=== PATIENT | female | born 1950 | race Caucasian/White ===

== ENCOUNTER 2024-01-25 14:23 | Outpatient (RCR) | payer MEDICARE, MEDICAID, SELFPAY ==
--- NOTE | 2024-01-25 17:02 | CTCCONSULT_ITS ---
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 Chilango Clinton DO Reason for consultation. 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 History of Present Illness: Patient is a 74-year-old lady with long history of smoking felt growing mass in the left neck, associated with some trouble swallowing and CT neck with contrast 11/07 revealed extensive infiltrating irregular enhancing soft tissue mass involving the epiglottis bilateral aryepiglottic folds left more than right with possible extension into the left false cord. There were also enlarged irregular left jugulodigastric and posterior cervical chain lymph nodes me asuring up to 2.3 cm in size concerning for tiffanie mets. The left neck lymph node underwent fine-need le aspiration 12/28/2023 revealing suspicious for metastatic carcinoma. On 01/13/2024 patient underwe nt rigid laryngoscopy with biopsy of epiglottis under general anesthesia. There was a large exophyti c mass including a portion of the anterior epiglottis as well as posterior surface heavily involved. Airway was intact. Biopsy revealed moderate chronic inflammation and negative for dysplasia or raheem gnancy. Had abdomen pelvis CT 12/16/2022 showing prominent sigmoid colon diverticulosis and a 4 mm p ulmonary nodule left lower lobe. Past Medical History: Prior CVA MS diabetes gallbladder stones Medications Effexor Singulair Lipitor hydrochlorothiazide Lasix Protonix Pepcid lisinopril iron Allergies none to meds Social History: Age of first 14 3 pregnancies 3 births currently lives with boyfriend in [facility] and lives part-time in [place]. Has smoked half pack a day for many years Review of Systems: Has trouble swallowing has had multiple joint pain Physical Exam: General: Well-appearing lady no acute distress HEENT: Easily visible and palpable epiglottic mass which measures about 3 x 4 cm with apparent extens ion into the posterior pharyngeal wall. Left neck mass in the upper jugular and posterior region cynthia suring 3 x 5 cm. Patient is edentulous with false teeth CV: Chest clear to auscultation heart regular rate and rhythm ABD: Soft no organomegaly tenderness EXT: No cyanosis clubbing or edema Assessment: 1. Patient with left neck mets N2 size with an obvious malignancy involving the supraglot tic region of epiglottis and adjacent tissues. 2. 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 3.. Even though the biopsy of the epiglottis area was negative, clinically and radiographically it was quite obviously a malignancy, and Dr Pabon who I spoke with today was concerned about her airway and wanted to start treatment as soon as possible not risk with delay or potential complication with a another biopsy attempt in the airway area. 4. PET scan for staging 5. Port will be scheduled. Patient refuses G-tube. 6. Medical oncologist Dr. Lazaro to see patient. 7. Approximately 7000 cGy via VMAT with modern treatment planning. Side effects explained. 8. Thank you very much for allowing me to evaluate and manage this patient. Cc: Chilango Pabon DO Electronically signed by: Marko Duran MD, DABR 01/25/2024 4:59 PM
--- NOTE | 2024-01-25 17:14 | CTCTXPLN_ITS ---
[facility] [place] [address] [place], [place] [address] Physician Clinical Treatment Planning Note Date of Service: 01/25/2024 Name: LEVI Ledbetter.: 1950 The patient has agreed to proceed with Radiation therapy. Tests and supporting medical records were interpreted to assist in defining the tumor location and extent of disease. Further imaging will be necessary to contour and delineate the volume to which the XRT will be provided. A. Treatment Intent: curative B. Modality: 6 MV C. Requested Technique: D. Treatment Site: head and neck E. Critical structures to be contoured on plan: F. In order to accomplish this plan, I am ordering/Prescribing the followin. Simulations (s) will be performed to accomplish a reproducible treatment position, to determine op timal treatment portals/beam arrangements, to design beam modifying devices and verify treatment port als on patient prior to the commencement of Radiation Therapy. 2. Devices; for immobilization and beam shapin. CT Guidance for placement of XRT cortés Scan area: 4. Portal images Frequency: 5. Invivo transit dose measurement once per week on all VMAT patients. 6. Special Physics Consult Requested for: 7. Other requests: special treatment chemo radiaton G. Dose Objectives: curative Electronically signed by: Marko Duran M.D. 01/25/2024 5:10 PM
--- NOTE | 2024-01-25 17:14 | CTCTXPLNST_ITS ---
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 Pt Treatment Intent: curative palliative other: Stage: Procedure CPT # Ordered Spec. Procedure 26583 1 Nugent Complex (set-up) 49105 Head and neck 1 Nugent Simple 43928 IMRT Plan 41069 1 MLC Devices VMAT 95200 3 Nugent 3 D 14773 TRTMT dev Complex 86670 aquaplast 1 TRTMT dev simple 38970 Basic Lawrence 51947 9 Special Dosimetry 58667 Spec Physics 72184 Port Films 12854 SRS Cranial/1FX 59527 SBR 5 FX or Less /ex: 5 = 5 fx 80465 IMRT Simple 01718 7000 35 IMRT Complex 68374 IGRT 06232 33 Rad del com 6- 36980 Rad del com 01-24 02010 Cont Med Physics 59259 7 Treatment Planning 83458 1 Rad del com 20 mev 18451 Rad del inter 6 73986 Rad del inter 01-24 28701 Rad del simple 6 02124 Rad del simple 01-24 40300 Special Port Plan 63662 TRTMT dev inter 86190 Isodose Complex 22347 Isodose simple 46654 Resp Motion Mgmt Simulation 95466 Placement of Fiducial Markers 37717 Electronically Signed By: Marko Duran MD, LARONR 01/25/2024 5:12 PM
== END 2024-02-05 23:59 | disposition home or self-care (01) ==
LOC: SCTC 14:23
PROVIDERS: PCP Family Medicine; Referring Provider Otolaryngology; Visit Provider Radiology Therapeutic Radiology
DX: C32.1 Malignant neoplasm of supraglottis (principal); C77.0 Secondary and unspecified malignant neoplasm of lymph nodes of head, face and neck; Z87.891 Personal history of nicotine dependence
CPT/HCPCS: 99213; G0463

== ENCOUNTER 2024-02-02 13:44 | Outpatient (AMB) | payer MEDICARE, MEDICAID, SELFPAY ==
--- NOTE | 2024-02-02 13:57 | PD.GSCLVISIT ---
Vital Signs - [facility] 02/02/24 13:59 Height 1.57 m Height Method Stated Weight 54.459 kg Weight Measurement Method Standing Scale BMI 22.1 BP 150/80 H Blood Pressure Source Automatic Cuff Blood Pressure Location Right Upper Arm Position Sitting Respiration 18 Pulse 75 Pulse Source Monitor Temp 97.2 F Temp Source Temporal Artery Scan Pulse Oximetry (%) 92 L Oxygen Delivery Method Room Air Med/Allergies Allergies & Medications Allergies No Known Allergies Allergy (Verified 02/02/24 14:03) Medication Reconciliation atorvastatin 40 mg tablet 40 mg PO QDAY 01/13/24 [History Confirmed 02/02/24] empagliflozin 25 mg tablet (Jardiance) 25 mg PO QAM 01/13/24 [History Confirmed 02/02/24] famotidine 20 mg tablet 20 mg PO QDAY 01/13/24 [History Confirmed 02/02/24] ferrous sulfate 325 mg (65 mg iron) tablet 325 mg PO TID 01/13/24 [History Confirmed 02/02/24] furosemide 20 mg tablet 20 mg PO BID 01/13/24 [History Confirmed 02/02/24] hydrochlorothiazide 25 mg tablet 25 mg PO QAM 01/13/24 [History Confirmed 02/02/24] hydrocodone 5 mg-acetaminophen 325 mg tablet 1 tab PO Q6H PRN Pain 01/13/24 [History Confirmed 02/02/24] lisinopril 2.5 mg tablet 2.5 mg PO QDAY 01/13/24 [History Confirmed 02/02/24] montelukast 10 mg tablet 10 mg PO QPM 01/13/24 [History Confirmed 02/02/24] pantoprazole 40 mg tablet,delayed release 40 mg PO QDAY 01/13/24 [History Confirmed 02/02/24] venlafaxine 75 mg tablet 75 mg PO QDAY 01/13/24 [History Confirmed 02/02/24] MA Intake Visit Data Collection New Patient or Established: Established Patient (seen at [facility] within 3 years) Reason for Visit:: PORT INSERTION REFERRAL Pain Present Currently: Yes Pain Location: Abdomen Pain scale:: 10 Pain Scale Used: Karly/Numerical Vision Specialist Required: No PCP or OBGYN visit in last 3 months: Yes Hx Now: No Do You Feel Safe at Home: Yes Authorities Contacted: N/A Smoking Status Smoking Status: Light (< 1 pack/day) Cessation Counseling Provided: LEVI was advised that quitting smoking is the single most important factor to protect the health of themselves and their family. Discussed the benefits of quitting smoking with patient. Encouraged patient to quit smoking and provided Cessation assistance materials and resources. Tobacco Use: Cigarette Years smoked: 50 Are you interested in quitting?: No Immunization / Flu Flu Vaccine in the Last 12 Months: No Flu Vaccine Exclusion Criteria: No Exclusion Criteria Past Medical History Past Medical History NEUROLOGIC: Positive Neurological Disorders and Cerebrovascular Accident ([facility] 2023); Negative Seizures CARDIAC: Positive Cardiac Disorders, Myocardial Infarction (yrs ago), Coronary Artery Disease and Peripheral Vascular Disease; Negative Congestive Heart Failure RESPIRATORY: Positive Asthma; Negative Chronic Obstructive Pulmonary Disease (COPD) GASTROINTESTINAL: Negative Gastrointestinal Disorders or Hepatitis GENITOURINARY: Positive Genitourinary Disorders and Renal Disease (stage 4) REPRODUCTIVE: Positive Previous Pregnancies (3) MUSCULOSKELETAL: Positive Arthritis and Fractures (elbow and toe many yrs ago) ENT: Positive Cataracts (bilateral) ENDOCRINE: Positive Endocrine Disorders and Diabetes Mellitus Type 2; Negative Diabetes Mellitus Type 1 HEMATOLOGIC: Negative Blood Disorders PSYCHO/SOCIAL: Positive Depression OTHER HISTORY: Positive Falls and Cancer (uterine); Negative Hospitalization (March for CVA,), Autoimmune Disease, Shingles, Blood Transfusions, Blood Transfusion Reaction or Anesthesia Reactions Family History FAMILY HISTORY: Positive Family Cancer and Family Surgery; Negative Family Psychiatric Problems, Family Respiratory Disorders, Family Cardiac Disorders, Family Gastrointestinal Problems or Family Anesthesia Reaction Surgical History SURGICAL: Positive Vascular Surgery (Recent femoral stents), Coronary Stent (5 yrs ago), Cardiac Catheterization, Pacemaker and Hysterectomy (with BSO) Social History SMOKING STATUS: Smoking status: Light (< 1 pack/day) ALCOHOL: Alcohol Intake: Never HOUSING: Housing: House [facility] HPI Narrative 74F recently diagnosed with stage Jesus supraglottic laryngeal CA. Pt had noticed a growing mass in the left neck and has undergone workup including CT, FNA of lymph node and rigid laryngoscopy with biopsy. She reports difficulty swallowing and lying down flat, denies any history of neck/chest catheterization PMH: AL, DM, CVA PSHx: PCI with cardiac stent in remote past, stents in each lower extremity Meds: singular, lipitor, HCTZ, protonix, lisinopril, iron; pt denies any antiplt or anticoagulation Allergies: NKDA ROS Review of Systems Systems Reviewed: All systems reviewed, normal except as documented Objective/Exam General General Appearance: alert, cooperative and well groomed Neck Neck exam: Present other (palpable left neck mass; no masses on right neck) Resp Respiratory exam: Absent respiratory distress Assessment & Plan Diagnosis / Problem List (1) Laryngeal cancer: Status: Acute Assessment & Plan: 74F needing chemoport to treat stage IV laryngeal CA. I explained benefits/risk of procedure including infection, bleeding, and injury to nearby structures including pneumothorax. I also explained that if the catheter cannot be safely placed into the R internal jugular vein I will have to abort as the left side of the neck is not available. Pt expressed understanding and agrees to proceed Advanced Care Planning Advance care planning discussed with:: patient Office Procedures GNS Level of Care Nursing/Assessment Patient Status: Established Patient Nursing Assessment/Reassesment: Medication Reconciliation, Update PMH in EMR and Vital Signs Coordination of Care: Complex Care and Chronic Disease 1-5, Education Complex Pt/Fam, Consent,records obtained, informed consent, 1 Ins Authorization, Results/Orders obtained and Staff clarify orders Established Patient Charge Established Patient Point Assignment: 110 Established Patient Point Charge: EP Level 3 (80-115) Patient Portal Questionaires Social History Living Situation History Housing: House Tobacco History Smoking Status: Light (< 1 pack/day) Alcohol History Alcohol Intake: Never Domestic Abuse History Do You Feel Safe at Home: Yes Review of Systems Report any current symptoms Only answer those that you have currently: Past Medical History Past Medical History Have you ever been diagnosed with any of the following: Neurological Problems Cerebrovascular Accident (CVA): Yes ([facility] 2023) Seizures: No Cardiology Problems Myocardial Infarction: Yes (yrs ago) Coronary Artery Disease: Yes Peripheral Vascular Disease: Yes Congestive Heart Failure: No Respiratory Problems Chronic Obstructive Pulmonary Disease (COPD): No Asthma: Yes Stomache/Intestinal Problems Hepatitis: No Genital/Urinary Problems Renal Disease: Yes (stage 4) Reproductive Problems Previous Pregnancies: Yes (3) Musculoskeletal Problems Arthritis: Yes Fractures: Yes (elbow and toe many yrs ago) Head,Eye,Nose,Throat Problems Cataracts: Yes (bilateral) Endocrine Problems Diabetes Mellitus Type 1: No Diabetes Mellitus Type 2: Yes Psychologic Problems Depression: Yes Other Problems Hospitalization: No (March for CVA,) Autoimmune Disease: No Shingles: No Falls: Yes Blood Transfusions: No Blood Transfusion Reaction: No Anesthesia Reactions: No Cancer: Yes (uterine) Surgical History Hysterectomy: Yes (with BSO) Pacemaker: Yes
[2024-02-02 13:59] VITALS: BP 150/80; PULSE 75; RESP 18; TEMP 36.2; O2SAT 92; BMI 22.1
== END 2024-02-02 14:35 | disposition home or self-care (01) ==
LOC: HODSRG 13:44
PROVIDERS: PCP Family Medicine; Referring Provider Radiology Therapeutic Radiology; Supervising Provider Surgery; Visit Provider Surgery
DX: C32.9 Malignant neoplasm of larynx, unspecified (principal); F17.210 Nicotine dependence, cigarettes, uncomplicated
CPT/HCPCS: 99213; G0463

== ENCOUNTER 2024-02-09 07:55 | Day surgery (SDC) | payer MEDICARE, MEDICAID, SELFPAY ==
[2024-02-07 12:37] VITALS: BMI 21.9
[2024-02-07 14:31] LABS: Basophils # (Auto) 0.1 Thou/mm3 (0.0-0.2); Basophils % (Auto) 1 % (0-2.5); Eosinophils # (Auto) 0.2 Thou/mm3 (0.0-0.5); Eosinophils % (Auto) 2 % (0-10); Hematocrit 36.7 % (36.0-46.0); Hemoglobin 11.6 g/dL (12.0-16.0); Immature Granulocytes % (Auto) 0 % (0-0); Immature Granulocytes Auto 0.02 Thou/mm3 (0.00-0.00); Lymphocytes # (Auto) 3.2 Thou/mm3 (1.0-4.8); Lymphocytes % (Auto) 32 % (10-50); Mean Corpuscular HGB Conc 31.6 g/dl (31.0-37.0); Mean Corpuscular Hemoglobin 27.8 pg (25.0-35.0); Mean Corpuscular Volume 88 fL (80-100); Monocytes # (Auto) 0.9 Thou/mm3 (0.0-0.8); Monocytes % (Auto) 9 % (0-12); Neutrophils # (Auto) 5.5 Thou/mm3 (1.8-7.7); Neutrophils % (Auto) 56 % (37-80); Nucleated Red Blood Cell % 0 /100 WBC (0); Platelet Count 317 Thou/mm3 (140-440); RDW Standard Deviation 46.1 fL (36.4-46.3); Red Blood Count 4.17 Miln/mm3 (4.00-5.20); White Blood Count 9.8 Thou/mm3 (3.6-11.0)
[2024-02-07 14:40] LABS: Partial Thromboplastin Time 25.6 Seconds (22.0-36.0); Prothrombin Time 11.2 Seconds (9.0-12.2)
[2024-02-07 15:29] LABS: Alanine Aminotransferase 10 U/L (10-49); Albumin, Serum 4.2 gm/dL (3.4-4.8); Albumin/Globulin Ratio 1.6 (1.2-2.2); Alkaline Phosphatase 74 U/L (46-116); Anion Gap 9 (7-16); Aspartate Amino Transferase 14 U/L (0-34); BUN/Creatinine Ratio 18 Ratio (12-20); Bilirubin,Total 0.3 mg/dL (0.3-1.2); Blood Urea Nitrogen 14 mg/dL (9-23); Calcium 9.1 mg/dL (8.3-10.6); Calcium (Corrected) 9.1 mg/dL (8.5-10.1); Carbon Dioxide 24.7 mMol/L (20.0-31.0); Chloride 107 mMol/L (98-107); Creatinine (Component) 0.8 mg/dL (0.6-1.3); Estimated Creatinine Clearance 48.1 mL/min (>60); Globulin 2.7 gm/dL (2.3-3.5); Glucose 142 mg/dL (74-106); Osmolality,Calculated 283 (275-295); Potassium 4.3 mMol/L (3.4-5.1); Sodium 141 mMol/L (136-145); Total Protein 6.9 gm/dL (5.7-8.2); eGFR > 60 See Note
[2024-02-09] VITALS (8 sets, daily range): BP systolic 139–164; BP diastolic 64–80; PULSE 70–83; RESP 15–20; TEMP 36.6–37.4; O2SAT 94–97; BMI 21.4
[2024-02-09] MEDS: RINGERS LACTATED 500 ML 500 ML 20 ML IV (08:35)
--- NOTE | 2024-02-09 10:30 | XR_ITS ---
Examination: AP chest single view Technique one AP portable supine chest single view INDICATIONS: Port-A-Cath insertion today Exam date and time: February 09, 2024 1103 hours FINDINGS: Right internal jugular Port-A-Cath tip SVC satisfactory addition No pneumothorax Normal heart size IMPRESSION: Right internal jugular Port-A-Cath tip SVC satisfactory position
--- NOTE | 2024-02-09 12:07 | SUR.PHASEII ---
pt arrived to PACu via gurney awake, alert, able to follow commands, breathing unlabored, dressing to upper right chest clean, dry, and intact x2, report from Rosa JUNG and Josh TROTTER
--- NOTE | 2024-02-09 12:19 | PD.SUROPNT ---
Date of Procedure 02/09/24 Pre Op Diagnosis Laryngeal cancer Post Op Diagnosis Same Procedure Insertion of Chemo-Port Findings Chemo-Port inserted into right internal jugular vein via ultrasound guidance Procedure Description After discussion of risks and benefits, patient was brought to the operating room and MAC anesthesia was induced. The neck was first examined with ultrasound and the right internal jugular vein was visualized. Patient was prepped and draped in the usual sterile fashion and received preoperative antibiotics. After timeout the ultrasound was again used to visualize the right internal jugular vein. The skin overlying the vein was infiltrated with half percent Marcaine and the vein was then accessed with a needle. Appropriate blood return was observed and the wire was inserted into the needle. Initially PVCs were observed, the wire was retracted and the PVCs resolved. X-ray was taken confirming proper positioning of the wire. At this point the pocket for the port was created approximately 2 fingerbreadths inferior to the right clavicle. The skin was infiltrated with half percent Marcaine and incised with a #15 blade. The tissues were dissected with electrocautery as well as blunt dissection to form a pocket that can accommodate the port. The skin at the insertion site of the wire on the neck was incised with a #11 blade. Additional Marcaine was given along the tract where the catheter was to be tunneled. The catheter was then tunneled through the port pocket through to the dermatotomy adjacent to the level wire. The dilator was then placed over the wire, taking care to maintain control of the wire throughout, and the wire was removed. The catheter was then inserted through the dilator and the sheath was removed. Proper positioning of the catheter was confirmed on x-ray. The distal aspect of the catheter was then cut to length and attached to the port itself. The port was aspirated showing proper blood return and flushed easily. The port was secured to the port pocket using two 2-0 Prolene sutures. The wound was irrigated and closed in 2 layers with 2-0 Vicryl followed by 4-0 Monocryl. The incision at the neck was closed with 4-0 Monocryl. Both incisions were covered with Dermabond. Patient was awoken and brought to PACU in stable condition Pathology / specimen None Estimated Blood Loss 10 Surgeon Hodan Stahl MD Surgical Staff Operation Date: 02/09/24 12:30 Case Staff [employer]: Sumit Higgins
--- NOTE | 2024-02-09 12:23 | ESDS_ITS ---
Planned Discharge Date 02/09/24 DS: Providers Provider Primary care physician: Jelani Jackson MD Attending Provider on Admission: Hodan Stahl MD Attending Provider on DC: Hodan Stahl MD Discharging Provider: Hodan Stahl MD Diagnosis Discharge Diagnosis (1) Laryngeal cancer: Status: Acute Problem List Completed Was Problem List Reviewed/Reconciled?: Yes Hospital Course Patient presented for planned Chemo-Port insertion for treatment of laryngeal cancer. Procedure was without complication and patient is appropriate for discharge home Exam Vital Signs Temp Pulse Resp BP Pulse Ox 99.3 F 83 20 139/74 H 97 02/09/24 08:21 02/09/24 08:21 02/09/24 08:21 02/09/24 08:21 02/09/24 08:21 Constitutional Constitutional: no acute distress Routine Respiratory Exam Respiratory: Present no resp distress Discharge Plan Plan Patient Disposition: HOME (Self Care) Prescriptions/Referrals Prescriptions/Med Rec: No Action atorvastatin 40 mg Tablet 40 mg PO QDAY venlafaxine 75 mg Tablet 75 mg PO QDAY hydrocodone-acetaminophen 5-325 mg Tablet 1 tab PO Q6H PRN (Reason: Pain) pantoprazole 40 mg Tablet,Delayed Release (Dr/Ec) 40 mg PO QDAY ferrous sulfate 325 mg (65 mg iron) Tablet 325 mg PO QDAY montelukast 10 mg Tablet 10 mg PO QPM hydrochlorothiazide 25 mg Tablet 25 mg PO QAM furosemide 20 mg Tablet 20 mg PO BID lisinopril 2.5 mg Tablet 2.5 mg PO QDAY Jardiance 25 mg Tablet 25 mg PO QAM Referrals: Hodan Stahl MD [Family Provider] - (Please feel free to call the office with any concern or question) Jelani Jackson([facility])MD [Primary Care Provider] - Patient/Caregiver Discharge Instructions Education Materials: Vascular Access Port Implantation Print Language: Eritrean Stand Alone Forms: Miya Award Info., Patient Portal Info Letter Discharge Order Discharge Orders: Discharge (Routine); Ordered 02/09/24 Ordered By: Hodan Stahl Results Results: Laboratory Laboratory results: results reviewed Procedures Procedure Date 02/09/24 Procedures Insertion of Chemo-Port
--- NOTE | 2024-02-09 12:25 | SUR.PHASEII ---
1225 Report received from Santa Griffin RN, this fha underwriter will assume care of patient
--- NOTE | 2024-02-09 12:25 | SUR.PHASEII ---
report to Santa Arcos RN
--- NOTE | 2024-02-09 12:44 | SUR.PHASEII ---
patient eating a jello tolerating well
--- NOTE | 2024-02-09 13:15 | SUR.PHASEII ---
1315 Patient meets discharge criteria from recovery, awake and alert, breathing unlabored, vital signs stable, denies pain, dressing intact; no bleeding noted, patient ate a jello and drinking water, tolerating well; denies nausea, patient assisted with dressing into her clothing by staff, discharge instructions given to patient and patients spouse, spouse signed discharge instructions. Patient given all her belongings prior to discharge, transported via wheelchair and left in a private vehicle.
== END 2024-02-09 13:15 | disposition home or self-care (01) ==
PROVIDERS: Anesthesiology; Family Provider Surgery; PCP Family Medicine; Referring Provider Surgery; Visit Provider Surgery
PROC: (CPT 36561; principal; 2024-02-09 12:15)
DX: C32.9 Malignant neoplasm of larynx, unspecified (principal)
CPT/HCPCS: 36561; 36415; 71046; 80048; 80053; 85025; 85610; 85730; A4649; C1788; J0690; J1643; J1644; J2250; J3010; J3490; J7050; J7120

== ENCOUNTER 2024-02-17 08:06 | Outpatient (RCR) | payer MEDICARE, MEDICAID, SELFPAY ==
--- NOTE | 2024-02-07 15:59 | CTCSNOTE_ITS ---
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 (C) CT slices included head and neck (D) VMAT Will be needed for maximum sparing of adjacent normal critical structures. (E) Patient tolerated the simulation well and left the room in good condition. Electronically signed by: Marko Duran MD, LARONR 02/07/2024 3:56 PM
--- NOTE | 2024-02-17 12:56 | CTCCONSULT_ITS ---
Patient: LEVI HOSKINS : 1950 MR#: [id number] Page 2 of 2 CONSULTATION NOTE DATE OF CONSULTATION: 02/17/2024 NAME: LEVI HOSKINS ACCOUNT: [id number] : 1950 AGE: 74 REFERRING PHYSICIAN: Jelani Jackson MD PRIMARY PHYSICIAN: Jelani Jackson MD REASON FOR VISIT/Interval history : Patient is newly diagnosed with a laryngeal cancer. Patient is already seen by radiation oncologist and was advised that she will get chemoradiation. Patient is unable to tell if she has seen head and neck surgeon and was evaluated and found not to be a surgical candidate with or without laryngeal sp aring procedure. Patient is companied by her boyfriend. She has been having symptoms from this [facility] for at least 1 and half years. Patient is having difficulty in swallowing. She also have hearing issues at the baseline and she attributes that to the growth of cancer ONCOLOGY HISTORY: DIAGNOSIS: Malignant neoplasm of overlapping sites of larynx [ICD10] C32.8; Malignant neoplasm of larynx, unspec ified [ICD10] C32.9 DATE OF DIAGNOSIS: 12/29/2023 STAGE/TNM: IVB TX N2c M0 TREATMENT HISTORY: HISTORY OF PRESENT ILLNESS: 74-year-old female who is a current smoker with at least half pack a day is here for establishing car e. Patient says that she started noticing change in her voice as well as difficulty swallowing for a bout 1 and half year. She is has been investigated extensively and was not found to have any cancer until recently when she had a diagnosis of laryngeal cancer. She would like to preserve her voice an d do not want surgical intervention. Patient will like to have more conservative treatment with chem otherapy and radiation. Patient have a boyfriend who will be helping Ms. Hoskins and do not have any immediate family to sup port her during her treatment. 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 Tobacco Use:?SMOKED 1-2 PPD X 60YRS; SMOKING 1/2 PPD NOW ETOH?Use:?DENIES Drug?Note:?DENIES Social?History?Note:?LIVES?WITH?PARTNER [employer] HISTORY: Menarche?-?Age:?8 Menopause:?19 Hormone?Use:?DENIES :?3 Live?Births:?3 Age?1st?:?14 MEDICATIONS: 1. atorvastatin - 40 mg 1 tab Daily 2. Effexor XR - 75 mg Daily 3. hydrochlorothiazide - 25 mg Daily 4. HYDROcodone-acetaminophen - 10-325 mg 1 tab Every 6 Hours 5. Jardiance - 25 mg 1 tab Daily 6. Lasix - 20 mg Daily 7. Lipitor - 40 mg Daily 8. lisinopril - 2.5 mg Daily 9. Pepcid - 20 mg Daily 10. Protonix - 40 mg Daily 11. Singulair - 10 mg Daily 12. Vitamin D - 5,000 unit 1 tab Daily?Palabra Meds? Medications Last Reconciled by Oneyda Doan RN on 02/17/2024 ALLERGIES: No Known Drug Allergies REVIEW OF SYSTEMS: A complete 14-point review of systems was performed and is negative except as noted in interval histo ry. PHYSICAL EXAMINATION: VITAL SIGNS: Temperature?99.9, B/P?173/69, Height?62.5?inches, Oxygen?Saturation?97% Weight?116?lbs ( Change?since?01/25/24:?-3?lbs) PAIN: 9 - Between very severe and worst possible pain ECOG Performance Status: 2 - Symptomatic; ambulatory; capable of self-care; >50% of waking hrs. not i n bed GENERAL APPEARANCE: Appears well, in no apparent distress, appropriately interactive. HEENT: Normocephalic, no temporal wasting, normal conjunctiva, no scleral icterus, normal hearing, li ps without lesions, neck normal range of motion. CARDIOVASCULAR: Not assessed. PULMONARY: Normal respiratory effort, no respiratory distress or use of accessory muscles, speaking i n full sentences, no tachypnea. EXTREMITIES: No pedal edema or cyanosis. SKIN: Normal skin appearance. NEUROLOGIC: Alert and ORIENTED x4. PSHYCHIATRIC: Appropriate affect, mood normal, behavior normal, intact thought and speech. LABORATORY DATA: I have personally reviewed and interpreted each of the patient?s relevant lab tests, abnormal finding s are below: Date 02/07/24 ??WHITE?BLOOD?COUNT?(Thou/mm3) 9.8 ??RED?BLOOD?COUNT?(Miln/mm3) 4.17 ??HEMOGLOBIN?(gm/dl) 11.6?L ??HEMATOCRIT?(%) 36.7 ??PLATELET?COUNT?(Thou/mm3) 317 ??NEUTROPHILS?%,?AUTO?(%) 56 ??LYMPH?%,?AUTO?(%) 32 ??NEUTROPHILS,?AUTO?(Thou/mm3) 5.5 Assessment and plan Laryngeal cancer at least stage Jesus CT scan of the neck reviewed which shows extensive infiltrating irregular enhancing soft tissue mass involving the epiglottitis bilateral aryepiglottic folds left more than right and possible extension to left false vocal cord. Also noted enlarged irregular left jugulodigastric and posterior cervical lymph nodes measuring up to 2.3 cm concerning for tiffanie mets Patient's pathology report of the left neck mass shows metastatic carcinoma Patient will be a good candidate for concurrent chemoradiation with carboplatin and 5-FU I discussed with Ms. Hoskins that she need nutritional support. Patient already have dysphagia whic h will get worsened with the start of radiation. Patient agreed to proceed with G-tube. Will get PE G tube placed. Patient already have port catheter. Nutrition consult to help with the diet and nutr ition Patient not a good candidate for cisplatin as she has baseline hearing issues We will get NGS panel to see if patient has a p16 positive or negative cancer Will get CT scan chest to evaluate for any metastatic disease in the chest. Reviewed CT abdomen and there was no concern for any metastasis there CBC and CMP today or tomorrow CBC CMP foundation testing on the tumor biopsy and CT scan chest IR or GI referral for G-tube placed RETURN TO CLINIC: In 3 weeks BILLING AND COMPLIANCE: I reviewed external records from providers outside my specialty as summarized above. I spent a total of 50 minutes on this patient?s care on the day of their visit excluding time spent related to any bi lled procedures. This time includes time spent with the patient as well as time spent documenting in the medical record, reviewing patients records and tests, obtaining history, placing orders, communi cating with other healthcare professionals, counseling the patient, family or caregiver, and/or care coordination for the diagnoses above. Electronically Signed by: Schuyler Lazaro MD T: 12:53 PM CC: PCP: Jelani Jackson Referring: Jelani Jackson This document was completed utilizing speech recognition software. Grammatical errors, random word in sertions, pronoun errors, and incomplete sentences are an occasional consequence of this system due t o software limitations, ambient noise, and hardware issues. Any formal questions or concerns about th e content, text or information contained within the body of this dictation should be directly address ed to the provider for clarification.
[2024-02-23 16:03] VITALS: BMI 20.2
== END 2024-03-07 23:59 | disposition home or self-care (01) ==
LOC: SCTC 08:06
PROVIDERS: PCP Family Medicine; Referring Provider Family Medicine; Visit Provider Internal Medicine Hematology & Oncology
DX: C32.8 Malignant neoplasm of overlapping sites of larynx (principal)
CPT/HCPCS: 77014; 77290; 77300; 77301; 77334; 77338; 99213; G0463

== ENCOUNTER → 2024-02-24 | Outpatient (CLI) | payer MEDICARE, MEDICAID, SELFPAY ==
--- NOTE | 2024-02-24 10:15 | XR_ITS ---
EXAMINATION: PET/CT FUSION SKULL TO THIGH EXAM DATE AND TIME: February 24, 2024 1047 hours INDICATIONS: Diagnosis head and neck cancer, staging prior to treatment CTDI:vol (mGy) 3.51 DLP: (mGycm) 320 PROCEDURE: 320 mCi FDG was administered intravenously To allow for distribution and uptake of radiotracer, the patient was allowed to rest quietly in a shielded room. Imaging was performed on an integrated 16-slice PET/CT scanner, with scanning from the skull base to the mid thigh. Serum blood glucose at the time of the injection was measured 145 mg/dL. CT scanning was performed without oral or intravenous contrast material. FINDINGS: Head and Neck: 12 mm hypermetabolic mass in the anterior oropharynx 5.5 cm hypermetabolic metastatic left cervical lymphadenopathy axial image 68 10 mm hypermetabolic lymph node axial image 78 lateral to the larynx Chest: 12 mm hypermetabolic left hilar lymphadenopathy 10 mm hypermetabolic right hilar lymphadenopathy Multiple bilateral pulmonary nodules, the largest is hypermetabolic in the left upper lobe axial image 111 Abdomen and Pelvis: There is no tiffanie hypermetabolism in retroperitoneal or pelvic chains. The spleen is normal in size and FDG avidity. Musculoskeletal: Marrow uptake is within normal range. IMPRESSION: 12 mm hypermetabolic mass anterior oropharynx 5.5 cm hypermetabolic metastatic left cervical carotid triangle lymphadenopathy 10 mm hypermetabolic metastatic lymph node lateral to the larynx on the left side Hypermetabolic metastatic bilateral hilar lymphadenopathy Bilateral pulmonary metastatic nodules, the largest hypermetabolic in the left upper lobe 16 mm
[2024-02-24 12:36] LABS: Basophils # (Auto) 0.1 Thou/mm3 (0.0-0.2); Basophils % (Auto) 1 % (0-2.5); Eosinophils # (Auto) 0.1 Thou/mm3 (0.0-0.5); Eosinophils % (Auto) 2 % (0-10); Hematocrit 35.8 % (36.0-46.0); Hemoglobin 11.4 g/dL (12.0-16.0); Immature Granulocytes % (Auto) 0 % (0-0); Immature Granulocytes Auto 0.01 Thou/mm3 (0.00-0.00); Lymphocytes # (Auto) 2.8 Thou/mm3 (1.0-4.8); Lymphocytes % (Auto) 34 % (10-50); Mean Corpuscular HGB Conc 31.8 g/dl (31.0-37.0); Mean Corpuscular Hemoglobin 27.5 pg (25.0-35.0); Mean Corpuscular Volume 87 fL (80-100); Monocytes # (Auto) 0.7 Thou/mm3 (0.0-0.8); Monocytes % (Auto) 9 % (0-12); Neutrophils # (Auto) 4.5 Thou/mm3 (1.8-7.7); Neutrophils % (Auto) 55 % (37-80); Nucleated Red Blood Cell % 0 /100 WBC (0); Platelet Count 256 Thou/mm3 (140-440); RDW Standard Deviation 43.3 fL (36.4-46.3); Red Blood Count 4.14 Miln/mm3 (4.00-5.20); White Blood Count 8.3 Thou/mm3 (3.6-11.0)
[2024-02-24 12:52] LABS: Alanine Aminotransferase < 7 U/L (10-49); Albumin, Serum 3.7 gm/dL (3.4-4.8); Albumin/Globulin Ratio 1.3 (1.2-2.2); Alkaline Phosphatase 96 U/L (46-116); Anion Gap 7 (7-16); Aspartate Amino Transferase 11 U/L (0-34); BUN/Creatinine Ratio 23 Ratio (12-20); Bilirubin,Total 0.3 mg/dL (0.3-1.2); Blood Urea Nitrogen 18 mg/dL (9-23); Calcium 9.5 mg/dL (8.3-10.6); Calcium (Corrected) 9.7 mg/dL (8.5-10.1); Carbon Dioxide 28.4 mMol/L (20.0-31.0); Chloride 107 mMol/L (98-107); Creatinine (Component) 0.8 mg/dL (0.6-1.3); Globulin 2.9 gm/dL (2.3-3.5); Glucose 133 mg/dL (74-106); Osmolality,Calculated 287 (275-295); Potassium 4.2 mMol/L (3.4-5.1); Sodium 142 mMol/L (136-145); Total Protein 6.6 gm/dL (5.7-8.2); eGFR > 60 See Note
== END | disposition home or self-care (01) ==
LOC: CDIM 09:48 → COPL 11:20 → CDIM 02-28 06:33
PROVIDERS: PCP Family Medicine; Referring Provider Radiology Therapeutic Radiology; Visit Provider Radiology Therapeutic Radiology
DX: R22.0 Localized swelling, mass and lump, head (principal); R59.1 Generalized enlarged lymph nodes; C78.02 Secondary malignant neoplasm of left lung; C78.01 Secondary malignant neoplasm of right lung; C78.39 Secondary malignant neoplasm of other respiratory organs; C32.8 Malignant neoplasm of overlapping sites of larynx
CPT/HCPCS: 36415; 78815; 80053; 85025; A9552

== ENCOUNTER → 2024-03-10 | Outpatient (CLI) | payer MEDICARE, MEDICAID, SELFPAY ==
--- NOTE | 2024-03-10 13:00 | XR_ITS ---
Examination: CT chest with intravenous contrast 2-D sagittal and coronal reconstructions Exam date and time: March 10, 2024 1404 hours INDICATIONS: Diagnosis malignant neoplasm of overlapping sites of the larynx, diagnosed 2 months ago, PET/CT scan February 24, 2024 12 mm left hilar lymphadenopathy 10 mm right hilar lymphadenopathy multiple bilateral pulmonary nodules CTDI:vol (mGy) 6.89 DLP: (mGycm) 235 Technique: Multiple axial sections of the thorax have been obtained. Sections have been obtained, 3 mm slice thickness. Mediastinal and lung density settings have been obtained. Intravenous contrast administered, C [id number]. 2-D sagittal, coronal images obtained. Low dose protocols were performed. One or more of the following dose reduction techniques were used; automated exposure control, adjustment of the mA and/or KV according to patient size, use of iterative reconstruction technique. Findings: 14 mm right tracheobronchial lymph node, 14 mm right hilar 18 mm left hilar lymphadenopathy 12 mm precarinal lymph node 12 mm subcarinal lymph node At least 18 bilateral pulmonary metastatic nodules, the largest in the anterior segment left upper lobe 12 mm and in the anterior left hilar region 23 mm No lobar pneumonia No visualized liver or splenic lesion Absent gallbladder No pancreatic or adrenal mass No hydronephrosis Severe osteopenia IMPRESSION: Metastatic mediastinal lymphadenopathy Numerous metastatic pulmonary nodules
== END | disposition home or self-care (01) ==
LOC: SCAT 03-16 10:20
PROVIDERS: PCP Family Medicine; Referring Provider Internal Medicine Hematology & Oncology; Visit Provider Internal Medicine Hematology & Oncology
DX: C32.8 Malignant neoplasm of overlapping sites of larynx (principal); C78.00 Secondary malignant neoplasm of unspecified lung
CPT/HCPCS: 71260; A4649; Q9967

== ENCOUNTER 2024-03-23 06:37 | Outpatient (CLI) | payer MEDICARE, MEDICAID, SELFPAY ==
[2024-03-23] VITALS (13 sets, daily range): BP systolic 123–166; BP diastolic 62–73; PULSE 71–90; RESP 14–23; TEMP 36.6–37.1; O2SAT 90–100; BMI 18.4
--- NOTE | 2024-03-23 | XR_ITS ---
Examination: AP chest single view TECHNIQUE: AP portable chest single view Exam date and time: January 21, 2025 1108 hours INDICATIONS: Post lung biopsy. FINDINGS: No pneumothorax post lung biopsy Skinfold over the lower hemithoraces Normal heart size IMPRESSION: No pneumothorax post lung biopsy
[2024-03-23 07:12] LABS: Basophils % (Auto) 1 % (0-2.5); Eosinophils # (Auto) 0.1 Thou/mm3 (0.0-0.5); Eosinophils % (Auto) 1 % (0-10); Hemoglobin 10.7 g/dL (12.0-16.0); Immature Granulocytes % (Auto) 0 % (0-0); Immature Granulocytes Auto 0.03 Thou/mm3 (0.00-0.00); Lymphocytes # (Auto) 2.1 Thou/mm3 (1.0-4.8); Lymphocytes % (Auto) 24 % (10-50); Mean Corpuscular HGB Conc 31.5 g/dl (31.0-37.0); Mean Corpuscular Hemoglobin 26.7 pg (25.0-35.0); Mean Corpuscular Volume 85 fL (80-100); Monocytes # (Auto) 0.8 Thou/mm3 (0.0-0.8); Monocytes % (Auto) 9 % (0-12); Neutrophils # (Auto) 5.8 Thou/mm3 (1.8-7.7); Neutrophils % (Auto) 66 % (37-80); Nucleated Red Blood Cell % 0 /100 WBC (0); Platelet Count 274 Thou/mm3 (140-440); RDW Standard Deviation 43.7 fL (36.4-46.3); Red Blood Count 4.01 Miln/mm3 (4.00-5.20); White Blood Count 8.8 Thou/mm3 (3.6-11.0)
[2024-03-23 07:38] LABS: Partial Thromboplastin Time 26.7 Seconds (22.0-36.0); Prothrombin Time 11.2 Seconds (9.0-12.2)
[2024-03-23 07:40] LABS: Blood Urea Nitrogen 17 mg/dL (9-23); Creatinine (Component) 0.8 mg/dL (0.6-1.3); eGFR > 60 See Note
--- NOTE | 2024-03-23 08:30 | XR_ITS ---
Examination: CT guided percutaneous biopsy pulmonary nodule left upper lobe CT thorax without intravenous contrast Date and time of procedure: March 23, 2024 1046 hours INDICATIONS: Bilateral pulmonary nodules on PET CT scan February 24, 2024 Informed consent provided. A timeout was completed verifying correct patient, procedure, site and positioning. Technique: Axial 3 mm sections were obtained for localization of the left upper lobe pulmonary nodule Appropriate area is marked. The patient's site was prepped and draped in sterile fashion Maximal sterile barrier technique utilized, including hand hygiene Local anesthesia was obtained with 1% lidocaine. Low dose protocols were performed. One or more of the following dose reduction techniques were used; automated exposure control, adjustment of the mA and/or KV according to patient size, use of iterative reconstruction technique. Utilizing CT fluoroscopic guidance 2 core biopsies obtained of the pulmonary nodule left upper lobe Patient appears in stable condition during this procedure. At completion of the procedure, the patient is in satisfactory condition. Estimated blood loss 0 cc Complete pathology report to follow. Impression: Successful CT-guided percutaneous biopsy of the pulmonary nodule anterior left upper lobe
[2024-03-23] MEDS: fentaNYL CIT INJ 50 mCg/ML AMP 2ML 25 MCG IVP (10:55)
--- NOTE | 2024-03-23 11:07 | PC.NURSE ---
1107 patient is awake, alert, breathing unlabored, s/p left lung biopsy, dressing dry with no bleeding, stat xray completed, second xray ordered for 1hr later. patient transferred to brine room laborer for recovery.
--- NOTE | 2024-03-23 11:36 | PC.NURSE ---
1130 report given to Cecy JUNG
--- NOTE | 2024-03-23 12:07 | XR_ITS ---
Examination: AP chest single view TECHNIQUE: AP upright portable chest single view Exam date and time: General 16 201907/17/2020 hour INDICATIONS: Post lung biopsy today. FINDINGS: No pneumothorax post lung biopsy Right Port-A-Cath line in satisfactory position IMPRESSION: No pneumothorax post lung biopsy
== END 2024-03-23 12:40 | disposition home or self-care (01) ==
PROVIDERS: Radiology Diagnostic Radiology; PCP Family Medicine; Referring Provider Radiology Therapeutic Radiology; Visit Provider Radiology Therapeutic Radiology
DX: R91.1 Solitary pulmonary nodule (principal); C32.8 Malignant neoplasm of overlapping sites of larynx; C34.92 Malignant neoplasm of unspecified part of left bronchus or lung; Z01.812 Encounter for preprocedural laboratory examination
CPT/HCPCS: 32408; 36415; 77012; 82565; 84520; 85025; 85610; 85730; J3010

== ENCOUNTER 2024-03-27 08:43 | Outpatient (RCR) | payer MEDICARE, MEDICAID, SELFPAY ==
[2024-03-23 14:11] LABS: Basophils # (Auto) 0.1 Thou/mm3 (0.0-0.2); Basophils % (Auto) 1 % (0-2.5); Eosinophils # (Auto) 0.1 Thou/mm3 (0.0-0.5); Eosinophils % (Auto) 1 % (0-10); Hematocrit 33.2 % (36.0-46.0); Hemoglobin 10.5 g/dL (12.0-16.0); Immature Granulocytes % (Auto) 0 % (0-0); Immature Granulocytes Auto 0.03 Thou/mm3 (0.00-0.00); Lymphocytes # (Auto) 3.1 Thou/mm3 (1.0-4.8); Lymphocytes % (Auto) 33 % (10-50); Mean Corpuscular HGB Conc 31.6 g/dl (31.0-37.0); Mean Corpuscular Hemoglobin 26.8 pg (25.0-35.0); Mean Corpuscular Volume 85 fL (80-100); Monocytes # (Auto) 0.8 Thou/mm3 (0.0-0.8); Monocytes % (Auto) 9 % (0-12); Neutrophils # (Auto) 5.2 Thou/mm3 (1.8-7.7); Neutrophils % (Auto) 56 % (37-80); Nucleated Red Blood Cell % 0 /100 WBC (0); Platelet Count 307 Thou/mm3 (140-440); RDW Standard Deviation 43.6 fL (36.4-46.3); Red Blood Count 3.92 Miln/mm3 (4.00-5.20); White Blood Count 9.2 Thou/mm3 (3.6-11.0)
[2024-03-23 14:28] LABS: Alanine Aminotransferase < 7 U/L (10-49); Albumin, Serum 3.6 gm/dL (3.4-4.8); Albumin/Globulin Ratio 1.1 (1.2-2.2); Alkaline Phosphatase 76 U/L (46-116); Anion Gap 5 (7-16); Aspartate Amino Transferase 15 U/L (0-34); BUN/Creatinine Ratio 23 Ratio (12-20); Bilirubin,Total 0.3 mg/dL (0.3-1.2); Blood Urea Nitrogen 16 mg/dL (9-23); Calcium (Corrected) 9.3 mg/dL (8.5-10.1); Carbon Dioxide 30.4 mMol/L (20.0-31.0); Chloride 106 mMol/L (98-107); Creatinine (Component) 0.7 mg/dL (0.6-1.3); Globulin 3.2 gm/dL (2.3-3.5); Glucose 121 mg/dL (74-106); Osmolality,Calculated 283 (275-295); Potassium 4.1 mMol/L (3.4-5.1); Sodium 141 mMol/L (136-145); Total Protein 6.8 gm/dL (5.7-8.2); eGFR > 60 See Note
[2024-03-24 09:53] LABS: Basophils # (Auto) 0.1 Thou/mm3 (0.0-0.2); Basophils % (Auto) 1 % (0-2.5); Eosinophils % (Auto) 0 % (0-10); Hematocrit 30.9 % (36.0-46.0); Hemoglobin 9.9 g/dL (12.0-16.0); Immature Granulocytes % (Auto) 0 % (0-0); Immature Granulocytes Auto 0.03 Thou/mm3 (0.00-0.00); Lymphocytes # (Auto) 2.4 Thou/mm3 (1.0-4.8); Lymphocytes % (Auto) 24 % (10-50); Mean Corpuscular Hemoglobin 26.8 pg (25.0-35.0); Mean Corpuscular Volume 84 fL (80-100); Monocytes # (Auto) 0.7 Thou/mm3 (0.0-0.8); Monocytes % (Auto) 7 % (0-12); Neutrophils # (Auto) 6.7 Thou/mm3 (1.8-7.7); Neutrophils % (Auto) 68 % (37-80); Nucleated Red Blood Cell % 0 /100 WBC (0); Platelet Count 291 Thou/mm3 (140-440); RDW Standard Deviation 43.2 fL (36.4-46.3); Red Blood Count 3.69 Miln/mm3 (4.00-5.20); White Blood Count 9.8 Thou/mm3 (3.6-11.0)
[2024-03-24 10:17] LABS: Alanine Aminotransferase < 7 U/L (10-49); Albumin, Serum 3.6 gm/dL (3.4-4.8); Albumin/Globulin Ratio 1.2 (1.2-2.2); Alkaline Phosphatase 75 U/L (46-116); Anion Gap 5 (7-16); Aspartate Amino Transferase < 10 U/L (0-34); BUN/Creatinine Ratio 23 Ratio (12-20); Bilirubin,Total 0.3 mg/dL (0.3-1.2); Blood Urea Nitrogen 18 mg/dL (9-23); Calcium 8.8 mg/dL (8.3-10.6); Calcium (Corrected) 9.1 mg/dL (8.5-10.1); Carbon Dioxide 29.8 mMol/L (20.0-31.0); Chloride 103 mMol/L (98-107); Creatinine (Component) 0.8 mg/dL (0.6-1.3); Globulin 2.9 gm/dL (2.3-3.5); Glucose 175 mg/dL (74-106); Osmolality,Calculated 281 (275-295); Potassium 4.3 mMol/L (3.4-5.1); Sodium 138 mMol/L (136-145); Total Protein 6.5 gm/dL (5.7-8.2); eGFR > 60 See Note
== END 2024-04-07 23:59 | disposition home or self-care (01) ==
LOC: SCTC 08:43
PROVIDERS: Internal Medicine Hematology & Oncology; PCP Family Medicine; Referring Provider Radiology Therapeutic Radiology; Visit Provider Radiology Therapeutic Radiology
DX: Z51.0 Encounter for antineoplastic radiation therapy (principal); C32.8 Malignant neoplasm of overlapping sites of larynx; C34.12 Malignant neoplasm of upper lobe, left bronchus or lung; Z01.812 Encounter for preprocedural laboratory examination
CPT/HCPCS: 32408; 36415; 36591; 77012; 77300; 77301; 77336; 77338; 77385; 80053; 82565; 84520; 85025; 85610; 85730; 96360; 96361; 99424; 99425; A4216; J1100; J1642; J2405; J3010; J7030; J7050; J9045; J9190

== ENCOUNTER 2024-03-27 10:05 | Inpatient (IN) | payer MEDICARE, MEDICAID, SELFPAY ==
--- NOTE | 2024-03-27 10:22 | PD.EDADULT ---
ED General RME/HPI General Chief complaint: Dental/Oral/Throat Stated complaint: CA OF LARYNX, UNABLE TO EAT x 2 DAYS, POOD AIRWAY Time Seen by Provider: 03/27/24 10:22 Arrival date/time: 03/27/24 10:05 RME / HPI RME / HPI narrative: 74 year old female with history of laryngeal cancer undergoing radiation therapy, on 2L home oxygen PRN presents to the ED sent by oncologist Dr. Duran for difficulty eating and drinking. Patient reports in the last 2 days is having difficulty eating/drinking/swallowing and feels very dehydrated. States she was scheduled to receive chemotherapy for the first time today. However sent here due to difficulty swallowing and possible PEG tube placement. Denies fevers, chills, nausea, vomiting, diarrhea, or urinary symptoms. Last radiation performed today and states she undergoes radiation Wednesday through Wednesday. Related Data Home Medications ?Medication ?Instructions ?Recorded ?Confirmed furosemide 20 mg tablet 20 mg PO BID 01/13/24 03/23/24 hydrocodone 5 mg-acetaminophen 325 1 tab PO Q6H PRN Pain 01/13/24 03/23/24 mg tablet Allergies Allergy/AdvReac Type Severity Reaction Status Date / Time No Known Allergies Allergy Verified 03/27/24 10:10 Review of Systems Review of Systems Narrative Review of Systems: GEN: No fever, no chills, +feels dehydrated EYES: No discharge, no visual changes, no pain HEENT: +difficulty swallowing. No ear pain, no congestion, no sore throat PULM: No shortness of breath, no cough, no congestion CV: No chest pain, no dyspnea on exertion, no palpitations GI: No nausea, no vomiting, no diarrhea, no pain, no constipation : No frequency, no urgency and no dysuria MUSC/SKEL No joint pain, no back pain SKIN: No rash NEURO: No weakness, no headache Past Medical History Past Medical History NEUROLOGIC: Positive Cerebrovascular Accident (Jaunuary 2023) CARDIAC: Positive Cardiac Disorders, Myocardial Infarction (yrs ago), Coronary Artery Disease, Peripheral Vascular Disease and Hypercholesterolemia RESPIRATORY: Positive Asthma GENITOURINARY: Positive Genitourinary Disorders and Renal Disease (stage 4) REPRODUCTIVE: Positive Previous Pregnancies (3) MUSCULOSKELETAL: Positive Musculoskeletal Disorders, Arthritis and Fractures (elbow and toe many yrs ago) ENT: Positive Cataracts (bilateral) ENDOCRINE: Positive Endocrine Disorders and Diabetes Mellitus Type 2 PSYCHO/SOCIAL: Positive Depression OTHER HISTORY: Positive Falls (02/06/24), Radiation Therapy, Chicken Pox and Cancer (uterine; throat cancer) Family History FAMILY HISTORY: Positive Family Cancer and Family Surgery Surgical History SURGICAL: Positive Vascular Surgery, Coronary Stent, Cardiac Catheterization and Hysterectomy (with BSO); Negative Pacemaker Social History SMOKING STATUS: Heavy (> 1 pack/day) ED Exam Narrative Physical exam: GENERAL APPEARANCE: Well hydrated, well nourished, in no acute distress. VITALS: All vitals were reviewed and the pulse ox is 93% on room air which is normal according to my interpretation. HEENT: Normocephalic, atramatic, EOMI, EACs are patent. There is no bulge or retraction. Throat without erythema or exudate. No drooling, no trismus, no stridor. Moist oromucosa. No jaundice NECK: Supple, no JVD or bruits. CARDIOVASCULAR: Heart regular without S3-S4 or murmur. No rubs or gallops. LUNGS/CHEST: Clear to auscultation bilaterally. No rales, rhonchi, or wheezing. Normal inspection. ABDOMEN: Soft, nontender, with normal bowel sounds. No pulsatile masses. No rebound, rigidity, or guarding. No incarcerated hernia. Normal inspection and palpation. EXTREMITIES: Normal inspection and palpation. No edema, clubbing, or cyanosis. Intact CSM SKIN: Warm and dry without rashes. Normal inspection. MUSCULOSKELETAL: Normal inspection. No gross deformity, full ROM all extremities NEURO: Alert and oriented x3. Cranial nerves II through XII grossly intact. There are no other motor or sensory deficits noted. PSYCHIATRIC: Normal mood and affect. No psychosis Course Quality Measures none Orders Category Date Time Status Saline [Insert IV] NOW Care 03/27/24 10:48 Active XR chest 1V portable Stat Exams 03/27/24 10:48 Completed BNP [B-Type Natriuretic Peptide] Stat Lab 03/27/24 10:50 Completed CBC Stat Lab 03/27/24 10:50 Completed CMP [Comprehensive Metabolic Panel] Stat Lab 03/27/24 10:50 Completed PT [Prothrombin Time with INR] Stat Lab 03/27/24 10:50 Completed PTT [Partial Thromboplastin Time] Stat Lab 03/27/24 10:50 Completed UA, C/S IF [Urinalysis, C/S if Indicated] Stat Lab 03/27/24 11:55 Completed Sodium Chloride 0.9% 1000 ml [Ns] 1,000 ml Med 03/27/24 12:12 Active IV 125 mls/hr Vital Signs Vital signs: Vital Signs Temperature 98.7 F 03/27/24 10:24 Pulse Rate 82 03/27/24 10:24 Respiratory Rate 19 03/27/24 10:24 Blood Pressure 145/61 H 03/27/24 10:24 Pulse Oximetry (%) 95 03/27/24 10:24 Oxygen Delivery Method Nasal Cannula 03/27/24 10:24 Oxygen Flow Rate 2 03/27/24 10:24 [facility] Patient data External records reviewed:: [facility] (I reviewed oncologist Dr. Lazaro consultation note from 02/17/2024) Clinical information provided by:: patient Social determinants that could affect healthcare access:: none Patient has the following chronic illnesses:: Laryngeal CA How is presenting disease/condition affected by chronic disease/condition?: exacerbated by Evaluation data The following diagnostics were reviewed and interpreted by me:: lab results and radiology exam(s) Lab and/or radiology exams considered but not ordered:: None Interpretation Summary: Ordering Physician: Efrain Anderson MD Date of Service: 03/27/24 Procedure(s): XR chest 1V portable Accession Number(s): [id number] cc: Demetri Jaramillo MD; Efrain Anderson MD~ Examination: AP chest single view TECHNIQUE: AP portable semiupright chest single view Exam date and time: March 27, 2024 and 58 hours Comparison February 09 2024 INDICATIONS: History laryngeal cancer undergoing radiation therapy, hypoxia requiring home oxygen, onset difficulty swallowing and drinking the last 2 days FINDINGS: Enlarged hilar regions Left hilar bibasilar pneumonia Tiny left apical pneumothorax, less than 5% Soft tissue air along left lateral thoracic wall Prominent osteopenia Right internal jugular Port-A-Cath satisfactory position IMPRESSION: Bilateral pneumonia Tiny left apical pneumothorax Extensive soft tissue air lateral chest wall on the left Dictated By: Demetri Jaramillo MD Signed By: <Electronically signed by Demetri Jaramillo MD in OV> 03/27/24 1107 Medications Medications considered but not ordered:: None Medication administrations:: Medication Administration History Sodium Chloride (Ns) 1,000 mls @ 125 mls/hr IV .Q8H ONE Stop: 03/27/24 20:11 Last Admin: 03/27/24 13:47 Dose: 125 mls/hr Documented By: AM See above Consultations Consultation(s) initiated? (list below): Yes Consultation #1 (Physician, Specialty, Details): I spoke with oncologist Dr. Marko Duran. Discussed patients HPI, ED course, exam findings and is requesting we consult with GI and admit to the hospitalist team. Time: 10:52 Consultation #2 (Physician, Specialty, Details): I spoke with GI Dr. Salas as noted above. Consultation #3 (Physician, Specialty, Details): I spoke with hospitalist Dr. Dodge as noted above. Diagnosis Differential Diagnosis ED Complaint MDM: Laryngeal cancer, adult failure to thrive, dehydration Most likely diagnosis given after review of the tests above:: Laryngeal cancer Adult failure to thrive Admission Indicated Admission indicated?: indicated Explain why admission is indicated or not indicated:: Further evaluation and treatment of laryngeal cancer Admission Request Was there a request for admission?: Yes Admission Attestation Admission request attestation: Discussed case with [] from Hospitalist service regarding admission. Discussed patients ED course, exam findings, labs, and radiology results. The Hospitalist [agrees,declines] to accept the patient for admission. Disposition Plan Disposition Plan: Admit Medical Decision Making MDM Narrative MDM Narrative: The patient was sent to the emergency department by Dr. Marko Duran, the radiation oncologist for having a G-tube feeding. The patient is unfortunate victim of the laryngeal cancer. She is undergoing radiation therapy as well as chemotherapy. The patient so far does not want any surgery done because he does not want to lose her voice. 10:55 AM, I spoke to Dr. Marko Duran directly on the phone. He is asking that the patient be admitted and for G-tube feeding insertion. The patient has lost about 20 pounds over the last 2 months. And the patient has not been able to eat or drink anything for the last 2 days. On exam the patient is alert awake oriented x 4 GCS of 15 and talking. No drooling. No trismus. No stridor. Throat examination is otherwise unremarkable. CBC normal. CMP unremarkable. BNP is slightly elevated. Chest x-ray interpreted by me: Remnant of the left lung malignant lesion is barely visible (this is also based on the history is obtained from the patient and family member regarding the left lung cancer). According to the radiologist there is a tiny left apical pneumothorax. Most likely secondary to the recent lung biopsy. But it is not big enough to warrant a chest tube insertion. Heart normal. Mediastinum normal. I do not see any pneumonia. 1:50 PM, I spoke to and discussed with Dr. Salas, GI specialist on-call. He agreed to consult. He said he will do the G-tube insertion in the morning. 2 PM, I spoke to and discussed with Dr. Dodge, hospitalist on-call. She agreed to assess the patient for admission. Differential Diagnosis Differential Diagnosis: Laryngeal cancer, adult failure to thrive, dehydration Lab Data 03/27/24 10:50 03/27/24 10:50 Labs: Lab Results 03/27/24 03/27/24 Range/Units 10:50 11:55 WBC 8.4 (3.6-11.0) Thou/mm3 RBC 3.67 L (4.00-5.20) Miln/mm3 Hgb 9.7 L (12.0-16.0) g/dL Hct 30.8 L (36.0-46.0) % MCV 84 (80-100) fL MCH 26.4 (25.0-35.0) pg MCHC 31.5 (31.0-37.0) g/dl RDW Std Deviation 42.6 (36.4-46.3) fL Plt Count 288 (140-440) Thou/mm3 Neut % (Auto) 68 (37-80) % Lymph % (Auto) 22 (10-50) % [place] % (Auto) 9 (0-12) % Eos % (Auto) 1 (0-10) % Baso % (Auto) 1 (0-2.5) % Neut # (Auto) 5.7 (1.8-7.7) Thou/mm3 Lymph # (Auto) 1.8 (1.0-4.8) Thou/mm3 [place] # (Auto) 0.7 (0.0-0.8) Thou/mm3 Eos # (Auto) 0.1 (0.0-0.5) Thou/mm3 Baso # (Auto) 0.1 (0.0-0.2) Thou/mm3 Immature Gran # (Auto) 0.04 H (0.00-0.00) Thou/mm3 Absolute Nucleated RBC 0.00 (0.00-0.00) Thou/mm3 Immature Gran % 1 H (0-0) % Nucleated RBC % 0 (0) /100 WBC PT 11.4 (9.0-12.2) Seconds INR 1.0 (0.9-1.3) APTT 26.7 (22.0-36.0) Seconds Sodium 142 (136-145) mMol/L Potassium 4.0 (3.4-5.1) mMol/L Chloride 106 (98-107) mMol/L Carbon Dioxide 31.5 H (20.0-31.0) mMol/L Anion Gap 5 L (7-16) BUN 18 (9-23) mg/dL Creatinine 0.7 (0.6-1.3) mg/dL Estim Creat Clear Calc Not Performed. eGFR > 60 (60 - ) See Note BUN/Creatinine Ratio 26 H (12-20) Ratio Glucose 156 H (74-106) mg/dL Calculated Osmolality 288 (275-295) Calcium 8.9 (8.3-10.6) mg/dL Corrected Calcium 9.5 (8.5-10.1) mg/dL Total Bilirubin 0.2 L (0.3-1.2) mg/dL AST < 8 (0-34) U/L ALT < 7 L (10-49) U/L Alkaline Phosphatase 74 (46-116) U/L B-Natriuretic Peptide 241 H (0-100) pg/mL Total Protein 6.3 (5.7-8.2) gm/dL Albumin 3.3 L (3.4-4.8) gm/dL Globulin 3.0 (2.3-3.5) gm/dL Albumin/Globulin Ratio 1.1 L (1.2-2.2) Ur Collection Type Clean Catch Urine Color Yellow (Lt Yel-Yel) Urine Clarity Clear (Clear/Hazy) Urine pH 6.0 (5.0-7.0) Ur Specific [place] 1.027 (1.001-1.035) Urine Protein 3+ A (Neg - Trace) Urine Glucose (UA) Trace (Negative) Urine Ketones Trace (Negative) Urine Blood 2+ A (Negative) Urine Nitrite Negative (Negative) Urine Bilirubin Negative (Negative) Urine Urobilinogen (Auto) 2.0 (0.0-1.0) mg/dL Ur Leukocyte Esterase Positive (Negative) Urine RBC 10 H (0-3) /hpf Urine WBC 6 H (0-5) /hpf Ur Squamous Epith Cells 4 (0-5) /hpf Urine Bacteria None (None) Hyaline Casts < 1 (0-1) /hpf Urine Sperm Present A (None) Ur Culture Indicated? Not Indicated Discharge Plan Plan Patient Disposition: Admit Acute Care w/in Hospital Disposition Comment: Stable for admit Prescriptions/Referrals Prescriptions/Med Rec: No Action hydrocodone-acetaminophen 5-325 mg Tablet 1 tab PO Q6H PRN (Reason: Pain) furosemide 20 mg Tablet 20 mg PO BID Referrals: No Primary/Family,Physician [Primary Care Provider] - In 1 week Problem List Clinical Impression: Laryngeal cancer, Adult failure to thrive Patient/Caregiver Discharge Instructions Print Language: Guamanian Stand Alone Forms: Miya Award Info., Patient Portal Info Letter
[2024-03-27 10:24] VITALS: BP 145/61; PULSE 82; RESP 19; TEMP 37.1; O2SAT 95
--- NOTE | 2024-03-27 10:32 | PC.NURSE ---
Dr Joanie Anderson at bedside, talking with pt and her . Pt placed on 2 Lnc for de sat to 87%. PT CURRENTLY AT 96 % ON 2 L
[2024-03-27 10:38] VITALS: BP 145/61; PULSE 82; RESP 14; O2SAT 99
--- NOTE | 2024-03-27 10:48 | XR_ITS ---
Examination: AP chest single view TECHNIQUE: AP portable semiupright chest single view Exam date and time: March 27, 2024 and 58 hours Comparison February 09 2024 INDICATIONS: History laryngeal cancer undergoing radiation therapy, hypoxia requiring home oxygen, onset difficulty swallowing and drinking the last 2 days FINDINGS: Enlarged hilar regions Left hilar bibasilar pneumonia Tiny left apical pneumothorax, less than 5% Soft tissue air along left lateral thoracic wall Prominent osteopenia Right internal jugular Port-A-Cath satisfactory position IMPRESSION: Bilateral pneumonia Tiny left apical pneumothorax Extensive soft tissue air lateral chest wall on the left
[2024-03-27 11:15] LABS: Basophils # (Auto) 0.1 Thou/mm3 (0.0-0.2); Basophils % (Auto) 1 % (0-2.5); Eosinophils # (Auto) 0.1 Thou/mm3 (0.0-0.5); Eosinophils % (Auto) 1 % (0-10); Hematocrit 30.8 % (36.0-46.0); Hemoglobin 9.7 g/dL (12.0-16.0); Immature Granulocytes % (Auto) 1 % (0-0); Immature Granulocytes Auto 0.04 Thou/mm3 (0.00-0.00); Lymphocytes # (Auto) 1.8 Thou/mm3 (1.0-4.8); Lymphocytes % (Auto) 22 % (10-50); Mean Corpuscular HGB Conc 31.5 g/dl (31.0-37.0); Mean Corpuscular Hemoglobin 26.4 pg (25.0-35.0); Mean Corpuscular Volume 84 fL (80-100); Monocytes # (Auto) 0.7 Thou/mm3 (0.0-0.8); Monocytes % (Auto) 9 % (0-12); Neutrophils # (Auto) 5.7 Thou/mm3 (1.8-7.7); Neutrophils % (Auto) 68 % (37-80); Nucleated Red Blood Cell % 0 /100 WBC (0); Platelet Count 288 Thou/mm3 (140-440); RDW Standard Deviation 42.6 fL (36.4-46.3); Red Blood Count 3.67 Miln/mm3 (4.00-5.20); White Blood Count 8.4 Thou/mm3 (3.6-11.0)
[2024-03-27 11:26] LABS: Partial Thromboplastin Time 26.7 Seconds (22.0-36.0); Prothrombin Time 11.4 Seconds (9.0-12.2)
[2024-03-27 11:31] LABS: B-Type Natriuretic Peptide 241 pg/mL (0-100)
[2024-03-27 11:32] LABS: Alanine Aminotransferase < 7 U/L (10-49); Albumin, Serum 3.3 gm/dL (3.4-4.8); Albumin/Globulin Ratio 1.1 (1.2-2.2); Alkaline Phosphatase 74 U/L (46-116); Anion Gap 5 (7-16); Aspartate Amino Transferase < 8 U/L (0-34); BUN/Creatinine Ratio 26 Ratio (12-20); Bilirubin,Total 0.2 mg/dL (0.3-1.2); Blood Urea Nitrogen 18 mg/dL (9-23); Calcium 8.9 mg/dL (8.3-10.6); Calcium (Corrected) 9.5 mg/dL (8.5-10.1); Carbon Dioxide 31.5 mMol/L (20.0-31.0); Chloride 106 mMol/L (98-107); Creatinine (Component) 0.7 mg/dL (0.6-1.3); Glucose 156 mg/dL (74-106); Osmolality,Calculated 288 (275-295); Sodium 142 mMol/L (136-145); Total Protein 6.3 gm/dL (5.7-8.2); eGFR > 60 See Note
[2024-03-27 12:02] LABS: Collection Type, Urine Clean Catch
[2024-03-27 12:14] LABS: Bilirubin,Urine Negative (Negative); Blood,Urine 2+ (Negative); Clarity,Urine Clear (Clear/Hazy); Color,Urine Yellow (Lt Yel-Yel); Culture Indicated,Urine Not Indicated; Glucose, Urine Trace (Negative); Hyaline Casts,Urine < 1 /hpf (0-1); Ketones,Urine Trace (Negative); Leukocyte Esterase,Urine Positive (Negative); Nitrite,Urine Negative (Negative); Protein,Urine 3+ (Neg - Trace); RBC,Urine 10 /hpf (0-3); Specific Gravity,Urine 1.027 (1.001-1.035); Squamous Epithelial Cell,Urine 4 /hpf (0-5); WBC,Urine 6 /hpf (0-5)
[2024-03-27 12:16] LABS: Sperm,Urine Present
[2024-03-27 12:45] VITALS: BP 147/69; PULSE 83; RESP 18; TEMP 37.1; O2SAT 94
[2024-03-27] MEDS: SODIUM CHLORIDE 0.9% 1000 ML 1,000 ML 125 ML IV (13:47)
--- NOTE | 2024-03-27 14:33 | ESHP_ITS ---
Documentation for date of: 03/27/24 HPI History of Present Illness Chief complaint: Poor po intake History of present illness: 74-year-old female current active smoker with past medical history of diabetes CKD stage IV, laryngeal cancer currently undergoing radiation therapy Wednesday through Wednesday, seen by Dr. Duran was sent here from the cancer treatment center due to poor oral intake. Patient states that for the past 5 months has been unable to tolerate solids or liquids, states she sometimes spits up blood and is even hard to talk sometimes. Today saw Dr. Duran at the cancer treatment center he recommended patient to have PEG tube placed due to poor oral intake and deficient nutritional status. Patient has lost about approximately 30 pounds in the last 5 months. At this time patient denies any fever, chills, shortness of breath, chest pain, nausea, vomiting, abdominal pain, urinary symptoms. ED course: Vitals on arrival show some hypertension, saturating 94% on 3 L nasal cannula, labs significant for hemoglobin 9.7, HCO3 31.5, glucose 156, T. bili 0.2, BNP 241, albumin 3.3, UA shows 3+ protein, 2+ blood 10 RBCs, 6 WBCs, sperm present in UA. Chest x-ray shows Bilateral pneumonia, Tiny left apical pneumothorax. Extensive soft tissue air lateral chest wall on the left PMHx: Diabetes, CKD stage IV, laryngeal cancer SxHx: Hysterectomy, cholecystectomy, Mediport placement Social Hx: Current active smoker 1 pack/day, denies alcohol use, denies any illicit substances including THC FHx: Unknown Review of Systems Review of Systems Narrative Review of Systems: Narrative ROS GENERAL: Denies fevers/chills or diaphoresis. HEENT: Denies headache or visual/hearing changes. Denies nasal discharge. NEURO: Denies unusual weakness or difficulty speaking. CARDIO: Denies chest pain or palpitations. PULM: Denies SOB, coughing, or wheezing. GI: Denies abdominal pain, N/V/C/D/reflux/gas, bright red blood per rectum or melena. Reports having BMs. URO: Denies burning/itching/pain/urinary changes. [employer]: Denies menstrual changes, hot flashes. MSK/EXT/SKIN: Denies joint/skeletal/muscle pain, issues/changes in upper or lower extremities, itchiness, or superficial pain. PSYCH: Cooperative, pleasant mood & affect. The rest of the review of systems is otherwise negative. Exam Vital Signs Temp Pulse Resp BP Pulse Ox O2 Del Method O2 Flow Rate 98.8 F 83 18 147/69 H 94 L Nasal Cannula 3 03/27/24 12:45 03/27/24 12:45 03/27/24 12:45 03/27/24 12:45 03/27/24 12:45 03/27/24 12:45 03/27/24 12:45 Narrative Exam Physical Exam GENERAL: NAD, AAOx3, frail HEENT: dry mucosa. Eyes open, symmetrical, & clear, right medport, crepitus on left side CARDIO: Heart RRR, no obvious murmurs PULM: No noted coughing/dyspnea CTA B/L, no R/W/R GI: Abdomen soft, nondistended, no pain on palpation. BSx4 SKIN/MSK/EXT: No wounds/rashes/edema/amputations, no pain on palpation. Pedal pulses present B/L NEURO: AAOx3, no focal neuro deficits, able to move all 4 extremities Results: Labs 03/29/24 04:40 03/29/24 04:40 Labs: Short CBC 03/27/24 Range/Units 10:50 WBC 8.4 (3.6-11.0) Thou/mm3 Hgb 9.7 L (12.0-16.0) g/dL Hct 30.8 L (36.0-46.0) % Plt Count 288 (140-440) Thou/mm3 BMP 03/27/24 10:50 Sodium 142 Potassium 4.0 Chloride 106 Carbon Dioxide 31.5 H BUN 18 Creatinine 0.7 Glucose 156 H Calcium 8.9 Liver Function 03/27/24 Range/Units 10:50 Total Bilirubin 0.2 L (0.3-1.2) mg/dL AST < 8 (0-34) U/L ALT < 7 L (10-49) U/L Alkaline Phosphatase 74 (46-116) U/L Albumin 3.3 L (3.4-4.8) gm/dL Urine 03/27/24 Range/Units 11:55 Urine Color Yellow (Lt Yel-Yel) Urine Clarity Clear (Clear/Hazy) Urine pH 6.0 (5.0-7.0) Ur Specific [place] 1.027 (1.001-1.035) Urine Protein 3+ A (Neg - Trace) Urine Glucose (UA) Trace (Negative) Quality Measures Quality Measures none Advance care planning discussed with:: patient and spouse Medications Home Medications and Allergies Home Medications ?Medication ?Instructions ?Recorded ?Confirmed ?Type furosemide 20 mg tablet 20 mg PO BID 01/13/24 03/23/24 History hydrocodone 5 mg-acetaminophen 325 1 tab PO Q6H PRN Pain 01/13/24 03/23/24 History mg tablet Allergies Allergy/AdvReac Type Severity Reaction Status Date / Time No Known Allergies Allergy Verified 03/27/24 10:10 Visit Medications Acetaminophen (Acetaminophen 325 Mg Tablet) 650 mg PO Q6H PRN PRN Reason: Fever >100.5 Stop: 04/26/24 14:29 Acetaminophen (Acetaminophen 325 Mg Tablet) 650 mg PO Q6H PRN PRN Reason: PAIN SCALE 1-3 (mild Stop: 04/26/24 14:29 Docusate Sodium (Docusate Sod 100 Mg Capsule) 100 mg PO QDAY XENIA; Protocol Stop: 04/27/24 08:59 Heparin Sodium (Porcine) (Heparin Sod Inj 5000 Unit/Ml Vial) 5,000 unit SC Q8HR XENIA Stop: 04/10/24 21:59 Sodium Chloride (Ns) 1,000 mls @ 125 mls/hr IV .Q8H ONE Stop: 03/27/24 20:11 Last Admin: 03/27/24 13:47 Dose: 125 mls/hr Ondansetron HCl (Ondansetron Inj 2 Mg/Ml Inj 2 Ml) 4 mg IV Q6H PRN; Protocol PRN Reason: NAUSEA OR VOMITING Stop: 04/26/24 14:29 Assessment & Plan Plan 74-year-old female current active smoker with past medical history of diabetes CKD stage IV, laryngeal cancer currently undergoing radiation therapy Wednesday through Wednesday, seen by Dr. Duran was sent here from the cancer treatment center due to poor oral intake. Dr. Salas consulted for possible PEG tube placement #Failure to thrive #Poor oral intake #History of laryngeal cancer Patient has laryngeal cancer currently undergoing radiation therapy Wednesday through Wednesday is seen by Dr. Emanuel carson [facility] For the past 5 months patient unable to tolerate p.o. including solids and liquids states whenever she attempts to consume anything orally will start coughing blood Dr. Duran recommended patient to come to the ED for possible PEG tube placement GI was consulted for possible PEG tube placement -On IV fluids -Possible PEG tube placement -GI Dr. Salas consulted, patient recommendations -Dr. Duran, radiation oncology consulted, appreciate recommendations #Diabetes mellitus -SSI -Hypoglycemia protocol in place #CKD stage IV Per patient she has chronic kidney disease Current EGFR more than 60 -Monitor at this time Case discussed with my senior Dr. Brown PGY-[address] Echo Abdullahi MD PGY-1 Disposition: MedSurg Fluids: NS Feeding: N.p.o. Thrombo prophylaxis: Heparin Gastric Ulcer prophylaxis: None CODE STATUS: Full code Senior resident attestation: Patient evaluated and examined at the bedside, plan of care discussed with rest of the team including my attending physician, except as noted. Stephanie PGY2 Attending Provider Attestation/Addendum IRamandeep, , attest that I was physically present for the chowdh[place] portions of the service and evaluated the patient with the resident and I reviewed and discussed the case with the resident and agree with the resident's findings and plans of care as documented above Patient is a 74-year-old female with past medical history of current tobacco use of over 30 years, CKD stage IV, laryngeal cancer who was sent by her radiation oncologist to the ED due to poor oral intake. Patient states that she has been unable to eat for the past 5 months. She is able to drink little bits of water, but when she tries to eat she spits up blood. Patient has since lost about 30 pounds. Patient is agreeable to PEG tube due to poor p.o. intake. GI was consulted from ED. Will admit patient to med/surge for failure to thrive and placement of PEG tube. Will give IV fluids and nicotine patch. It is noted that patient had a lung biopsy on 23 March. Chest x-ray today shows a tiny left apical pneumothorax with subcutaneous emphysema in the left chest. Patient states she uses 2 L O2 at home as needed. Patient is currently on 3 L nasal cannula. She states that she has a chronic cough due to her smoking. She denies any productive sputum at this time. Patient does not clinically appear to have any signs of pneumonia.
[2024-03-27 17:58] VITALS: BMI 20.1
[2024-03-27] MEDS: HYDROcodone/APAP 5/325 TABLET 1 TAB PO (18:13)
[2024-03-27 20:00] VITALS: BP 148/60; PULSE 80; RESP 18; TEMP 36.2; O2SAT 92
--- NOTE | 2024-03-27 20:41 | ESCONSULT_ITS ---
HPI Data of Consult Requesting Physician: Ramandeep Dodge DO Primary Care Provider: Physician No Primary/Family Consult Narrative Reason for consult: Dysphagia History of present illness: 74 years old female sent by her oncologist to the emergency room for progressive dysphagia in the setting of laryngeal carcinoma undergoing radiation chemotherapy cc:: cc: Ramandeep Dodge DO Review of Systems Review of Systems Systems Reviewed: All systems reviewed, normal except as documented Past Medical History Surgical History OTHER SURGICAL HX: As in the history of present illness Meds Home Medications and Allergies Home Medications ?Medication ?Instructions ?Recorded ?Confirmed ?Type furosemide 20 mg tablet 20 mg PO BID 01/13/24 03/23/24 History hydrocodone 5 mg-acetaminophen 325 1 tab PO Q6H PRN Pain 01/13/24 03/23/24 History mg tablet Allergies Allergy/AdvReac Type Severity Reaction Status Date / Time No Known Allergies Allergy Verified 03/27/24 10:10 Exam Vital Signs Temp Pulse Resp BP Pulse Ox O2 Del Method O2 Flow Rate 98.8 F 83 18 147/69 H 94 L Nasal Cannula 3 03/27/24 12:45 03/27/24 12:45 03/27/24 12:45 03/27/24 12:45 03/27/24 12:45 03/27/24 12:45 03/27/24 12:45 Constitutional Comments: Chronically sick appearing Routine Respiratory Exam Comments: Normal to auscultation Routine Abdominal Exam Comments: Soft nontender Results Labs 03/27/24 10:50 03/27/24 10:50 Labs: Short CBC 03/27/24 Range/Units 10:50 WBC 8.4 (3.6-11.0) Thou/mm3 Hgb 9.7 L (12.0-16.0) g/dL Hct 30.8 L (36.0-46.0) % Plt Count 288 (140-440) Thou/mm3 BMP 03/27/24 10:50 Sodium 142 Potassium 4.0 Chloride 106 Carbon Dioxide 31.5 H BUN 18 Creatinine 0.7 Glucose 156 H Calcium 8.9 Liver Function 03/27/24 Range/Units 10:50 Total Bilirubin 0.2 L (0.3-1.2) mg/dL AST < 8 (0-34) U/L ALT < 7 L (10-49) U/L Alkaline Phosphatase 74 (46-116) U/L Albumin 3.3 L (3.4-4.8) gm/dL Urine 03/27/24 Range/Units 11:55 Urine Color Yellow (Lt Yel-Yel) Urine Clarity Clear (Clear/Hazy) Urine pH 6.0 (5.0-7.0) Ur Specific [place] 1.027 (1.001-1.035) Urine Protein 3+ A (Neg - Trace) Urine Glucose (UA) Trace (Negative) Assessment and Plan Additional Assessment & Plan Additional Plan: # Failure to thrive in the setting of laryngeal carcinoma undergoing radiation therapy leading to progressive dysphagia Plan Consent obtained for PEG tube insertion via fiberoptic esophagogastroduodenoscopy under intravenous moderate sedation and procedure scheduled for tomorrow I was going to do the procedure today but she was given a liquid diet and she ate an hour ago not very much as she can only swallow the Jell-O Thank you very much for the opportunity to participate in the care of this patient
[2024-03-27] MEDS: ceFAZolin 1 GM in SODIUM CHLORIDE 0.9% 100 ML IV (22:19)
[2024-03-27] MEDS: HEPARIN SOD INJ 5000 UNIT/ML VIAL SC (22:21)
[2024-03-28] VITALS (8 sets, daily range): BP systolic 135–158; BP diastolic 60–85; PULSE 69–118; RESP 16–20; TEMP 36–36.8; O2SAT 95–98; BMI 20.2
--- NOTE | 2024-03-28 | XR_ITS ---
Examination: MRI lumbar spine without contrast TECHNIQUE: Axial sagittal coronal brain MRI images post intravenous ministration 9 cc gadolinium INDICATIONS: Lung carcinoma diagnosis, dizziness confusion this month, clinical diagnosis brain metastases Exam date and time: March 28, 2024 1455 hours FINDINGS: Ventricles are normal in size and configuration. No mass effect upon the ventricular system No effacement cortical sulcal markings No abnormal enhancing cerebellar or cerebral lesions Pituitary is not enlarged No cerebellar tonsillar herniation IMPRESSION: No abnormal enhancing cerebellar or cerebral lesions
[2024-03-28] MEDS: SODIUM CHLORIDE 0.9% 1000 ML 1,000 ML 100 ML IV ×2 (00:15→10:21)
[2024-03-28] MEDS: HEPARIN SOD INJ 5000 UNIT/ML VIAL SC (05:39)
[2024-03-28 06:09] LABS: Basophils % (Auto) 1 % (0-2.5); Eosinophils # (Auto) 0.1 Thou/mm3 (0.0-0.5); Eosinophils % (Auto) 2 % (0-10); Hematocrit 33.9 % (36.0-46.0); Hemoglobin 10.2 g/dL (12.0-16.0); Immature Granulocytes % (Auto) 0 % (0-0); Immature Granulocytes Auto 0.03 Thou/mm3 (0.00-0.00); Lymphocytes # (Auto) 1.6 Thou/mm3 (1.0-4.8); Lymphocytes % (Auto) 23 % (10-50); Mean Corpuscular HGB Conc 30.1 g/dl (31.0-37.0); Mean Corpuscular Hemoglobin 26.2 pg (25.0-35.0); Mean Corpuscular Volume 87 fL (80-100); Monocytes # (Auto) 0.6 Thou/mm3 (0.0-0.8); Monocytes % (Auto) 9 % (0-12); Neutrophils # (Auto) 4.6 Thou/mm3 (1.8-7.7); Neutrophils % (Auto) 65 % (37-80); Nucleated Red Blood Cell % 0 /100 WBC (0); Platelet Count 322 Thou/mm3 (140-440); RDW Standard Deviation 45.1 fL (36.4-46.3)
--- NOTE | 2024-03-28 06:39 | ESCONSULT_ITS ---
HPI Data of Consult Requesting Physician: Ramandeep Dodge DO Primary Care Provider: Physician No Primary/Family Consult Narrative Reason for consult: Laryngeal lung CA with dysphagia. 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 She has begun her treatments to the larynx 2 weeks ago with chemo that was just started yesterday but had progressive difficulty swallowing. Chest x-ray in emergency room showed left hilar bibasilar pneumonia enlarged hilar regions soft tissue air along left lateral thoracic wall. a.m. labs WBC 7.0 hemoglobin 10[id number] Salas has already evaluated patient and is planning endoscopy with G-tube placement today. cc:: cc: Ramandeep Dodge DO Past Medical History Social History SOCIAL: Has significant smoking history; denies drug abuse Past Medical History Comments PMH COMMENT: Prior CVA [place] diabetes gallbladder stones Meds Home Medications and Allergies Home Medications ?Medication ?Instructions ?Recorded ?Confirmed ?Type furosemide 20 mg tablet 20 mg PO BID 01/13/24 03/23/24 History hydrocodone 5 mg-acetaminophen 325 1 tab PO Q6H PRN Pain 01/13/24 03/23/24 History mg tablet Allergies Allergy/AdvReac Type Severity Reaction Status Date / Time No Known Allergies Allergy Verified 03/27/24 10:10 Exam Vital Signs Temp Pulse Resp BP Pulse Ox O2 Del Method O2 Flow Rate 98.3 F 75 18 135/69 H 96 Nasal Cannula 3 03/28/24 04:00 03/28/24 04:00 03/28/24 04:00 03/28/24 04:00 03/28/24 04:00 03/28/24 04:00 03/28/24 04:00 Narrative Exam Appearing comfortable this a.m. Response to questions Results Labs 03/28/24 04:50 03/28/24 04:50 Labs: Short CBC 03/27/24 03/28/24 Range/Units 10:50 04:50 WBC 8.4 7.0 (3.6-11.0) Thou/mm3 Hgb 9.7 L 10.2 L (12.0-16.0) g/dL Hct 30.8 L 33.9 L (36.0-46.0) % Plt Count 288 322 D (140-440) Thou/mm3 BMP 03/27/24 10:50 Sodium 142 Potassium 4.0 Chloride 106 Carbon Dioxide 31.5 H BUN 18 Creatinine 0.7 Glucose 156 H Calcium 8.9 Liver Function 03/27/24 Range/Units 10:50 Total Bilirubin 0.2 L (0.3-1.2) mg/dL AST < 8 (0-34) U/L ALT < 7 L (10-49) U/L Alkaline Phosphatase 74 (46-116) U/L Albumin 3.3 L (3.4-4.8) gm/dL Urine 03/27/24 Range/Units 11:55 Urine Color Yellow (Lt Yel-Yel) Urine Clarity Clear (Clear/Hazy) Urine pH 6.0 (5.0-7.0) Ur Specific [place] 1.027 (1.001-1.035) Urine Protein 3+ A (Neg - Trace) Urine Glucose (UA) Trace (Negative) Assessment and Plan Additional Assessment & Plan Additional Plan: 1. 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 2. Has begun treatments with chemoradiation with swallowing difficulties. 3. Bilateral pneumonia. Receiving antibiotics 4. Dr. Salas's for endoscopy and PEG tube insertion.
[2024-03-28 06:57] LABS: Alanine Aminotransferase < 7 U/L (10-49); Albumin, Serum 3.4 gm/dL (3.4-4.8); Albumin/Globulin Ratio 1.1 (1.2-2.2); Alkaline Phosphatase 76 U/L (46-116); Anion Gap 6 (7-16); Aspartate Amino Transferase < 10 U/L (0-34); BUN/Creatinine Ratio 23 Ratio (12-20); Bilirubin,Total 0.2 mg/dL (0.3-1.2); Blood Urea Nitrogen 16 mg/dL (9-23); Calcium 8.6 mg/dL (8.3-10.6); Calcium (Corrected) 9.1 mg/dL (8.5-10.1); Carbon Dioxide 28.8 mMol/L (20.0-31.0); Chloride 108 mMol/L (98-107); Creatinine (Component) 0.7 mg/dL (0.6-1.3); Estimated Creatinine Clearance 54.7 mL/min (>60); Glucose 159 mg/dL (74-106); Osmolality,Calculated 289 (275-295); Sodium 143 mMol/L (136-145); Thyroid Stimulating Hormone 0.57 uIU/mL (0.55-4.78); Total Protein 6.4 gm/dL (5.7-8.2); eGFR > 60 See Note
--- NOTE | 2024-03-28 09:59 | PC.SS ---
Addendum entered by MURPHY Mitchell 03/28/24 10:06: SS follow up: patient granddaughter informs patient's PCP is Dr. Linda Mendosa at [facility] in [place]. No preferred home health agency identified at this time. Original Note: Initial assessment: This is 74 year old female admitted for poor oral intake. Patient appeared alert and oriented. Patient was able to confirm demographic information. Patient states she lives at home with her grandchildren. Patient assigned her grand daughterAlbertina as her emergency contact. Patient informs she is typically independent with ADL's. Patient informs she has a walker and cane at home if needed. Patient also informs she has home oxygen with 2L at [facility]. Patient states she does not recall who her PCP is. Patient plans to return home upon discharge, with family transporting home. D/c plan: Home Next of kin: grand daughterAlbertina
--- NOTE | 2024-03-28 10:17 | PC.SS ---
SS update: patient pending PEG tube.
--- NOTE | 2024-03-28 10:24 | PC.DIETICIAN ---
Jevity 1.5 at 20 ml/hr via PEG tube by pump. Advance 10 ml every 8 hrs to goal rate of 40 ml/hr x 24 hrs. If no IV fluids, water flushes of 25 ml/hr (or per MD) . Provides: 1440 kcal, 61 g prot, 729 ml free water, 960 ml total volume.
[2024-03-28] MEDS: INSULIN LISPRO (AdmeLOG) 1 UNIT/0.01 ML UNIT SC (11:51)
--- NOTE | 2024-03-28 12:14 | ESPR_ITS ---
Documentation for date of: 03/28/24 Senior resident attestation: The patient is a 74-year-old female with a past medical history of laryngeal carcinoma, small cell lung carcinoma, who presented with progressive dysphagia for the past 5 months reported weight loss ongoing for the past 5 months unable to swallow, also concern for aspiration, recently started chemotherapy but has progressive difficulty swallowing. Who came into the emergency room with complaints of dysphagia, patient was admitted to medical floor, gastroenterology evaluated the patient, plan for PEG tube placement. #COPD exacerbation?continue azithromycin, DuoNebs, supplemental O2 as needed #Diabetes mellitus?sliding scale insulin #Dysphagia?pending PEG tube placement by telecommunications technician Dr. Salas, n.p.o. at midnight. Patient evaluated and examined at the bedside, plan of care discussed with rest of the team including my attending physician, except as noted. Quresh PGY2 Subjective Subjective Interval history: Patient seen today at the bedside fine awake, alert, oriented x 3. No overnight events reported. Vital signs stable at this time. Labs unremarkable at this time. Patient is scheduled to have PEG tube procedure today n.p.o. order already placed. On examination some mild bilateral wheezes were heard started patient on DuoNebs and azithromycin, as patient has significant smoking history likely undiagnosed COPD. Exam Vital Signs Temp Pulse Resp BP Pulse Ox O2 Del Method O2 Flow Rate 97.3 F 88 18 137/67 H 96 Nasal Cannula 2 03/28/24 11:44 03/28/24 11:44 03/28/24 11:44 03/28/24 11:44 03/28/24 11:44 03/28/24 11:44 03/28/24 11:44 Narrative Exam Physical Exam GENERAL: NAD, AAOx3, frail HEENT: dry mucosa. Eyes open, symmetrical, & clear, right medport, crepitus on left side CARDIO: Heart RRR, no obvious murmurs PULM: No noted coughing/dyspnea, bilateral wheezing GI: Abdomen soft, nondistended, no pain on palpation. BSx4 SKIN/MSK/EXT: No wounds/rashes/edema/amputations, no pain on palpation. Pedal pulses present B/L NEURO: AAOx3, no focal neuro deficits, able to move all 4 extremities Objective Labs 03/29/24 04:40 03/29/24 04:40 Labs: Laboratory Results - last 24 hr 03/27/24 03/28/24 11:55 04:50 WBC 7.0 RBC 3.90 L Hgb 10.2 L Hct 33.9 L MCV 87 MCH 26.2 MCHC 30.1 L RDW Std Deviation 45.1 Plt Count 322 D Neut % (Auto) 65 Lymph % (Auto) 23 [place] % (Auto) 9 Eos % (Auto) 2 Baso % (Auto) 1 Neut # (Auto) 4.6 Lymph # (Auto) 1.6 [place] # (Auto) 0.6 Eos # (Auto) 0.1 Baso # (Auto) 0.0 Immature Gran # (Auto) 0.03 H Absolute Nucleated RBC 0.00 Immature Gran % 0 Nucleated RBC % 0 Sodium 143 Potassium 4.0 Chloride 108 H Carbon Dioxide 28.8 Anion Gap 6 L BUN 16 Creatinine 0.7 Estim Creat Clear Calc 54.7 L eGFR > 60 BUN/Creatinine Ratio 23 H Glucose 159 H Calculated Osmolality 289 Calcium 8.6 Corrected Calcium 9.1 Magnesium 2.0 Total Bilirubin 0.2 L AST < 10 ALT < 7 L Alkaline Phosphatase 76 Total Protein 6.4 Albumin 3.4 Globulin 3.0 Albumin/Globulin Ratio 1.1 L TSH 0.57 Ur Collection Type Clean Catch Urine Color Yellow Urine Clarity Clear Urine pH 6.0 Ur Specific [place] 1.027 Urine Protein 3+ A Urine Glucose (UA) Trace Urine Ketones Trace Urine Blood 2+ A Urine Nitrite Negative Urine Bilirubin Negative Urine Urobilinogen (Auto) 2.0 Ur Leukocyte Esterase Positive Urine RBC 10 H Urine WBC 6 H Ur Squamous Epith Cells 4 Urine Bacteria None Hyaline Casts < 1 Urine Sperm Present A Ur Culture Indicated? Not Indicated Quality Measures Quality Measures none Advance care planning discussed with:: patient Assessment & Plan Assessment Current Active Medications: Generic Name Dose Route Start Last Admin Trade Name Freq PRN Reason Stop Dose Admin Acetaminophen 650 mg 03/27/24 14:30 Acetaminophen 325 Mg Tablet PO 04/26/24 14:29 Q6H PRN Fever >100.5 Acetaminophen 650 mg 03/27/24 14:30 Acetaminophen 325 Mg Tablet PO 04/26/24 14:29 Q6H PRN PAIN SCALE 1-3 (mild Hydrocodone Bitart/Acetaminophen 1 tab 03/27/24 15:53 03/27/24 18:13 Hydrocodone/Apap 5/325 Tablet PO 04/01/24 15:52 1 tab Q6HR PRN Administration PAIN SCALE 4-10(Mod-Sev Albuterol/Ipratropium 3 ml 03/28/24 13:00 Albuterol/Ipratropium (Duoneb) Rt Regla 3 Ml Nebu INH 04/27/24 12:59 Q6HRRT XENIA Dextrose 25 ml 03/27/24 14:45 Dextrose 50%-Water Inj 50 Ml Syringe IV 04/26/24 14:44 Q15MIN PRN BG 50-70 responsive npo pt Dextrose 50 ml 03/27/24 14:45 Dextrose 50%-Water Inj 50 Ml Syringe IV 04/26/24 14:44 Q15MIN PRN BG <50 OR BG <70 & pt unresponsive Docusate Sodium 100 mg 03/28/24 09:00 03/28/24 09:28 Docusate Sod 100 Mg Capsule PO 04/27/24 08:59 Not Given QDAY [facility] Protocol Glucagon 1 mg 03/27/24 14:45 Glucagon Inj 1 Mg Vial IM Q15MIN PRN BG <70, and no IV access Heparin Sodium (Porcine) 5,000 unit 03/27/24 22:00 03/28/24 05:39 Heparin Sod Inj 5000 Unit/Ml Vial SC 04/10/24 21:59 5,000 unit Q8HR XENIA Administration Sodium Chloride 1,000 mls @ 100 mls/hr 03/27/24 15:01 03/28/24 10:21 Ns IV 04/26/24 15:00 100 mls/hr .Q10H XENIA Administration Azithromycin 500 mg/ Sodium 250 mls @ 250 mls/hr 03/28/24 11:51 Chloride IV 04/04/24 11:50 QDAY XENIA Insulin Human Lispro 0 unit 03/27/24 17:00 03/28/24 11:51 Insulin Lispro (Admelog) 1 Unit/0.01 Ml Unit SC 04/26/24 16:59 2 unit AC XENIA Administration Protocol Ondansetron HCl 4 mg 03/27/24 14:30 Ondansetron Inj 2 Mg/Ml Inj 2 Ml IV 04/26/24 14:29 Q6H PRN NAUSEA OR VOMITING Protocol Sennosides 1 tab 03/27/24 15:00 03/28/24 09:28 Senna Tablet PO 04/26/24 14:59 Not Given QDAY [facility] Protocol Plan 74-year-old female current active smoker with past medical history of diabetes CKD stage IV, laryngeal cancer currently undergoing radiation therapy Wednesday through Wednesday, seen by Dr. Duran was sent here from the cancer treatment center due to poor oral intake. Dr. Salas consulted for possible PEG tube placement #Failure to thrive #Poor oral intake #History of laryngeal cancer Patient has laryngeal cancer currently undergoing radiation therapy Wednesday through Wednesday is seen by Dr. Emanuel [facility] For the past 5 months patient unable to tolerate p.o. including solids and liquids states whenever she attempts to consume anything orally will start coughing blood Dr. Duran recommended patient to come to the ED for possible PEG tube placement GI was consulted for possible PEG tube placement -On IV fluids -Possible PEG tube placement -GI Dr. Salas consulted, patient recommendations -Dr. Duran, radiation oncology consulted, appreciate recommendations #Undiagnosed COPD #Tobacco use Patient is an active smoker smokes about a pack a day On examination send bilateral wheezing heard Patient uses oxygen as needed at home -Nicotine patch provided -Azithromycin started -Started on DuoNebs #Diabetes mellitus -SSI -Hypoglycemia protocol in place #CKD stage IV Per patient she has chronic kidney disease Current EGFR more than 60 -Monitor at this time Case discussed with my senior Dr. Brown PGY-[address] Echo Abdullahi MD PGY-1 Disposition: MedSurg Fluids: NS Feeding: N.p.o. Thrombo prophylaxis: Heparin Gastric Ulcer prophylaxis: None CODE STATUS: Full code Attending Provider Attestation/Addendum Ramandeep Vieyra DO, attest that I was physically present for the [place]ow[place] portions of the service and evaluated the patient with the resident and I reviewed and discussed the case with the resident and agree with the resident's findings and plans of care as documented above Patient seen and evaluated this AM. Pending PEG tube placement. Postponed for tomorrow. Patient reports mild shortness of breath. Will start on azithromycin and breathing treatments. She remains on 3L/nc
[2024-03-28] MEDS: ALBUTEROL/IPRATROPIUM (Duoneb) RT SOL 3 ML NEBU INH ×2 (13:55→18:52)
[2024-03-28] MEDS: AZITHROMYCIN INJ 500 MG in SODIUM CHLORIDE 0.9% 250 ML 250 ML 250 MG IV (14:09)
--- NOTE | 2024-03-28 16:24 | PC.NURSE ---
Azithromycin Iv and vial connector failed contents of bag leaked on to floor pharmacy and MD made aware, Nurse requested from MD a one time dose for the administration. MD will place orders.
--- NOTE | 2024-03-28 20:36 | PD.IMPROG ---
Documentation for date of: 03/28/24 Subjective Subjective Interval history: Patient's right breast and rescheduled for tomorrow Exam Vital Signs Temp Pulse Resp BP Pulse Ox O2 Del Method O2 Flow Rate 96.8 F 84 16 146/61 H 97 Nasal Cannula 2 03/28/24 20:00 03/28/24 20:00 03/28/24 20:00 03/28/24 20:00 03/28/24 20:00 03/28/24 20:00 03/28/24 19:03 Objective Labs 03/28/24 04:50 03/28/24 04:50 Labs: Laboratory Results - last 24 hr 03/28/24 04:50 WBC 7.0 RBC 3.90 L Hgb 10.2 L Hct 33.9 L MCV 87 MCH 26.2 MCHC 30.1 L RDW Std Deviation 45.1 Plt Count 322 D Neut % (Auto) 65 Lymph % (Auto) 23 [place] % (Auto) 9 Eos % (Auto) 2 Baso % (Auto) 1 Neut # (Auto) 4.6 Lymph # (Auto) 1.6 [place] # (Auto) 0.6 Eos # (Auto) 0.1 Baso # (Auto) 0.0 Immature Gran # (Auto) 0.03 H Absolute Nucleated RBC 0.00 Immature Gran % 0 Nucleated RBC % 0 Sodium 143 Potassium 4.0 Chloride 108 H Carbon Dioxide 28.8 Anion Gap 6 L BUN 16 Creatinine 0.7 Estim Creat Clear Calc 54.7 L eGFR > 60 BUN/Creatinine Ratio 23 H Glucose 159 H Calculated Osmolality 289 Calcium 8.6 Corrected Calcium 9.1 Magnesium 2.0 Total Bilirubin 0.2 L AST < 10 ALT < 7 L Alkaline Phosphatase 76 Total Protein 6.4 Albumin 3.4 Globulin 3.0 Albumin/Globulin Ratio 1.1 L TSH 0.57 Impressions Impression: # failure to thrive # Dysphagia PEG placement a.m. Assessment & Plan A&P Narrative 1. 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 2. Has begun treatments with chemoradiation with swallowing difficulties. 3. Bilateral pneumonia. Receiving antibiotics 4. Dr. Salas's for endoscopy and PEG tube insertion. Time Spent With Patient Time: Total time spent is greater than 50% in coordination of care (as documented) at patient's floor/unit and/or counseling patient:
[2024-03-29] VITALS (23 sets, daily range): BP systolic 134–184; BP diastolic 61–96; PULSE 68–103; RESP 12–20; TEMP 36.4–37; O2SAT 90–100
[2024-03-29] MEDS: ALBUTEROL/IPRATROPIUM (Duoneb) RT SOL 3 ML NEBU INH ×3 (00:46→12:25)
[2024-03-29] MEDS: SODIUM CHLORIDE 0.9% 1000 ML 1,000 ML 100 ML IV ×2 (00:55→11:27)
[2024-03-29 06:15] LABS: Basophils % (Auto) 1 % (0-2.5); Eosinophils # (Auto) 0.1 Thou/mm3 (0.0-0.5); Eosinophils % (Auto) 1 % (0-10); Hematocrit 30.5 % (36.0-46.0); Hemoglobin 9.3 g/dL (12.0-16.0); Immature Granulocytes % (Auto) 1 % (0-0); Immature Granulocytes Auto 0.03 Thou/mm3 (0.00-0.00); Lymphocytes # (Auto) 1.1 Thou/mm3 (1.0-4.8); Lymphocytes % (Auto) 23 % (10-50); Mean Corpuscular HGB Conc 30.5 g/dl (31.0-37.0); Mean Corpuscular Volume 88 fL (80-100); Monocytes # (Auto) 0.4 Thou/mm3 (0.0-0.8); Monocytes % (Auto) 9 % (0-12); Neutrophils # (Auto) 3.2 Thou/mm3 (1.8-7.7); Neutrophils % (Auto) 66 % (37-80); Nucleated Red Blood Cell % 0 /100 WBC (0); Platelet Count 304 Thou/mm3 (140-440); RDW Standard Deviation 45.5 fL (36.4-46.3); Red Blood Count 3.45 Miln/mm3 (4.00-5.20); White Blood Count 4.9 Thou/mm3 (3.6-11.0)
[2024-03-29 06:51] LABS: Alanine Aminotransferase < 7 U/L (10-49); Albumin, Serum 3.2 gm/dL (3.4-4.8); Albumin/Globulin Ratio 1.1 (1.2-2.2); Alkaline Phosphatase 73 U/L (46-116); Anion Gap 6 (7-16); Aspartate Amino Transferase < 10 U/L (0-34); BUN/Creatinine Ratio 27 Ratio (12-20); Bilirubin,Total 0.2 mg/dL (0.3-1.2); Blood Urea Nitrogen 16 mg/dL (9-23); Calcium 8.6 mg/dL (8.3-10.6); Calcium (Corrected) 9.2 mg/dL (8.5-10.1); Carbon Dioxide 29.6 mMol/L (20.0-31.0); Chloride 109 mMol/L (98-107); Creatinine (Component) 0.6 mg/dL (0.6-1.3); Estimated Creatinine Clearance 61.1 mL/min (>60); Glucose 160 mg/dL (74-106); Magnesium 1.9 mg/dL (1.6-2.6); Osmolality,Calculated 292 (275-295); Sodium 145 mMol/L (136-145); Total Protein 6.2 gm/dL (5.7-8.2); eGFR > 60 See Note
[2024-03-29] MEDS: DOCUSATE SOD 100 MG CAPSULE PO (08:37)
[2024-03-29] MEDS: SENNA TABLET 1 TAB PO (08:37)
[2024-03-29] MEDS: AZITHROMYCIN INJ 500 MG in SODIUM CHLORIDE 0.9% 250 ML 250 ML 250 MG IV (08:39)
--- NOTE | 2024-03-29 14:17 | PC.SS ---
Rounding note: patient pending PEG tube possibly tomorrow. Dietary to follow.
--- NOTE | 2024-03-29 14:17 | PD.RESPRO ---
Documentation for date of: 03/29/24 Senior resident attestation: The patient is a 74-year-old female with a past medical history of laryngeal carcinoma, small cell lung carcinoma, who presented with progressive dysphagia for the past 5 months reported weight loss ongoing for the past 5 months unable to swallow, also concern for aspiration, recently started chemotherapy but has progressive difficulty swallowing. Who came into the emergency room with complaints of dysphagia, patient was admitted to medical floor, gastroenterology evaluated the patient, plan for PEG tube placement. #COPD exacerbation?continue azithromycin, DuoNebs, supplemental O2 as needed #Diabetes mellitus?sliding scale insulin #Dysphagia?pending PEG tube placement by vice president education Dr. Salas, n.p.o. for procedure. Patient evaluated and examined at the bedside, plan of care discussed with rest of the team including my attending physician, except as noted. Quresh PGY2 Subjective Subjective Interval history: Patient seen today at the bedside found awake, alert, orientedx3. No overnight events reported. States no active complaints, bilateral wheezing heard on previous examinations as improved compared to yesterday. Vital signs stable at this time. Patient PEG tube placement today by Dr. Salas. Will continue at this time with azithromycin. Registered dietitian consulted for educating the patient and family member about tube feeds. Exam Vital Signs Temp Pulse Resp BP Pulse Ox O2 Del Method O2 Flow Rate 98.6 F 88 18 154/67 H 100 Nasal Cannula 2 03/29/24 12:00 03/29/24 12:03/29/24 12:03/29/24 12:03/29/24 12:03/29/24 12:03/29/24 12: Narrative Exam Physical Exam GENERAL: NAD, AAOx3, frail HEENT: dry mucosa. Eyes open, symmetrical, & clear, right medport, crepitus on left side CARDIO: Heart RRR, no obvious murmurs PULM: No noted coughing/dyspnea, bilateral wheezing-improving GI: Abdomen soft, nondistended, no pain on palpation. BSx4 SKIN/MSK/EXT: No wounds/rashes/edema/amputations, no pain on palpation. Pedal pulses present B/L NEURO: AAOx3, no focal neuro deficits, able to move all 4 extremities Objective Labs 03/30/24 04:30 03/30/24 04:30 Labs: Laboratory Results - last 24 hr 03/29/24 04:40 WBC 4.9 RBC 3.45 L Hgb 9.3 L Hct 30.5 L MCV 88 MCH 27.0 MCHC 30.5 L RDW Std Deviation 45.5 Plt Count 304 Neut % (Auto) 66 Lymph % (Auto) 23 [place] % (Auto) 9 Eos % (Auto) 1 Baso % (Auto) 1 Neut # (Auto) 3.2 Lymph # (Auto) 1.1 [place] # (Auto) 0.4 Eos # (Auto) 0.1 Baso # (Auto) 0.0 Immature Gran # (Auto) 0.03 H Absolute Nucleated RBC 0.00 Immature Gran % 1 H Nucleated RBC % 0 Sodium 145 Potassium 4.0 Chloride 109 H Carbon Dioxide 29.6 Anion Gap 6 L BUN 16 Creatinine 0.6 Estim Creat Clear Calc 61.1 eGFR > 60 BUN/Creatinine Ratio 27 H Glucose 160 H Calculated Osmolality 292 Calcium 8.6 Corrected Calcium 9.2 Magnesium 1.9 Total Bilirubin 0.2 L AST < 10 ALT < 7 L Alkaline Phosphatase 73 Total Protein 6.2 Albumin 3.2 L Globulin 3.0 Albumin/Globulin Ratio 1.1 L Quality Measures Quality Measures none Advance care planning discussed with:: patient and spouse Assessment & Plan Assessment Current Active Medications: Generic Name Dose Route Start Last Admin Trade Name Freq PRN Reason Stop Dose Admin Acetaminophen 650 mg 03/27/24 14:30 Acetaminophen 325 Mg Tablet PO 04/26/24 14:29 Q6H PRN Fever >100.5 Acetaminophen 650 mg 03/27/24 14:30 Acetaminophen 325 Mg Tablet PO 04/26/24 14:29 Q6H PRN PAIN SCALE 1-3 (mild Hydrocodone Bitart/Acetaminophen 1 tab 03/27/24 15:53 03/27/24 18:13 Hydrocodone/Apap 5/325 Tablet PO 04/01/24 15:52 1 tab Q6HR PRN Administration PAIN SCALE 4-10(Mod-Sev Albuterol/Ipratropium 3 ml 03/28/24 13:00 03/29/24 12:25 Albuterol/Ipratropium (Duoneb) Rt Regla 3 Ml Nebu INH 04/27/24 12:59 3 ml Q6HRRT XENIA Administration Dextrose 25 ml 03/27/24 14:45 Dextrose 50%-Water Inj 50 Ml Syringe IV 04/26/24 14:44 Q15MIN PRN BG 50-70 responsive npo pt Dextrose 50 ml 03/27/24 14:45 Dextrose 50%-Water Inj 50 Ml Syringe IV 04/26/24 14:44 Q15MIN PRN BG <50 OR BG <70 & pt unresponsive Docusate Sodium 100 mg 03/28/24 09:00 03/29/24 08:37 Docusate Sod 100 Mg Capsule PO 04/27/24 08:59 100 mg QDAY XENIA Administration Protocol Glucagon 1 mg 03/27/24 14:45 Glucagon Inj 1 Mg Vial IM Q15MIN PRN BG <70, and no IV access Heparin Sodium (Porcine) 5,000 unit 03/27/24 22:00 03/29/24 13:20 Heparin Sod Inj 5000 Unit/Ml Vial SC 04/10/24 21:59 Not Given Q8HR XENIA Sodium Chloride 1,000 mls @ 100 mls/hr 03/27/24 15:01 03/29/24 11:27 Ns IV 04/26/24 15:00 100 mls/hr .Q10H XENIA Administration Azithromycin 500 mg/ Sodium 250 mls @ 250 mls/hr 03/28/24 11:51 03/29/24 08:39 Chloride IV 04/04/24 11:50 250 mls/hr QDAY XENIA Administration Insulin Human Lispro 0 unit 03/27/24 17:00 03/29/24 11:15 Insulin Lispro (Admelog) 1 Unit/0.01 Ml Unit SC 04/26/24 16:59 Not Given AC XENIA Protocol Ondansetron HCl 4 mg 03/27/24 14:30 Ondansetron Inj 2 Mg/Ml Inj 2 Ml IV 04/26/24 14:29 Q6H PRN NAUSEA OR VOMITING Protocol Sennosides 1 tab 03/27/24 15:00 03/29/24 08:37 Senna Tablet PO 04/26/24 14:59 1 tab QDAY XENIA Administration Protocol Plan 74-year-old female current active smoker with past medical history of diabetes CKD stage IV, laryngeal cancer currently undergoing radiation therapy Wednesday through Wednesday, seen by Dr. Duran was sent here from the cancer treatment center due to poor oral intake. Dr. Salas consulted for possible PEG tube placement #Failure to thrive #Poor oral intake #History of laryngeal cancer Patient has laryngeal cancer currently undergoing radiation therapy Wednesday through Wednesday is seen by Dr. [facility] For the past 5 months patient unable to tolerate p.o. including solids and liquids states whenever she attempts to consume anything orally will start coughing blood Dr. Duran recommended patient to come to the ED for possible PEG tube placement GI was consulted for possible PEG tube placement -On IV fluids -Pending PEG tube placement -GI Dr. Salas consulted, patient recommendations -Referral for registered dietitian placed -Dr. Duran, radiation oncology consulted, appreciate recommendations #Suspected COPD #Tobacco use Patient is an active smoker smokes about a pack a day On examination send bilateral wheezing heard Patient uses oxygen as needed at home -Nicotine patch provided -Azithromycin started -Started on DuoNebs #Diabetes mellitus -SSI -Hypoglycemia protocol in place #CKD stage IV Per patient she has chronic kidney disease Current EGFR more than 60 -Monitor at this time Case discussed with my senior Dr. Brown PGY-[address] Ehco Abdullahi MD PGY-1 Disposition: MedSurg Fluids: NS Feeding: N.p.o. Thrombo prophylaxis: Heparin Gastric Ulcer prophylaxis: None CODE STATUS: Full code Attending Provider Attestation/Addendum Ramandeep Vieyra, , attest that I was physically present for the chowdhury portions of the service and evaluated the patient with the resident and I reviewed and discussed the case with the resident and agree with the resident's findings and plans of care as documented above No acute events overnight. Pending PEG tube placement this evening. Home health ordered for tube feeding supplies.
[2024-03-29] MEDS: INSULIN LISPRO (AdmeLOG) 1 UNIT/0.01 ML UNIT SC (16:58)
--- NOTE | 2024-03-29 19:50 | SUR.PHASEI ---
1950 Report received from Lorraine JUNG
--- NOTE | 2024-03-29 20:31 | SUR.PHASEI ---
2021 Report given to Karine JUNG, patient meets discharge criteria from recovery, awake and talking with staff, on oxygen 2L via nasal cannula, breathing unlabored, vital signs stable, denies nausea, dressing intact around Peg tube, no bleeding noted. 2030 Patient transported via rney to room 366 without incident, Karine RN and CUSTODY OFFICER's promptly in patients room, patient transferred from gurney to bed without incident, patients at bedside, patient resting comfortably in bed when this signwriter left patients room with Karine at bedside.
[2024-03-29] MEDS: HEPARIN SOD INJ 5000 UNIT/ML VIAL SC (22:34)
--- NOTE | 2024-03-29 23:00 | PC.NURSE ---
at bedside with charge nurse Ana María and explained POC, tube feedings, to patient and at bedside, patient and family states understanding POC.
[2024-03-30] VITALS (9 sets, daily range): BP systolic 145–159; BP diastolic 57–77; PULSE 71–94; RESP 16–20; TEMP 36.2–36.8; O2SAT 92–99; BMI 20.2
[2024-03-30] MEDS: SODIUM CHLORIDE 0.9% 1000 ML 1,000 ML 100 ML IV ×3 (00:36→22:09)
[2024-03-30] MEDS: ALBUTEROL/IPRATROPIUM (Duoneb) RT SOL 3 ML NEBU INH ×4 (01:04→19:21)
[2024-03-30 06:14] LABS: Basophils # (Auto) 0.1 Thou/mm3 (0.0-0.2); Basophils % (Auto) 1 % (0-2.5); Eosinophils # (Auto) 0.1 Thou/mm3 (0.0-0.5); Eosinophils % (Auto) 1 % (0-10); Hematocrit 30.5 % (36.0-46.0); Hemoglobin 9.2 g/dL (12.0-16.0); Immature Granulocytes % (Auto) 1 % (0-0); Immature Granulocytes Auto 0.04 Thou/mm3 (0.00-0.00); Lymphocytes # (Auto) 1.3 Thou/mm3 (1.0-4.8); Lymphocytes % (Auto) 22 % (10-50); Mean Corpuscular HGB Conc 30.2 g/dl (31.0-37.0); Mean Corpuscular Hemoglobin 26.4 pg (25.0-35.0); Mean Corpuscular Volume 88 fL (80-100); Monocytes # (Auto) 0.5 Thou/mm3 (0.0-0.8); Monocytes % (Auto) 7 % (0-12); Neutrophils # (Auto) 4.2 Thou/mm3 (1.8-7.7); Neutrophils % (Auto) 69 % (37-80); Nucleated Red Blood Cell % 0 /100 WBC (0); Platelet Count 296 Thou/mm3 (140-440); RDW Standard Deviation 45.4 fL (36.4-46.3); Red Blood Count 3.48 Miln/mm3 (4.00-5.20); White Blood Count 6.1 Thou/mm3 (3.6-11.0)
[2024-03-30] MEDS: HEPARIN SOD INJ 5000 UNIT/ML VIAL SC ×3 (06:15→21:39)
[2024-03-30 07:05] LABS: Anion Gap 7 (7-16); BUN/Creatinine Ratio 22 Ratio (12-20); Blood Urea Nitrogen 13 mg/dL (9-23); Carbon Dioxide 29.2 mMol/L (20.0-31.0); Chloride 108 mMol/L (98-107); Creatinine (Component) 0.6 mg/dL (0.6-1.3); Estimated Creatinine Clearance 61.1 mL/min (>60); Potassium 3.9 mMol/L (3.4-5.1); Sodium 144 mMol/L (136-145); eGFR > 60 See Note
[2024-03-30 07:06] LABS: Alanine Aminotransferase < 7 U/L (10-49); Albumin, Serum 3.3 gm/dL (3.4-4.8); Albumin/Globulin Ratio 1.1 (1.2-2.2); Alkaline Phosphatase 74 U/L (46-116); Aspartate Amino Transferase 15 U/L (0-34); Bilirubin,Total 0.2 mg/dL (0.3-1.2); Calcium 8.4 mg/dL (8.3-10.6); Globulin 2.9 gm/dL (2.3-3.5); Glucose 195 mg/dL (74-106); Osmolality,Calculated 291 (275-295); Phosphorous 2.5 mg/dL (2.4-5.1); Total Protein 6.2 gm/dL (5.7-8.2)
[2024-03-30] MEDS: INSULIN LISPRO (AdmeLOG) 1 UNIT/0.01 ML UNIT SC ×3 (07:35→17:39)
--- NOTE | 2024-03-30 08:19 | PD.ONCPROG ---
Documentation for date of: 03/30/24 Subjective Subjective Interval history: Patient had G-tube placed yesterday tolerating well receiving feedings. Endoscopic findings were normal-appearing esophagus. Exam Vital Signs Temp Pulse Resp BP Pulse Ox O2 Del Method O2 Flow Rate 97.7 F 71 16 154/77 H 97 Nasal Cannula 2 03/30/24 08:00 03/30/24 08:00 03/30/24 08:00 03/30/24 08:00 03/30/24 08:00 03/30/24 08:00 03/30/24 08:00 Narrative Exam Appearing comfortable. Objective Labs 03/30/24 04:30 03/30/24 04:30 Labs: Laboratory Results - last 24 hr 03/30/24 04:30 WBC 6.1 RBC 3.48 L Hgb 9.2 L Hct 30.5 L MCV 88 MCH 26.4 MCHC 30.2 L RDW Std Deviation 45.4 Plt Count 296 Neut % (Auto) 69 Lymph % (Auto) 22 [place] % (Auto) 7 Eos % (Auto) 1 Baso % (Auto) 1 Neut # (Auto) 4.2 Lymph # (Auto) 1.3 [place] # (Auto) 0.5 Eos # (Auto) 0.1 Baso # (Auto) 0.1 Immature Gran # (Auto) 0.04 H Absolute Nucleated RBC 0.00 Immature Gran % 1 H Nucleated RBC % 0 Sodium 144 Potassium 3.9 Chloride 108 H Carbon Dioxide 29.2 Anion Gap 7 BUN 13 Creatinine 0.6 Estim Creat Clear Calc 61.1 eGFR > 60 BUN/Creatinine Ratio 22 H Glucose 195 H Calculated Osmolality 291 Calcium 8.4 Corrected Calcium 9.0 Phosphorus 2.5 Magnesium 2.0 Total Bilirubin 0.2 L AST 15 ALT < 7 L Alkaline Phosphatase 74 Total Protein 6.2 Albumin 3.3 L Globulin 2.9 Albumin/Globulin Ratio 1.1 L Assessment & Plan A&P Narrative 1. 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 2. Has begun treatments with chemoradiation with swallowing difficulties. 3. Bilateral pneumonia. Receiving antibiotics 4. Dr. Salas's d PEG tube insertion tolerating well. Time Spent With Patient Time: Total time spent is greater than 50% in coordination of care (as documented) at patient's floor/unit and/or counseling patient:
[2024-03-30] MEDS: AZITHROMYCIN INJ 500 MG in SODIUM CHLORIDE 0.9% 250 ML 250 ML 250 MG IV (08:20)
[2024-03-30] MEDS: SENNA TABLET 1 TAB PO (08:25)
[2024-03-30] MEDS: DOCUSATE SOD 100 MG CAPSULE PO (08:25)
[2024-03-30] MEDS: THIAMINE INJ 100 MG/ML VIAL 2 ML IVP (09:40)
--- NOTE | 2024-03-30 10:13 | PC.NURSE ---
Ditch Cleaner spoke with MD, orders received to keep TF at a rate of 30ml/hr for 24hrs. Increase by 10ml on 03/31 @ 0600 to goal of 40ml/hr. Endorsed.
[2024-03-30] MEDS: HYDROcodone/APAP 5/325 TABLET 1 TAB GT ×2 (11:28→23:37)
[2024-03-30] MEDS: NICOTINE PATCH 21 MG/24 HR PATCH.TD24 TOP (11:29)
--- NOTE | 2024-03-30 12:28 | ESPR_ITS ---
Documentation for date of: 03/30/24 Senior resident attestation: The patient is a 74-year-old female with a past medical history of laryngeal carcinoma, small cell lung carcinoma, who presented with progressive dysphagia for the past 5 months reported weight loss ongoing for the past 5 months unable to swallow, also concern for aspiration, recently started chemotherapy but has progressive difficulty swallowing. Who came into the emergency room with complaints of dysphagia, patient was admitted to medical floor, gastroenterology evaluated the patient, plan for PEG tube placement. Tube feeds capped at 30 cc/hr for today due to concern for refeeding syndrome, to be titrated at goal 40cc.hr tomorrow, case management will arrange supplies for home use . #COPD exacerbation?continue azithromycin, DuoNebs, supplemental O2 as needed #Diabetes mellitus?sliding scale insulin #Dysphagia?pending PEG tube placement by medical office supervisor Dr. Salas, n.p.o. for procedure. Patient evaluated and examined at the bedside, plan of care discussed with rest of the team including my attending physician, except as noted. Quresh PGY2 Subjective Subjective Interval history: Patient seen today at the bedside fine awake, alert, oriented x 3. No overnight events reported. States no active complaints. Vital signs stable at this time. Labs unremarkable. Patient is status post PEG tube placement, spoke to registered dietitian recommend continuing tube feeds at 30 cc/h till tomorrow and start IV thiamine as there is concern for refeeding syndrome after which tomorrow can advance to goal which is 40 cc/h. Anticipate discharge in the next 24 to 48 hours. Exam Vital Signs Temp Pulse Resp BP Pulse Ox O2 Del Method O2 Flow Rate 97.7 F 82 16 154/77 H 99 Nasal Cannula 2 03/30/24 08:00 03/30/24 12:00 03/30/24 12:00 03/30/24 08:00 03/30/24 12:00 03/30/24 08:00 03/30/24 12:00 Narrative Exam Physical Exam GENERAL: NAD, AAOx3, frail HEENT: dry mucosa. Eyes open, symmetrical, & clear, right medport, crepitus on left side CARDIO: Heart RRR, no obvious murmurs PULM: No noted coughing/dyspnea, bilateral wheezing-improving GI: Abdomen soft, nondistended, no pain on palpation. BSx4, PEG tube noted SKIN/MSK/EXT: No wounds/rashes/edema/amputations, no pain on palpation. Pedal pulses present B/L NEURO: AAOx3, no focal neuro deficits, able to move all 4 extremities Objective Labs 03/31/24 05:10 03/31/24 05:10 Labs: Laboratory Results - last 24 hr 03/30/24 04:30 WBC 6.1 RBC 3.48 L Hgb 9.2 L Hct 30.5 L MCV 88 MCH 26.4 MCHC 30.2 L RDW Std Deviation 45.4 Plt Count 296 Neut % (Auto) 69 Lymph % (Auto) 22 [place] % (Auto) 7 Eos % (Auto) 1 Baso % (Auto) 1 Neut # (Auto) 4.2 Lymph # (Auto) 1.3 [place] # (Auto) 0.5 Eos # (Auto) 0.1 Baso # (Auto) 0.1 Immature Gran # (Auto) 0.04 H Absolute Nucleated RBC 0.00 Immature Gran % 1 H Nucleated RBC % 0 Sodium 144 Potassium 3.9 Chloride 108 H Carbon Dioxide 29.2 Anion Gap 7 BUN 13 Creatinine 0.6 Estim Creat Clear Calc 61.1 eGFR > 60 BUN/Creatinine Ratio 22 H Glucose 195 H Calculated Osmolality 291 Calcium 8.4 Corrected Calcium 9.0 Phosphorus 2.5 Magnesium 2.0 Total Bilirubin 0.2 L AST 15 ALT < 7 L Alkaline Phosphatase 74 Total Protein 6.2 Albumin 3.3 L Globulin 2.9 Albumin/Globulin Ratio 1.1 L Quality Measures Quality Measures none Advance care planning discussed with:: patient and spouse Assessment & Plan Assessment Current Active Medications: Generic Name Dose Route Start Last Admin Trade Name Freq PRN Reason Stop Dose Admin Acetaminophen 650 mg 03/27/24 14:30 Acetaminophen 325 Mg Tablet PO 04/26/24 14:29 Q6H PRN Fever >100.5 Acetaminophen 650 mg 03/27/24 14:30 Acetaminophen 325 Mg Tablet PO 04/26/24 14:29 Q6H PRN PAIN SCALE 1-3 (mild Hydrocodone Bitart/Acetaminophen 1 tab 03/30/24 11:16 03/30/24 11:28 Hydrocodone/Apap 5/325 Tablet GT 04/01/24 15:52 1 tab Q6HR PRN Administration PAIN SCALE 4-10(Mod-Sev Albuterol/Ipratropium 3 ml 03/28/24 13:00 03/30/24 12:00 Albuterol/Ipratropium (Duoneb) Rt Regla 3 Ml Nebu INH 04/27/24 12:59 3 ml Q6HRRT XENIA Administration Dextrose 25 ml 03/27/24 14:45 Dextrose 50%-Water Inj 50 Ml Syringe IV 04/26/24 14:44 Q15MIN PRN BG 50-70 responsive npo pt Dextrose 50 ml 03/27/24 14:45 Dextrose 50%-Water Inj 50 Ml Syringe IV 04/26/24 14:44 Q15MIN PRN BG <50 OR BG <70 & pt unresponsive Docusate Sodium 100 mg 03/31/24 09:00 Docusate Sod Liqd 100 Mg/10 Ml Udc GT 04/30/24 08:59 QDAY XENIA Protocol Glucagon 1 mg 03/27/24 14:45 Glucagon Inj 1 Mg Vial IM Q15MIN PRN BG <70, and no IV access Heparin Sodium (Porcine) 5,000 unit 03/27/24 22:00 03/30/24 06:15 Heparin Sod Inj 5000 Unit/Ml Vial SC 04/10/24 21:59 5,000 unit Q8HR XENIA Administration Sodium Chloride 1,000 mls @ 100 mls/hr 03/27/24 15:01 03/30/24 11:49 Ns IV 04/26/24 15:00 100 mls/hr .Q10H XENIA Administration Azithromycin 500 mg/ Sodium 250 mls @ 250 mls/hr 03/28/24 11:51 03/30/24 08:20 Chloride IV 04/04/24 11:50 250 mls/hr QDAY XENIA Administration Insulin Human Lispro 0 unit 03/27/24 17:00 03/30/24 11:44 Insulin Lispro (Admelog) 1 Unit/0.01 Ml Unit SC 04/26/24 16:59 1 unit AC XENIA Administration Protocol Nicotine 21 mg 03/30/24 11:10 03/30/24 11:29 Nicotine Patch 21 Mg/24 Hr Patch.Td24 TOP 04/29/24 11:09 21 mg QDAY XENIA Administration Ondansetron HCl 4 mg 03/27/24 14:30 Ondansetron Inj 2 Mg/Ml Inj 2 Ml IV 04/26/24 14:29 Q6H PRN NAUSEA OR VOMITING Protocol Sennosides 8.8 mg 03/31/24 09:00 Sennosides Syrup 8.8 Mg/5 Ml Udc GT 04/30/24 08:59 QDAY XENIA Protocol Thiamine HCl 100 mg 03/30/24 09:30 03/30/24 09:40 Thiamine Inj 100 Mg/Ml Vial 2 Ml IVP 04/29/24 09:29 100 mg QDAY XENIA Administration Plan 74-year-old female current active smoker with past medical history of diabetes CKD stage IV, laryngeal cancer currently undergoing radiation therapy Wednesday through Wednesday, seen by Dr. Duran was sent here from the cancer treatment center due to poor oral intake. Dr. Salas consulted for possible PEG tube placement #Failure to thrive #Poor oral intake #Status post PEG tube placement #Concern for refeeding syndrome #History of laryngeal cancer Patient has laryngeal cancer currently undergoing radiation therapy Wednesday through Wednesday is seen by Dr. [facility] For the past 5 months patient unable to tolerate p.o. including solids and liquids states whenever she attempts to consume anything orally will start coughing blood Dr. Duran recommended patient to come to the ED for possible PEG tube placement GI was consulted for possible PEG tube placement -Continue tube feeds at 30 cc/h will advance to goal tomorrow 40 cc/h -IV thiamine ordered -Continue water flushes 100ml every 4 hours -GI Dr. Salas consulted, patient recommendations -Referral for registered dietitian placed -Dr. Duran, radiation oncology consulted, appreciate recommendations #Undiagnosed COPD #Tobacco use Patient is an active smoker smokes about a pack a day On examination send bilateral wheezing heard Patient uses oxygen as needed at home -Nicotine patch provided -Azithromycin started -Started on DuoNebs #Diabetes mellitus -SSI -Hypoglycemia protocol in place #CKD stage IV Per patient she has chronic kidney disease Current EGFR more than 60 -Monitor at this time Case discussed with my senior Dr. Brown PGY-[address] Echo Abdullahi MD PGY-1 Disposition: MedSurg Fluids: NS Feeding: N.p.o. Thrombo prophylaxis: Heparin Gastric Ulcer prophylaxis: None CODE STATUS: Full code Attending Provider Attestation/Addendum Ramandeep Vieyra, , attest that I was physically present for the chowdhury portions of the service and evaluated the patient with the resident and I reviewed and discussed the case with the resident and agree with the resident's findings and plans of care as documented above Patient seen and evaluated this AM. Patient complains of some pain at PEG tube insertion site, but surrounding area appears clean, dry and intact. Patient states the pain is triggered by movement. [place] available as needed for pain control. at bedside. Patient states she already has established home health company. Continue with advancing tube feedings and will reach goal tomorrow. states patient would prefer to use syringe for feedings to gravity, rather than via pump. Communicated this to dietitian. Anticipate DC tomorrow once feedings are at goal. Patient is otherwise tolerating them well. Electrolytes within normal limits.
--- NOTE | 2024-03-30 13:36 | PC.DIETICIAN ---
Home TF recommendation: Jevity 1.5 240mL 4x/day via PEG-tube, by syringe to provide: total volume 960mL, 1420 kcal, 60g PRO, 720 free water, 100 mL water flush after feeds. ? Prepare the formula: Ensure Jevity 1.5 (240mL) is at room temperature before feeding; discard any unused formula left at room temp for more than 4 hours. ? Feeding procedure: Administer via syringe, pushing slowly to avoid discomfort, and follow with a 100mL water flush after each feed. ? Tube and site care: Flush the PEG tube with water after every feed, monitor for any site issues, and clean feeding supplies thoroughly after each use.
--- NOTE | 2024-03-30 20:19 | PD.IMPROG ---
Documentation for date of: 03/30/24 Subjective Subjective Interval history: Patient evaluated PEG tube in place PEG site looks good Exam Vital Signs Temp Pulse Resp BP Pulse Ox O2 Del Method O2 Flow Rate 97.8 F 76 16 155/70 H 95 Nasal Cannula 2 03/30/24 16:00 03/30/24 16:00 03/30/24 16:00 03/30/24 16:00 03/30/24 16:00 03/30/24 16:00 03/30/24 16:00 Objective Labs 03/30/24 04:30 03/30/24 04:30 Labs: Laboratory Results - last 24 hr 03/30/24 04:30 WBC 6.1 RBC 3.48 L Hgb 9.2 L Hct 30.5 L MCV 88 MCH 26.4 MCHC 30.2 L RDW Std Deviation 45.4 Plt Count 296 Neut % (Auto) 69 Lymph % (Auto) 22 [place] % (Auto) 7 Eos % (Auto) 1 Baso % (Auto) 1 Neut # (Auto) 4.2 Lymph # (Auto) 1.3 [place] # (Auto) 0.5 Eos # (Auto) 0.1 Baso # (Auto) 0.1 Immature Gran # (Auto) 0.04 H Absolute Nucleated RBC 0.00 Immature Gran % 1 H Nucleated RBC % 0 Sodium 144 Potassium 3.9 Chloride 108 H Carbon Dioxide 29.2 Anion Gap 7 BUN 13 Creatinine 0.6 Estim Creat Clear Calc 61.1 eGFR > 60 BUN/Creatinine Ratio 22 H Glucose 195 H Calculated Osmolality 291 Calcium 8.4 Corrected Calcium 9.0 Phosphorus 2.5 Magnesium 2.0 Total Bilirubin 0.2 L AST 15 ALT < 7 L Alkaline Phosphatase 74 Total Protein 6.2 Albumin 3.3 L Globulin 2.9 Albumin/Globulin Ratio 1.1 L Impressions Impression: # Failure to thrive # Status post PEG tube continue enteral hyperalimentation Assessment & Plan A&P Narrative 1. 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 2. Has begun treatments with chemoradiation with swallowing difficulties. 3. Bilateral pneumonia. Receiving antibiotics 4. Dr. Salas's d PEG tube insertion tolerating well. Time Spent With Patient Time: Total time spent is greater than 50% in coordination of care (as documented) at patient's floor/unit and/or counseling patient:
--- NOTE | 2024-03-30 23:22 | PC.NURSE ---
called Dr. Darby regarding patient wanting something to make her go to sleep. Per MD will put in orders.
[2024-03-30] MEDS: MELATONIN 3 MG TABLET PO (23:37)
[2024-03-31] VITALS (12 sets, daily range): BP systolic 137–171; BP diastolic 60–73; PULSE 73–90; RESP 16–91; TEMP 36.1–36.7; O2SAT 92–100
[2024-03-31] MEDS: ALBUTEROL/IPRATROPIUM (Duoneb) RT SOL 3 ML NEBU INH ×4 (00:56→19:36)
[2024-03-31] MEDS: HYDROcodone/APAP 5/325 TABLET 1 TAB GT ×2 (05:52→18:39)
[2024-03-31] MEDS: HEPARIN SOD INJ 5000 UNIT/ML VIAL SC ×2 (05:53→13:11)
[2024-03-31 05:57] LABS: Basophils % (Auto) 1 % (0-2.5); Eosinophils # (Auto) 0.1 Thou/mm3 (0.0-0.5); Eosinophils % (Auto) 2 % (0-10); Hematocrit 30.2 % (36.0-46.0); Hemoglobin 9.3 g/dL (12.0-16.0); Immature Granulocytes % (Auto) 1 % (0-0); Immature Granulocytes Auto 0.03 Thou/mm3 (0.00-0.00); Lymphocytes # (Auto) 1.2 Thou/mm3 (1.0-4.8); Lymphocytes % (Auto) 19 % (10-50); Mean Corpuscular HGB Conc 30.8 g/dl (31.0-37.0); Mean Corpuscular Hemoglobin 26.6 pg (25.0-35.0); Mean Corpuscular Volume 87 fL (80-100); Monocytes # (Auto) 0.6 Thou/mm3 (0.0-0.8); Monocytes % (Auto) 10 % (0-12); Neutrophils # (Auto) 4.3 Thou/mm3 (1.8-7.7); Neutrophils % (Auto) 69 % (37-80); Nucleated Red Blood Cell % 0 /100 WBC (0); Platelet Count 276 Thou/mm3 (140-440); RDW Standard Deviation 45.3 fL (36.4-46.3); Red Blood Count 3.49 Miln/mm3 (4.00-5.20); White Blood Count 6.3 Thou/mm3 (3.6-11.0)
[2024-03-31 06:58] LABS: Alanine Aminotransferase < 7 U/L (10-49); Albumin, Serum 3.2 gm/dL (3.4-4.8); Albumin/Globulin Ratio 1.2 (1.2-2.2); Alkaline Phosphatase 84 U/L (46-116); Anion Gap 5 (7-16); Aspartate Amino Transferase < 8 U/L (0-34); BUN/Creatinine Ratio 18 Ratio (12-20); Bilirubin,Total 0.2 mg/dL (0.3-1.2); Blood Urea Nitrogen 11 mg/dL (9-23); Calcium 8.7 mg/dL (8.3-10.6); Calcium (Corrected) 9.3 mg/dL (8.5-10.1); Carbon Dioxide 30.8 mMol/L (20.0-31.0); Chloride 108 mMol/L (98-107); Creatinine (Component) 0.6 mg/dL (0.6-1.3); Estimated Creatinine Clearance 61.1 mL/min (>60); Globulin 2.7 gm/dL (2.3-3.5); Glucose 216 mg/dL (74-106); Magnesium 1.9 mg/dL (1.6-2.6); Osmolality,Calculated 293 (275-295); Phosphorous 2.7 mg/dL (2.4-5.1); Potassium 3.4 mMol/L (3.4-5.1); Sodium 144 mMol/L (136-145); Total Protein 5.9 gm/dL (5.7-8.2); eGFR > 60 See Note
--- NOTE | 2024-03-31 08:32 | PC.CM ---
Addendum entered by Melita Lynn RN 03/31/24 19:38: new gtube. Patient accepted by [facility] they will open on Wednesday. [facility] accepted and they are working on auth. Please review notes on this patient as she may be able to discharge tomorrow. Original Note: I was told patient was already opened to a home health agency but family was not sure which one. I sent referral to all agencies today. If patient is opened to an agency, they will be able to see who patient is opened with.
[2024-03-31] MEDS: SODIUM CHLORIDE 0.9% 1000 ML 1,000 ML 100 ML IV ×2 (08:47→19:35)
[2024-03-31] MEDS: AZITHROMYCIN INJ 500 MG in SODIUM CHLORIDE 0.9% 250 ML 250 ML 250 MG IV (08:48)
[2024-03-31] MEDS: NICOTINE PATCH 21 MG/24 HR PATCH.TD24 TOP (08:48)
[2024-03-31] MEDS: THIAMINE INJ 100 MG/ML VIAL 2 ML IVP (08:49)
[2024-03-31] MEDS: INSULIN LISPRO (AdmeLOG) 1 UNIT/0.01 ML UNIT SC ×3 (08:49→17:03)
--- NOTE | 2024-03-31 10:28 | PC.SS ---
SS follow up: Was informed the patient will be discharging to her life partners home: [facility] . Address provided: [address] [place] [address]. [facility]. Notiifed transfer nurse Melita. Per transfer nurse, patient is pending home health establishment before being able to discharge. Home health is for new peg tube management.
--- NOTE | 2024-03-31 13:33 | ESDS_ITS ---
<Statement entered by Jaquan Jain MD - 04/08/24 13:37> I reviewed above note and agree with findings and plans. I have also personally examined the patient with medicine team and went over assessment and plan with medical team including financial services internship and resident physician. Planned Discharge Date 03/31/24 DS: Providers Provider Date of admission: 03/28/24 09:13 Primary care physician: Physician No Primary/Family Admitting Provider: Ramandeep Dodge DO Attending Provider on Admission: Ramandeep Dodge DO Consults: 03/27/24 14:31 Consult to Gastroenterology Stat Comment: PEG tube placement Consulting Provider: Stacy Salas Consult to Oncology Stat Comment: Consulting Provider: Marko Duran 03/28/24 09:36 Referral Registered Dietitian Stat Comment: 03/29/24 19:44 Referral Registered Dietitian Routine Comment: Instructions: NEW PEG TUBE Attending Provider on DC: Jaquan Jain MD Discharging Provider: Chilo Abdullahi MD Anticipated date of discharge: 03/31/24 DS: Diagnosis Problem List Completed Was Problem List Reviewed/Reconciled?: Yes Hospital Course Hospital Course Hospital course: 74-year-old female current active smoker with past medical history of diabetes CKD stage IV, laryngeal cancer currently undergoing radiation therapy Wednesday through Wednesday, seen by Dr. Duran was sent here from the cancer treatment center due to poor oral intake. Dr. Salas consulted for possible PEG tube placement. During hospital stay patient was evaluated by GI specialist, Dr. Salas and patient had PEG tube placement procedure. Post-procedure patient was started on tube feeds. Tube feeds were continued until reaching goal. As patient was not having adequate nutrition for the past 5 months there was concern for refeeding syndrome, registered route associate was consulted and provided recommendations in regards to tube feeds. Patient has laryngeal cancer and is seen by Dr. Duran radiation oncologist, he was consulted and provided continued management of patients cancer. Patient has history of tobacco use and is an active smoker. Patient was counseled on the importance of smoking cessation explained the risk and benefits. Diabetes was managed with insulin sliding scale. At this time patient is stable for discharge. Follow up with primary doctor within 1 week of discharge. Follow up with Dr. Duran radiation oncologist in regards to management of laryngeal cancer in the cancer center within 1-2 weeks of discharge. Continue tube feeds at 40ml/hr with 100ml water flushes every 4 hours. Should any symptoms recur or worsen patient is instructed to return to the ED. #Failure to thrive #Poor oral intake #Status post PEG tube placement #Concern for refeeding syndrome #History of laryngeal cancer #Undiagnosed COPD #Tobacco use #Diabetes mellitus #CKD stage IV Case discussed with my attending Dr. Cristobal Abdullahi MD PGY-1 Status at Discharge Functional status at discharge: independent ambulation Overall status at discharge: patient is back to baseline Time Spent with Patient Time attestation: Total time spent providing and/or coordinating discharge services: Time spent: Greater than 30 minutes Exam Vital Signs Temp Pulse Resp BP Pulse Ox O2 Del Method O2 Flow Rate 97.0 F 80 18 144/72 H 100 Room Air 2 03/31/24 12:00 03/31/24 12:33 03/31/24 12:33 03/31/24 12:00 03/31/24 12:03/31/24 12:03/31/24 08:00 Narrative Exam Physical Exam GENERAL: NAD, AAOx3, frail HEENT: dry mucosa. Eyes open, symmetrical, & clear, right medport, crepitus on left side CARDIO: Heart RRR, no obvious murmurs PULM: No noted coughing/dyspnea, bilateral wheezing-improving GI: Abdomen soft, nondistended, no pain on palpation. BSx4, PEG tube noted SKIN/MSK/EXT: No wounds/rashes/edema/amputations, no pain on palpation. Pedal pulses present B/L NEURO: AAOx3, no focal neuro deficits, able to move all 4 extremities Discharge Plan Plan Patient Disposition: Home w/HOME HEALTH Disposition Comment: Stable for admit Care Plan Goals: Follow up with primary doctor within 1 week of discharge. Follow up with Dr. Duran radiation oncologist in regards to management of laryngeal cancer in the cancer center within 1-2 weeks of discharge. Continue tube feeds at 40ml/hr with 100ml water flushes every 4 hours Should any symptoms recur or worsen patient is instructed to return to the ED. Prescriptions/Referrals Prescriptions/Med Rec: New azithromycin 500 mg tablet See Rx Instructions .ROUTE .COMPLEX Qty: 3 0RF Rx Instructions: For 500 mg dose pack: take 500 mg once daily for 3 days Continued hydrocodone-acetaminophen 5-325 mg Tablet 1 tab PO Q6H PRN (Reason: Pain) Discontinued furosemide 20 mg Tablet 20 mg PO BID Referrals: Linda Mendosa FNP [Referring Provider] - Patient/Caregiver Discharge Instructions Other Discharge Diet Instructions: Home TF recommendation: Jevity 1.5 240mL 4x/day via PEG-tube, by syringe to provide: total volume 960mL, 1420 kcal, 60g PRO, 720 free water, 100 mL water flush after feeds. ? Prepare the formula: Ensure Jevity 1.5 (240mL) is at room temperature before feeding; discard any unused formula left at room temp for more than 4 hours. ? Feeding procedure: Administer via syringe, pushing slowly to avoid discomfort, and follow with a 100mL water flush after each feed. ? Tube and site care: Flush the PEG tube with water after every feed, monitor for any site issues, and clean feeding supplies thoroughly after each use. Print Language: Belarusian Stand Alone Forms: Miya Award Info., Patient Portal Info Letter Discharge Order Discharge Orders: Discharge (Routine); Ordered 03/31/24 Ordered By: Becky Abdi Quality Discharge Quality Measures VTE prophylaxis
[2024-03-31] MEDS: carVEDILOL 3.125 MG TABLET PO (18:33)
[2024-03-31] MEDS: PHENOL/NA PHENOLATE (Chloraseptic) SPRY 180 ML BTL PO (18:34)
--- NOTE | 2024-03-31 19:27 | PD.IMPROG ---
Documentation for date of: 03/31/24 Subjective Subjective Interval history: PEG site checked No drainage Discharge planning in progress Okay to discharge patient to be followed by her oncologist Exam Vital Signs Temp Pulse Resp BP Pulse Ox O2 Del Method O2 Flow Rate 97.0 F 89 18 171/60 H 100 Room Air 2 03/31/24 16:00 03/31/24 18:33 03/31/24 16:00 03/31/24 18:33 03/31/24 16:00 03/31/24 16:00 03/31/24 08:00 Objective Labs 03/31/24 05:10 03/31/24 05:10 Labs: Laboratory Results - last 24 hr 03/31/24 05:10 WBC 6.3 RBC 3.49 L Hgb 9.3 L Hct 30.2 L MCV 87 MCH 26.6 MCHC 30.8 L RDW Std Deviation 45.3 Plt Count 276 Neut % (Auto) 69 Lymph % (Auto) 19 [place] % (Auto) 10 Eos % (Auto) 2 Baso % (Auto) 1 Neut # (Auto) 4.3 Lymph # (Auto) 1.2 [place] # (Auto) 0.6 Eos # (Auto) 0.1 Baso # (Auto) 0.0 Immature Gran # (Auto) 0.03 H Absolute Nucleated RBC 0.00 Immature Gran % 1 H Nucleated RBC % 0 Sodium 144 Potassium 3.4 D Chloride 108 H Carbon Dioxide 30.8 Anion Gap 5 L BUN 11 Creatinine 0.6 Estim Creat Clear Calc 61.1 eGFR > 60 BUN/Creatinine Ratio 18 Glucose 216 H Calculated Osmolality 293 Calcium 8.7 Corrected Calcium 9.3 Phosphorus 2.7 Magnesium 1.9 Total Bilirubin 0.2 L AST < 8 ALT < 7 L Alkaline Phosphatase 84 Total Protein 5.9 Albumin 3.2 L Globulin 2.7 Albumin/Globulin Ratio 1.2 Impressions Impression: # Failure to thrive # PEG placement for enteral hyperalimentation Continue current management Assessment & Plan A&P Narrative 1. 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 2. Has begun treatments with chemoradiation with swallowing difficulties. 3. Bilateral pneumonia. Receiving antibiotics 4. Dr. Salas's d PEG tube insertion tolerating well. Time Spent With Patient Time: Total time spent is greater than 50% in coordination of care (as documented) at patient's floor/unit and/or counseling patient:
[2024-03-31] MEDS: MELATONIN 3 MG TABLET PO (21:20)
[2024-04-01] VITALS: BP 154/69; PULSE 77; RESP 18; TEMP 36.3; O2SAT 95
[2024-04-01] MEDS: HYDROcodone/APAP 5/325 TABLET 1 TAB GT (00:52)
[2024-04-01] MEDS: MELATONIN 3 MG TABLET PO (01:05)
[2024-04-01 04:00] VITALS: BP 156/67; PULSE 75; RESP 18; TEMP 36.4; O2SAT 94
[2024-04-01 05:09] LABS: Basophils % (Auto) 1 % (0-2.5); Eosinophils # (Auto) 0.1 Thou/mm3 (0.0-0.5); Eosinophils % (Auto) 2 % (0-10); Hematocrit 30.6 % (36.0-46.0); Hemoglobin 9.3 g/dL (12.0-16.0); Immature Granulocytes % (Auto) 0 % (0-0); Immature Granulocytes Auto 0.02 Thou/mm3 (0.00-0.00); Lymphocytes # (Auto) 1.4 Thou/mm3 (1.0-4.8); Lymphocytes % (Auto) 22 % (10-50); Mean Corpuscular HGB Conc 30.4 g/dl (31.0-37.0); Mean Corpuscular Hemoglobin 26.2 pg (25.0-35.0); Mean Corpuscular Volume 86 fL (80-100); Monocytes # (Auto) 0.6 Thou/mm3 (0.0-0.8); Monocytes % (Auto) 9 % (0-12); Neutrophils # (Auto) 4.2 Thou/mm3 (1.8-7.7); Neutrophils % (Auto) 67 % (37-80); Nucleated Red Blood Cell % 0 /100 WBC (0); Platelet Count 253 Thou/mm3 (140-440); Red Blood Count 3.55 Miln/mm3 (4.00-5.20); White Blood Count 6.4 Thou/mm3 (3.6-11.0)
[2024-04-01] MEDS: SODIUM CHLORIDE 0.9% 1000 ML 1,000 ML 100 ML IV (05:18)
[2024-04-01 05:50] LABS: Alanine Aminotransferase < 7 U/L (10-49); Albumin, Serum 3.1 gm/dL (3.4-4.8); Albumin/Globulin Ratio 1.1 (1.2-2.2); Alkaline Phosphatase 83 U/L (46-116); Anion Gap 4 (7-16); Aspartate Amino Transferase < 10 U/L (0-34); BUN/Creatinine Ratio 22 Ratio (12-20); Bilirubin,Total 0.2 mg/dL (0.3-1.2); Blood Urea Nitrogen 11 mg/dL (9-23); Calcium 8.5 mg/dL (8.3-10.6); Calcium (Corrected) 9.2 mg/dL (8.5-10.1); Carbon Dioxide 29.9 mMol/L (20.0-31.0); Chloride 109 mMol/L (98-107); Creatinine (Component) 0.5 mg/dL (0.6-1.3); Estimated Creatinine Clearance 73.4 mL/min (>60); Globulin 2.7 gm/dL (2.3-3.5); Glucose 213 mg/dL (74-106); Magnesium 1.9 mg/dL (1.6-2.6); Osmolality,Calculated 290 (275-295); Phosphorous 3.4 mg/dL (2.4-5.1); Potassium 3.9 mMol/L (3.4-5.1); Sodium 143 mMol/L (136-145); Total Protein 5.8 gm/dL (5.7-8.2); eGFR > 60 See Note
[2024-04-01] MEDS: ALBUTEROL/IPRATROPIUM (Duoneb) RT SOL 3 ML NEBU INH (07:22)
[2024-04-01 07:25] VITALS: PULSE 87; RESP 18; RESP 97; O2SAT 97
[2024-04-01] MEDS: INSULIN LISPRO (AdmeLOG) 1 UNIT/0.01 ML UNIT SC (07:42)
[2024-04-01 07:57] VITALS: BP 140/65; PULSE 76
[2024-04-01] MEDS: carVEDILOL 3.125 MG TABLET PO (07:57)
[2024-04-01 08:00] VITALS: BP 140/65; PULSE 76; RESP 18; TEMP 36.8; O2SAT 91
[2024-04-01] MEDS: THIAMINE INJ 100 MG/ML VIAL 2 ML IVP (08:01)
[2024-04-01] MEDS: NICOTINE PATCH 21 MG/24 HR PATCH.TD24 TOP (08:02)
[2024-04-01] MEDS: AZITHROMYCIN INJ 500 MG in SODIUM CHLORIDE 0.9% 250 ML 250 ML 250 MG IV (08:13)
--- NOTE | 2024-04-01 09:53 | PCS.ST ---
Swallow Evaluation completed. See report for details. PO for pleasure only suggested. Requires swallow techniques with liquids. Performs well.
--- NOTE | 2024-04-01 12:09 | PC.SS ---
SS informed by KWAME Hanks RN pt fam can be educated on feeding and we can provide supplies for a few days until HH can come out to see pt. small animal veterinarianJoy and RNMalka aware and updated on plan.
--- NOTE | 2024-04-01 13:27 | ESDS_ITS ---
<Statement entered by Jaquan Jain MD - 04/08/24 13:39> I reviewed above note and agree with findings and plans. I have also personally examined the patient with medicine team and went over assessment and plan with medical team including statistics intern and resident physician. Planned Discharge Date 04/01/24 DS: Providers Provider Date of admission: 03/28/24 09:13 Primary care physician: Physician No Primary/Family Admitting Provider: Ramandeep Dodge DO Attending Provider on Admission: Ramandeep Dodge DO Consults: 03/27/24 14:31 Consult to Gastroenterology Stat Comment: PEG tube placement Consulting Provider: Stacy Salas Consult to Oncology Stat Comment: Consulting Provider: Marko Duran 03/28/24 09:36 Referral Registered Dietitian Stat Comment: 03/29/24 19:44 Referral Registered Dietitian Routine Comment: Instructions: NEW PEG TUBE 03/31/24 17:20 Referral Speech Therapy Stat Comment: Attending Provider on DC: Jaquan Jain MD Discharging Provider: Chilo Abdullahi MD Anticipated date of discharge: 04/01/24 DS: Diagnosis Problem List Completed Was Problem List Reviewed/Reconciled?: Yes Hospital Course Hospital Course Hospital course: 74-year-old female current active smoker with past medical history of diabetes CKD stage IV, laryngeal cancer currently undergoing radiation therapy Wednesday through Wednesday, seen by Dr. Duran was sent here from the cancer treatment center due to poor oral intake. Dr. Salas consulted for possible PEG tube placement. During hospital stay patient was evaluated by GI specialist, Dr. Salas and patient had PEG tube placement procedure. Post-procedure patient was started on tube feeds. Tube feeds were continued until reaching goal. As patient was not having adequate nutrition for the past 5 months there was concern for refeeding syndrome, registered veterinary technician was consulted and provided recommendations in regards to tube feeds. Patient has laryngeal cancer and is seen by Dr. Duran radiation oncologist, he was consulted and provided continued management of patients cancer. Patient has history of tobacco use and is an active smoker. Patient was counseled on the importance of smoking cessation explained the risk and benefits. Diabetes was managed with insulin sliding scale. At this time patient is stable for discharge. Follow up with primary doctor within 1 week of discharge. Follow up with Dr. Duran radiation oncologist in regards to management of laryngeal cancer in the cancer center within 1-2 weeks of discharge. Continue tube feeds at 40ml/hr with 100ml water flushes every 4 hours. Should any symptoms recur or worsen patient is instructed to return to the ED. #Failure to thrive #Poor oral intake #Status post PEG tube placement #Concern for refeeding syndrome #History of laryngeal cancer #Undiagnosed COPD #Tobacco use #Diabetes mellitus #CKD stage IV Case discussed with my attending Dr. Cristobal Abdullahi MD PGY-1 Status at Discharge Functional status at discharge: independent ambulation Overall status at discharge: patient is back to baseline Time Spent with Patient Time attestation: Total time spent providing and/or coordinating discharge services: Time spent: Greater than 30 minutes Home Health Home Health Referral Orders: 03/31/24 15:00 Home Health Referral Routine Reason For Exam: PEG tube Home-Bound The patient must either because of illness or injury, need the aid of supportive devices such as crutches, canes, wheelchairs, and walkers; the use of special transportation; or the assistance of another person in order to leave their place of residence; OR have a condition such that leaving his or her home is medically contraindicated. In addition, the patient also meets the following criteria: patient is normally unable to leave the home and leaving home requires considerable taxing effort. Addendum to Home Health Certification Practitioner's Certification: I certify that the patient has been under my care in the hospital and the care of attending physician (see below). We had a [id number] encounter on (see date below). My clinical findings indicate that the patient is home bound per the above criteria and the Home Health Services noted in these orders are medically necessary. The primary reason for the [id number] encounter is related to the fact that the patient requires home health services. Date Certifying [id number] Physician Encounter: 03/27/24 Physician's Name who will Assume Oversight for HH Services: Physician No Primary/Family WARP HAND - Community Resources: No PT to Evaluate: Yes PT to evaluate and provide a treatmnet plan to increase patient's mobility an d strength. Wound Care: No IV Therapy: No RN Safety Evaluation: Yes RN to evaluate and create a plan of care that will produce positive outcomes. Palliative Treatment: No Palliative treatment and evaluate the need for hospice. Home Health Aide - Personal Care: No Home Health Aide to assist with any ADL's. Exam Vital Signs Temp Pulse Resp BP Pulse Ox O2 Del Method O2 Flow Rate 98.3 F 76 18 140/65 H 91 L Nasal Cannula 1 04/01/24 08:00 04/01/24 08:00 04/01/24 08:00 04/01/24 08:00 04/01/24 08:00 04/01/24 08:00 04/01/24 08:00 Narrative Exam Physical Exam GENERAL: NAD, AAOx3, frail HEENT: dry mucosa. Eyes open, symmetrical, & clear, right medport, crepitus on left side CARDIO: Heart RRR, no obvious murmurs PULM: No noted coughing/dyspnea, bilateral wheezing-improving GI: Abdomen soft, nondistended, no pain on palpation. BSx4, PEG tube noted SKIN/MSK/EXT: No wounds/rashes/edema/amputations, no pain on palpation. Pedal pulses present B/L NEURO: AAOx3, no focal neuro deficits, able to move all 4 extremities Discharge Plan Plan Patient Disposition: Home w/HOME HEALTH Disposition Comment: Stable for admit Care Plan Goals: Follow up with primary doctor within 1 week of discharge. Follow up with Dr. Duran radiation oncologist in regards to management of laryngeal cancer in the cancer center within 1-2 weeks of discharge. Continue tube feeds at 40ml/hr with 100ml water flushes every 4 hours Should any symptoms recur or worsen patient is instructed to return to the ED. Prescriptions/Referrals Prescriptions/Med Rec: New azithromycin 500 mg tablet See Rx Instructions .ROUTE .COMPLEX Qty: 3 0RF Rx Instructions: For 500 mg dose pack: take 500 mg once daily for 3 days Continued hydrocodone-acetaminophen 5-325 mg Tablet 1 tab PO Q6H PRN (Reason: Pain) Discontinued furosemide 20 mg Tablet 20 mg PO BID Referrals: Linda Mendosa FNP [Referring Provider] - Patient/Caregiver Discharge Instructions Other Discharge Diet Instructions: Home TF recommendation: Jevity 1.5 240mL 4x/day via PEG-tube, by syringe to provide: total volume 960mL, 1420 kcal, 60g PRO, 720 free water, 100 mL water flush after feeds. ? Prepare the formula: Ensure Jevity 1.5 (240mL) is at room temperature before feeding; discard any unused formula left at room temp for more than 4 hours. ? Feeding procedure: Administer via syringe, pushing slowly to avoid discomfort, and follow with a 100mL water flush after each feed. ? Tube and site care: Flush the PEG tube with water after every feed, monitor for any site issues, and clean feeding supplies thoroughly after each use. Education Materials: Bolus Tube Feeding, Understanding PEG Tube Feeding Print Language: Azeri Stand Alone Forms: Miya Award Info., Patient Portal Info Letter Discharge Order Discharge Orders: Discharge (Routine); Ordered 04/01/24 Ordered By: Chilo Abdullahi Quality Discharge Quality Measures VTE prophylaxis
--- NOTE | 2024-04-01 14:54 | PC.CM ---
dc summary and dc orders sent to [facility]. HH referral is complete.
== END 2024-04-01 11:48 | disposition home health service (06) | DRG 640 ==
LOC: SERX 15:25 → S3NX 03-28 06:40 → SERHOLD 03-28 09:16 → S3NX 03-28 09:18
PROVIDERS: Specialist; Student in an Organized Health Care Education/Training Program; Admitting Provider Internal Medicine; Emergency Provider Emergency Medicine; Visit Provider Internal Medicine
PROC: 0DH63UZ Insertion of Feeding Device into Stomach, Percutaneous Approach (ICD-10-PCS; CPT 43246; principal; 2024-03-29 16:00)
DX: R62.7 Adult failure to thrive (principal); J18.9 Pneumonia, unspecified organism; N18.4 Chronic kidney disease, stage 4 (severe); C34.90 Malignant neoplasm of unspecified part of unspecified bronchus or lung; J44.1 Chronic obstructive pulmonary disease with (acute) exacerbation; J44.0 Chronic obstructive pulmonary disease with (acute) lower respiratory infection; E11.22 Type 2 diabetes mellitus with diabetic chronic kidney disease; I12.9 Hypertensive chronic kidney disease with stage 1 through stage 4 chronic kidney disease, or unspecified chronic kidney disease; C32.1 Malignant neoplasm of supraglottis; F17.210 Nicotine dependence, cigarettes, uncomplicated; Z86.73 Personal history of transient ischemic attack (TIA), and cerebral infarction without residual deficits; Z90.710 Acquired absence of both cervix and uterus; Z90.49 Acquired absence of other specified parts of digestive tract; Z68.23 Body mass index [BMI] 23.0-23.9, adult
CPT/HCPCS: 36415; 70552; 71045; 80053; 81001; 83735; 83880; 84100; 84443; 85025; 85610; 85730; 87811; 92610; 94640; 99285; A4649; A9270; A9579; G0378; J0456; J0690; J1200; J1643; J1815; J2250; J3010; J3411; J7030; J7050

== ENCOUNTER → 2024-04-19 | Outpatient (CLI) | payer MEDICARE, MEDICAID, SELFPAY ==
--- NOTE | 2024-04-19 14:26 | XR_ITS ---
Examination: PA lateral chest 2 views TECHNIQUE: Upright PA lateral chest 2 views Exam date and time: April 19, 2024 1435 hours Comparison March 27, 2024 INDICATIONS: Diagnosis malignant neoplasm of the larynx FINDINGS: Abnormal hilar lymphadenopathy, please see the PET/CT scan report February 24, 2024 Bibasilar opacity consistent with pneumonia, with soft nodular opacities in both lungs Right internal jugular Port-A-Cath tip satisfactory position Prominent osteopenia Moderate bilateral pleural effusions IMPRESSION: Abnormal hilar lymphadenopathy, please see the PET/CT scan report February 24, 2024 Soft opacities in the lung cortés, please see the PET/CT scan report indicating bilateral metastatic pulmonary nodules Moderate bilateral pleural effusions Bibasilar pneumonia
== END | disposition home or self-care (01) ==
PROVIDERS: Referring Provider Internal Medicine Hematology & Oncology; Visit Provider Internal Medicine Hematology & Oncology
DX: J90 Pleural effusion, not elsewhere classified (principal); J18.9 Pneumonia, unspecified organism; C32.8 Malignant neoplasm of overlapping sites of larynx; C32.9 Malignant neoplasm of larynx, unspecified; C78.02 Secondary malignant neoplasm of left lung
CPT/HCPCS: 71046

== ENCOUNTER 2024-04-20 11:03 | Emergency (ER) | payer MEDICARE, MEDICAID, SELFPAY ==
[2024-04-20] VITALS (12 sets, daily range): BP systolic 131–154; BP diastolic 52–71; PULSE 77–91; RESP 17–20; TEMP 36.7–37.1; O2SAT 95–100; BMI 21.9
--- NOTE | 2024-04-20 11:21 | PD.EDRME ---
Rapid Medical Screening Exam RME Arrival date/time: 04/20/24 11:03 74-year-old female with a history of throat and lung cancer presents to the emergency room with a chief complaint of cough, fever, congestion x 1 week. Patient states she was sent over by her primary care provider for multiple pneumonia failed treatments. Patient presents with note from Dr. Franks stating that she has failed Levaquin, azithromycin treatments and wants the patient admitted. I have greeted and performed a focused initial assessment of this patient. A comprehensive ED assessment and evaluation of the patient, analysis of all test results, and completion of the medical decision making process will be conducted by additional ED providers. Chief Complaint: Flu Like Symptoms Vital signs reviewed by provider: Yes
[2024-04-20 11:54] LABS: Basophils % (Auto) 1 % (0-2.5); Eosinophils % (Auto) 0 % (0-10); Immature Granulocytes % (Auto) 0 % (0-0); Immature Granulocytes Auto 0.02 Thou/mm3 (0.00-0.00); Lymphocytes # (Auto) 1.3 Thou/mm3 (1.0-4.8); Lymphocytes % (Auto) 26 % (10-50); Mean Corpuscular Hemoglobin 25.6 pg (25.0-35.0); Mean Corpuscular Volume 85 fL (80-100); Monocytes # (Auto) 0.3 Thou/mm3 (0.0-0.8); Monocytes % (Auto) 6 % (0-12); Neutrophils # (Auto) 3.4 Thou/mm3 (1.8-7.7); Neutrophils % (Auto) 67 % (37-80); Nucleated Red Blood Cell % 0 /100 WBC (0); Platelet Count 259 Thou/mm3 (140-440); RDW Standard Deviation 52.6 fL (36.4-46.3); Red Blood Count 2.81 Miln/mm3 (4.00-5.20)
[2024-04-20 11:56] LABS: Hemoglobin 7.2 g/dL (12.0-16.0)
[2024-04-20 12:05] LABS: INR 1.1 (0.9-1.3); Partial Thromboplastin Time 27.2 Seconds (22.0-36.0); Prothrombin Time 11.5 Seconds (9.0-12.2)
[2024-04-20 12:11] LABS: Alanine Aminotransferase 10 U/L (10-49); Albumin, Serum 3.1 gm/dL (3.4-4.8); Albumin/Globulin Ratio 1.1 (1.2-2.2); Alkaline Phosphatase 71 U/L (46-116); Anion Gap 1 (7-16); Aspartate Amino Transferase 14 U/L (0-34); BUN/Creatinine Ratio 31 Ratio (12-20); Bilirubin,Total 0.2 mg/dL (0.3-1.2); Blood Urea Nitrogen 28 mg/dL (9-23); Calcium 8.4 mg/dL (8.3-10.6); Calcium (Corrected) 9.1 mg/dL (8.5-10.1); Carbon Dioxide 35.6 mMol/L (20.0-31.0); Chloride 104 mMol/L (98-107); Creatinine (Component) 0.9 mg/dL (0.6-1.3); Estimated Creatinine Clearance 42.7 mL/min (>60); Globulin 2.9 gm/dL (2.3-3.5); Glucose 132 mg/dL (74-106); Osmolality,Calculated 288 (275-295); Potassium 4.6 mMol/L (3.4-5.1); Sodium 141 mMol/L (136-145); eGFR > 60 See Note
--- NOTE | 2024-04-20 14:12 | PD.EDURI ---
Upper Respiratory Inf. RME/HPI General Chief Complaint: Flu Like Symptoms Stated Complaint: I HAVE PNEUMONIA Time Seen by Provider: 04/20/24 13:46 Arrival date/time: 04/20/24 11:03 RME / HPI RME / HPI Narrative: 74-year-old female with a history of throat and lung cancer presents to the emergency room with a chief complaint of cough, fever, congestion x 1 week. Patient states she was sent over by her primary care provider for multiple pneumonia failed treatments. Patient presents with note from Dr. Franks stating that she has failed Levaquin, azithromycin treatments and wants the patient admitted. Related Data Home Medications ?Medication ?Instructions ?Recorded ?Confirmed hydrocodone 5 mg-acetaminophen 325 1 tab PO Q6H PRN Pain 01/13/24 03/29/24 mg tablet Previous Rx's ?Medication ?Instructions ?Recorded azithromycin 500 mg tablet See Rx Instructions PO .COMPLEX #3 03/31/24 tabs amoxicillin 875 mg-potassium 1 tab PO BID #14 tabs 04/20/24 clavulanate 125 mg tablet Allergies Allergy/AdvReac Type Severity Reaction Status Date / Time No Known Allergies Allergy Verified 04/20/24 11:06 Review of Systems Review of Systems Narrative Review of Systems: Review of system reviewed and within normal limits except mentioned in HPI ED Exam Narrative Physical exam: VITAL SIGNS: Reviewed. GENERAL APPEARANCE: Alert and interactive, follows commands, no acute distress, HEAD AND FACE: Non-traumatic. ENT: PERRL, pink conjunctivitis, eyelid no trauma, Mucous membrane moist. NECK: Supple, nontender, no nuchal rigidity. CHEST: No tenderness, no crepitus, no paradoxical movement, no retractions. LUNGS: Clear, well ventilated, symmetric, no rales, no wheezing, no ronchi, no stridor, good breath sounds bilaterally. HEART: Regular rate, regular rhythm, no murmur, no gallops. ABDOMEN: Soft, positive bowel sounds, nondistended, no guarding, nontender, no rebound, no masses, RECTAL: Deferred. GENITAL: Deferred. NEUROLOGICAL: Gross motor function intact sensory function intact, Appropriate for age. MUSCULOSKELETAL: low back nontender, full range of motion. EXTREMITIES: Nontender, full range of motion. SKIN: Color pink, dry, no rash, no lacerations, no abrasions, no contusions. LYMPHATICS: Deferred. Course Quality Measures none Orders Category Date Time Status Transfuse,blood/blood products ONCE Care 04/20/24 14:07 Active Blood Culture (Lab) Stat Lab 04/20/24 14:50 Received CBC Stat Lab 04/20/24 11:23 Completed Comprehensive Metabolic Panel Stat Lab 04/20/24 11:23 Completed Magnesium Stat Lab 04/20/24 11:23 Completed Partial Thromboplastin Time Stat Lab 04/20/24 11:23 Completed Prothrombin Time with INR Stat Lab 04/20/24 11:23 Completed Type and Screen Stat Lab 04/20/24 14:25 Completed prbc [Red Blood Cells] Stat Lab 04/20/24 14:25 Completed Doxycycline Inj [Vibramycin Inj] 100 mg Med 04/20/24 14:11 Discontinued Sodium Chloride 0.9% (P) [NS 0.9% mini bag] 100 ml IV X1 cefTRIAXone/D5w 1gm IV premix [Rocephin/D5w 1gm IV Med 04/20/24 14:11 Discontinued premix] 50 ml IV X1 Vital Signs Vital signs: Vital Signs Temperature 98.6 F 04/20/24 11:20 Pulse Rate 89 04/20/24 11:20 Respiratory Rate 20 04/20/24 11:20 Blood Pressure 143/65 H 04/20/24 11:20 Pulse Oximetry (%) 98 04/20/24 11:20 Oxygen Delivery Method Nasal Cannula 04/20/24 11:20 Oxygen Flow Rate 3 04/20/24 11:20 Upper Respiratory Infection MDM Narrative MDM Narrative:: 74-year-old female with a history of throat and lung cancer presents to the emergency room with a chief complaint of cough, fever, congestion x 1 week. Patient states she was sent over by her primary care provider for multiple pneumonia failed treatments. Patient presents with note from Dr. Franks stating that she has failed Levaquin, azithromycin treatments and wants the patient admitted. Laboratory workup is significant for a hemoglobin of 7.2 hematocrit of 24. No leukocytosis noted. CMP came back unremarkable. Chest x-ray showed pneumonia that was done yesterday. Patient was started on Zithromax by her oncologist. I talked to oncologist, Dr. Naidu, discussed the case, and told me that patient is okay to go home after blood transfusion. Follow-up in his clinic this Wednesday. Patient appears nontoxic and hemodynamically stable. Patient discharged home and instructed to follow-up with primary care provider in 24 to 48 hours. Instructed to return to the emergency department immediately if worsening of symptoms Patient data External records reviewed:: None Clinical information provided by:: none Social determinants that could affect healthcare access:: other (specify) (Laryngeal cancer) Patient has the following chronic illnesses:: Laryngeal cancer How is presenting disease/condition affected by chronic disease/condition?: exacerbated by Evaluation data The following diagnostics were reviewed and interpreted by me:: lab results Lab and/or radiology exams considered but not ordered:: None Interpretation Summary: See results in MDM Medications / Prescriptions Medications or Prescriptions considered but not ordered:: None Medication administrations:: Medication Administration History Discontinued Medications Ceftriaxone Sodium/Dextrose (Rocephin/D5w 1gm Iv Premix) 50 mls @ 100 mls/hr IV X1 ONE Stop: 04/20/24 14:40 Last Infusion: 04/20/24 15:27 Dose: Infused Documented By: Admin: 04/20/24 14:56 Dose: 100 mls/hr Documented By: KAVIN Comments: MEDICATION WAS INFUSED TO IV TO LEFT AC, ERROR IN CHARTING. IV WAS INSERTED TO LEFT AC NOT RIGHT AC. Doxycycline Hyclate 100 mg/ (Sodium Chloride) 100 mls @ 100 mls/hr IV X1 ONE Stop: 04/20/24 15:10 Last Infusion: 04/20/24 16:48 Dose: Infused Documented By: Admin: 04/20/24 15:31 Dose: 100 mls/hr Documented By: KAVIN Doxycycline IV ceftriaxone IV. Patient received 2 units of packed RBC. Consultations Consultation(s) initiated? (list below): Yes Consultation #1 (Physician, Specialty, Details): Dr. Naidu patient's oncologist thank you Diagnosis Upper Respiratory Differential Diagnosis: upper respiratory infection and other (Pneumonia, dehydration, laryngeal cancer) Most likely diagnosis given after review of the tests above:: Pneumonia, anemia, history of laryngeal cancer Admission Indicated Admission indicated?: not indicated Admission Request Was there a request for admission?: No Disposition Plan Disposition Plan: Discharge Discharge Attestation Discharge Attestation: The patient and all family members were given an opportunity to ask questions and understood the discharge instructions. Discharge instructions specifically effects, indications for sooner follow up or return to the emergency department, and the expected course of current diagnosis. Patient condition: Stable Discharge Plan Plan Patient Disposition: HOME (Self Care) Disposition Comment: Stable Prescriptions/Referrals Prescriptions/Med Rec: New amoxicillin-pot clavulanate 875-125 mg tablet 1 tab PO BID Qty: 14 0RF No Action hydrocodone-acetaminophen 5-325 mg Tablet 1 tab PO Q6H PRN (Reason: Pain) azithromycin 500 mg tablet See Rx Instructions .ROUTE .COMPLEX Qty: 3 0RF Rx Instructions: For 500 mg dose pack: take 500 mg once daily for 3 days Referrals: Jelani Jackson([facility])MD [Primary Care Provider] - In 1 week Problem List Clinical Impression: Laryngeal cancer, Anemia, PNA (pneumonia) Patient/Caregiver Discharge Instructions Discharge Activity: activity as tolerated Education Materials: Anemia Additional Instructions: Thank you for the opportunity for serving you today. You are stable for discharged . You are advised to: Follow-up with your PCP in 1 to 2 days Return to ED for worsening of symptoms Take medication as prescribed Print Language: Citizen Of [place] Stand Alone Forms: Miya Award Info., Patient Portal Info Letter PA/SENDY Supervising Physician JANNETH/SENDY Supervising Physician: MD Renee
[2024-04-20] MEDS: cefTRIAXone/D5w 1gm IV premix 50 ML IV (14:56)
[2024-04-20] MEDS: DOXYCYCLINE INJ 100 MG in SODIUM CHLORIDE 0.9% (P) 100 ML IV (15:31)
--- NOTE | 2024-04-20 16:24 | PC.NURSE ---
BLOOD TRANSFUSION CONSENT OBTAIN, PATIENT VERBALIZED UNDERSTANDING OF RISKS AND BENEFITS.
== END 2024-04-20 23:25 | disposition home or self-care (01) ==
PROVIDERS: Nurse Practitioner Family; Emergency Provider Emergency Medicine; PCP Family Medicine
DX: J18.9 Pneumonia, unspecified organism (principal); C32.9 Malignant neoplasm of larynx, unspecified; D63.0 Anemia in neoplastic disease; Z87.01 Personal history of pneumonia (recurrent); Z85.118 Personal history of other malignant neoplasm of bronchus and lung
CPT/HCPCS: 36415; 36430; 80053; 83735; 85025; 85610; 85730; 86850; 86900; 86901; 86923; 87040; 96365; 96367; 99285; J0696; J3490; P9016

== ENCOUNTER → 2024-04-25 | Outpatient (CLI) | payer MEDICARE, MEDICAID, SELFPAY ==
--- NOTE | 2024-04-25 08:15 | XR_ITS ---
Examination: MRI of brain without intravenous contrast. MRI brain with intravenous contrast. Date and time of exam:April 25, 2024 0839 hours Comparison March 28, 2024 INDICATIONS: Diagnosis malignant neoplasm of overlapping sites of larynx, staging Technique: Multiple axial and sagittal images of the brain to been obtained. Siemens high-resolution 1.52 Sol short bore scanner utilized. Sagittal sections, T1 weighted images, TR 500, TE 14, are performed. Axial sections proton-density and T2-weighted images have been obtained. Inversion recovery axial images, TR 9260, TE 111, TR 2500. Diffusion weighted images, axial sections, TR 4800, TE 128, B value 1000. Axial sections, ADC map, TR 4800, TE 128. Axial and coronal images were also obtained post 10 cc gadolinium administered intravenously. Findings:: Enlargement of the sella turcica is not present. The optic chiasm and infundibular stalk are not remarkable. There is no localized enlargement of the medulla or chela. Fourth ventricle and cerebellar tonsils appear normal in position. No subacute area of hemorrhage density is seen. Fourth ventricle is midline. Mass in the cerebellopontine angle region is not evident. 7th and 8th nerve complexes exhibit symmetry Globes are symmetrical Orbital musculature including medial lateral rectus muscles do not exhibit abnormality Increased white matter signal is mild Effacement of the cortical sulcal markings is not identified. Mass effect upon the ventricular system is not identified. Diffusion-weighted images demonstrate no focus of restricted diffusion Contrast images demonstrate no abnormal enhancing cerebellar or cerebral lesions Impression: Negative for acute hemorrhage mass effect or midline shift No acute infarct Mild chronic microvascular white matter change No abnormal enhancing cerebellar or cerebral lesions
== END | disposition home or self-care (01) ==
PROVIDERS: PCP Nurse Practitioner; Referring Provider Internal Medicine Hematology & Oncology; Visit Provider Internal Medicine Hematology & Oncology
DX: R90.82 White matter disease, unspecified (principal); C32.8 Malignant neoplasm of overlapping sites of larynx; C32.9 Malignant neoplasm of larynx, unspecified
CPT/HCPCS: 70553; A9579

== ENCOUNTER 2024-06-02 07:41 | Outpatient (RCR) | payer MEDICARE, MEDICAID, SELFPAY ==
--- NOTE | 2024-05-08 10:10 | CTCTRTNOTE_ITS ---
[facility] [address] [place], [place] [address] Weekly Management Date: 05/08/2024 ?? Name: LEVI AIDEE Ledbetter.: 1950 A. Patient is currently at 1800 cGy. Larynx boost after getting 2200 to the head neck site previously. B. Patient is experiencing some mild mucositis. C. 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 D. Complete scheduled XRT to larynx 6 more fractions. Electronically signed by: Marko Duran M.D. 05/08/2024 10:08 AM
[2024-05-08 10:32] LABS: Basophils % (Auto) 0 % (0-2.5); Eosinophils % (Auto) 0 % (0-10); Hematocrit 20.6 % (36.0-46.0); Immature Granulocytes % (Auto) 0 % (0-0); Immature Granulocytes Auto 0.01 Thou/mm3 (0.00-0.00); Lymphocytes # (Auto) 1.8 Thou/mm3 (1.0-4.8); Lymphocytes % (Auto) 48 % (10-50); Mean Corpuscular HGB Conc 30.6 g/dl (31.0-37.0); Mean Corpuscular Hemoglobin 27.4 pg (25.0-35.0); Mean Corpuscular Volume 90 fL (80-100); Monocytes # (Auto) 0.4 Thou/mm3 (0.0-0.8); Monocytes % (Auto) 10 % (0-12); Neutrophils # (Auto) 1.5 Thou/mm3 (1.8-7.7); Neutrophils % (Auto) 42 % (37-80); Nucleated Red Blood Cell % 0 /100 WBC (0); Platelet Count 109 Thou/mm3 (140-440); White Blood Count 3.6 Thou/mm3 (3.6-11.0)
[2024-05-08 10:40] LABS: Hemoglobin 6.3 g/dL (12.0-16.0)
[2024-05-08 11:05] LABS: Alanine Aminotransferase 8 U/L (10-49); Albumin, Serum 3.4 gm/dL (3.4-4.8); Alkaline Phosphatase 96 U/L (46-116); Anion Gap 5 (7-16); Aspartate Amino Transferase 25 U/L (0-34); BUN/Creatinine Ratio 54 Ratio (12-20); Bilirubin,Total 0.4 mg/dL (0.3-1.2); Blood Urea Nitrogen 43 mg/dL (9-23); Calcium 8.7 mg/dL (8.3-10.6); Calcium (Corrected) 9.2 mg/dL (8.5-10.1); Carbon Dioxide 31.7 mMol/L (20.0-31.0); Chloride 102 mMol/L (98-107); Creatinine (Component) 0.8 mg/dL (0.6-1.3); Globulin 3.5 gm/dL (2.3-3.5); Glucose 186 mg/dL (74-106); Osmolality,Calculated 293 (275-295); Potassium 4.5 mMol/L (3.4-5.1); Sodium 139 mMol/L (136-145); Thyroid Stimulating Hormone 2.85 uIU/mL (0.55-4.78); Total Protein 6.9 gm/dL (5.7-8.2); eGFR > 60 See Note
[2024-05-08 14:19] LABS: Path Review Blood Smear Sent to Pathologist
[2024-05-10 09:41] LABS: Basophils % (Auto) 0 % (0-2.5); Eosinophils % (Auto) 0 % (0-10); Hematocrit 28.5 % (36.0-46.0); Immature Granulocytes % (Auto) 1 % (0-0); Immature Granulocytes Auto 0.02 Thou/mm3 (0.00-0.00); Lymphocytes % (Auto) 48 % (10-50); Mean Corpuscular HGB Conc 31.6 g/dl (31.0-37.0); Mean Corpuscular Hemoglobin 27.6 pg (25.0-35.0); Mean Corpuscular Volume 87 fL (80-100); Monocytes # (Auto) 0.5 Thou/mm3 (0.0-0.8); Monocytes % (Auto) 11 % (0-12); Neutrophils # (Auto) 1.7 Thou/mm3 (1.8-7.7); Neutrophils % (Auto) 41 % (37-80); Nucleated Red Blood Cell % 0 /100 WBC (0); Platelet Count 261 Thou/mm3 (140-440); RDW Standard Deviation 57.9 fL (36.4-46.3); Red Blood Count 3.26 Miln/mm3 (4.00-5.20); White Blood Count 4.1 Thou/mm3 (3.6-11.0)
[2024-05-30 09:17] LABS: Basophils % (Auto) 0 % (0-2.5); Eosinophils % (Auto) 0 % (0-10); Immature Granulocytes % (Auto) 1 % (0-0); Immature Granulocytes Auto 0.08 Thou/mm3 (0.00-0.00); Lymphocytes # (Auto) 1.3 Thou/mm3 (1.0-4.8); Lymphocytes % (Auto) 19 % (10-50); Mean Corpuscular HGB Conc 31.8 g/dl (31.0-37.0); Mean Corpuscular Hemoglobin 27.4 pg (25.0-35.0); Mean Corpuscular Volume 86 fL (80-100); Monocytes # (Auto) 0.7 Thou/mm3 (0.0-0.8); Monocytes % (Auto) 9 % (0-12); Neutrophils # (Auto) 4.9 Thou/mm3 (1.8-7.7); Neutrophils % (Auto) 70 % (37-80); Nucleated Red Blood Cell % 0 /100 WBC (0); Platelet Count 109 Thou/mm3 (140-440); RDW Standard Deviation 55.9 fL (36.4-46.3); Red Blood Count 2.26 Miln/mm3 (4.00-5.20); White Blood Count 6.9 Thou/mm3 (3.6-11.0)
[2024-05-30 09:20] LABS: Hemoglobin 6.2 g/dL (12.0-16.0)
[2024-05-30 09:21] LABS: Hematocrit 19.5 % (36.0-46.0)
[2024-05-30 09:47] LABS: Alanine Aminotransferase < 7 U/L (10-49); Albumin, Serum 3.5 gm/dL (3.4-4.8); Albumin/Globulin Ratio 1.1 (1.2-2.2); Alkaline Phosphatase 79 U/L (46-116); Anion Gap 5 (7-16); Aspartate Amino Transferase 12 U/L (0-34); BUN/Creatinine Ratio 41 Ratio (12-20); Bilirubin,Total 0.2 mg/dL (0.3-1.2); Blood Urea Nitrogen 33 mg/dL (9-23); Calcium 8.3 mg/dL (8.3-10.6); Calcium (Corrected) 8.7 mg/dL (8.5-10.1); Carbon Dioxide 28.9 mMol/L (20.0-31.0); Chloride 102 mMol/L (98-107); Creatinine (Component) 0.8 mg/dL (0.6-1.3); Globulin 3.3 gm/dL (2.3-3.5); Glucose 141 mg/dL (74-106); Osmolality,Calculated 281 (275-295); Potassium 4.5 mMol/L (3.4-5.1); Sodium 136 mMol/L (136-145); Thyroid Stimulating Hormone 1.75 uIU/mL (0.55-4.78); Total Protein 6.8 gm/dL (5.7-8.2); eGFR > 60 See Note
[2024-06-01 09:28] LABS: Hematocrit 29.3 % (36.0-46.0); Hemoglobin 10.1 g/dL (12.0-16.0)
== END 2024-06-05 23:59 | disposition home or self-care (01) ==
LOC: SCTC 07:41
PROVIDERS: Internal Medicine Hematology & Oncology; PCP Nurse Practitioner; Referring Provider Nurse Practitioner; Visit Provider Radiology Therapeutic Radiology
DX: Z51.0 Encounter for antineoplastic radiation therapy (principal); Z51.11 Encounter for antineoplastic chemotherapy; C32.8 Malignant neoplasm of overlapping sites of larynx; K12.33 Oral mucositis (ulcerative) due to radiation; Y84.2 Radiological procedure and radiotherapy as the cause of abnormal reaction of the patient, or of later complication, without mention of misadventure at the time of the procedure
CPT/HCPCS: 36430; 36591; 77336; 77385; 80053; 84443; 85014; 85018; 85025; 86850; 86900; 86901; 86923; 96367; 96413; 96417; A4216; J1453; J1642; J2405; J7040; J7050; J9022; J9045; J9181; P9016

== ENCOUNTER 2024-07-03 10:45 | Outpatient (RCR) | payer MEDICARE, MEDICAID, SELFPAY ==
[2024-06-12 07:48] LABS: Basophils % (Auto) 1 % (0-2.5); Eosinophils % (Auto) 0 % (0-10); Hematocrit 24.1 % (36.0-46.0); Immature Granulocytes % (Auto) 0 % (0-0); Lymphocytes # (Auto) 1.1 Thou/mm3 (1.0-4.8); Lymphocytes % (Auto) 44 % (10-50); Mean Corpuscular HGB Conc 33.2 g/dl (31.0-37.0); Mean Corpuscular Hemoglobin 28.7 pg (25.0-35.0); Mean Corpuscular Volume 86 fL (80-100); Monocytes # (Auto) 0.4 Thou/mm3 (0.0-0.8); Monocytes % (Auto) 14 % (0-12); Neutrophils % (Auto) 40 % (37-80); Nucleated Red Blood Cell % 0 /100 WBC (0); Platelet Count 135 Thou/mm3 (140-440); Red Blood Count 2.79 Miln/mm3 (4.00-5.20)
[2024-06-12 07:55] LABS: White Blood Count 2.4 Thou/mm3 (3.6-11.0)
[2024-06-12 08:21] LABS: Alanine Aminotransferase 8 U/L (10-49); Albumin, Serum 3.5 gm/dL (3.4-4.8); Alkaline Phosphatase 95 U/L (46-116); Anion Gap 5 (7-16); Aspartate Amino Transferase 15 U/L (0-34); BUN/Creatinine Ratio 64 Ratio (12-20); Bilirubin,Total 0.3 mg/dL (0.3-1.2); Blood Urea Nitrogen 51 mg/dL (9-23); Calcium 8.6 mg/dL (8.3-10.6); Chloride 100 mMol/L (98-107); Creatinine (Component) 0.8 mg/dL (0.6-1.3); Globulin 3.5 gm/dL (2.3-3.5); Glucose 141 mg/dL (74-106); Osmolality,Calculated 289 (275-295); Potassium 4.3 mMol/L (3.4-5.1); Sodium 137 mMol/L (136-145); eGFR > 60 See Note
[2024-06-20 09:36] LABS: Basophils % (Auto) 1 % (0-2.5); Eosinophils % (Auto) 0 % (0-10); Hematocrit 22.6 % (36.0-46.0); Immature Granulocytes % (Auto) 0 % (0-0); Immature Granulocytes Auto 0.01 Thou/mm3 (0.00-0.00); Lymphocytes # (Auto) 1.6 Thou/mm3 (1.0-4.8); Lymphocytes % (Auto) 40 % (10-50); Mean Corpuscular HGB Conc 33.6 g/dl (31.0-37.0); Mean Corpuscular Volume 86 fL (80-100); Monocytes # (Auto) 0.7 Thou/mm3 (0.0-0.8); Monocytes % (Auto) 16 % (0-12); Neutrophils # (Auto) 1.7 Thou/mm3 (1.8-7.7); Neutrophils % (Auto) 43 % (37-80); Nucleated Red Blood Cell % 0 /100 WBC (0); Platelet Count 85 Thou/mm3 (140-440); RDW Standard Deviation 52.7 fL (36.4-46.3); Red Blood Count 2.62 Miln/mm3 (4.00-5.20)
[2024-06-20 09:46] LABS: Hemoglobin 7.6 g/dL (12.0-16.0)
[2024-06-20 10:12] LABS: Alanine Aminotransferase 9 U/L (10-49); Albumin, Serum 3.7 gm/dL (3.4-4.8); Albumin/Globulin Ratio 1.1 (1.2-2.2); Alkaline Phosphatase 75 U/L (46-116); Anion Gap 5 (7-16); Aspartate Amino Transferase 18 U/L (0-34); BUN/Creatinine Ratio 40 Ratio (12-20); Bilirubin,Total 0.4 mg/dL (0.3-1.2); Blood Urea Nitrogen 32 mg/dL (9-23); Calcium 8.7 mg/dL (8.3-10.6); Calcium (Corrected) 8.9 mg/dL (8.5-10.1); Carbon Dioxide 27.9 mMol/L (20.0-31.0); Chloride 106 mMol/L (98-107); Creatinine (Component) 0.8 mg/dL (0.6-1.3); Globulin 3.5 gm/dL (2.3-3.5); Glucose 120 mg/dL (74-106); Osmolality,Calculated 285 (275-295); Potassium 4.4 mMol/L (3.4-5.1); Sodium 139 mMol/L (136-145); Thyroid Stimulating Hormone 3.73 uIU/mL (0.55-4.78); Total Protein 7.2 gm/dL (5.7-8.2); eGFR > 60 See Note
[2024-06-26 12:37] LABS: Basophils # (Auto) 0.1 Thou/mm3 (0.0-0.2); Basophils % (Auto) 1 % (0-2.5); Eosinophils % (Auto) 0 % (0-10); Hematocrit 29.1 % (36.0-46.0); Hemoglobin 9.8 g/dL (12.0-16.0); Immature Granulocytes % (Auto) 0 % (0-0); Immature Granulocytes Auto 0.03 Thou/mm3 (0.00-0.00); Lymphocytes # (Auto) 1.5 Thou/mm3 (1.0-4.8); Lymphocytes % (Auto) 19 % (10-50); Mean Corpuscular HGB Conc 33.7 g/dl (31.0-37.0); Mean Corpuscular Hemoglobin 29.8 pg (25.0-35.0); Mean Corpuscular Volume 88 fL (80-100); Monocytes # (Auto) 0.7 Thou/mm3 (0.0-0.8); Monocytes % (Auto) 9 % (0-12); Neutrophils # (Auto) 5.7 Thou/mm3 (1.8-7.7); Neutrophils % (Auto) 71 % (37-80); Nucleated Red Blood Cell % 0 /100 WBC (0); Platelet Count 234 Thou/mm3 (140-440); RDW Standard Deviation 64.4 fL (36.4-46.3); Red Blood Count 3.29 Miln/mm3 (4.00-5.20)
[2024-06-26 12:42] LABS: Alanine Aminotransferase 12 U/L (10-49); Albumin, Serum 3.6 gm/dL (3.4-4.8); Alkaline Phosphatase 82 U/L (46-116); Anion Gap 3 (7-16); Aspartate Amino Transferase 20 U/L (0-34); BUN/Creatinine Ratio 28 Ratio (12-20); Bilirubin,Total 0.4 mg/dL (0.3-1.2); Blood Urea Nitrogen 25 mg/dL (9-23); Calcium 8.9 mg/dL (8.3-10.6); Calcium (Corrected) 9.2 mg/dL (8.5-10.1); Chloride 106 mMol/L (98-107); Creatinine (Component) 0.9 mg/dL (0.6-1.3); Globulin 3.5 gm/dL (2.3-3.5); Glucose 222 mg/dL (74-106); Osmolality,Calculated 290 (275-295); Potassium 4.1 mMol/L (3.4-5.1); Sodium 140 mMol/L (136-145); Thyroid Stimulating Hormone 1.95 uIU/mL (0.55-4.78); Total Protein 7.1 gm/dL (5.7-8.2); eGFR > 60 See Note
[2024-07-03 12:05] LABS: Basophils % (Auto) 1 % (0-2.5); Eosinophils % (Auto) 1 % (0-10); Hematocrit 26.6 % (36.0-46.0); Immature Granulocytes % (Auto) 0 % (0-0); Immature Granulocytes Auto 0.02 Thou/mm3 (0.00-0.00); Lymphocytes # (Auto) 1.4 Thou/mm3 (1.0-4.8); Lymphocytes % (Auto) 27 % (10-50); Mean Corpuscular HGB Conc 33.1 g/dl (31.0-37.0); Mean Corpuscular Volume 91 fL (80-100); Monocytes # (Auto) 0.1 Thou/mm3 (0.0-0.8); Monocytes % (Auto) 1 % (0-12); Neutrophils # (Auto) 3.6 Thou/mm3 (1.8-7.7); Neutrophils % (Auto) 70 % (37-80); Nucleated Red Blood Cell % 0 /100 WBC (0); Platelet Count 295 Thou/mm3 (140-440); RDW Standard Deviation 67.7 fL (36.4-46.3); Red Blood Count 2.93 Miln/mm3 (4.00-5.20); White Blood Count 5.1 Thou/mm3 (3.6-11.0)
[2024-07-03 12:09] LABS: Alanine Aminotransferase 19 U/L (10-49); Albumin, Serum 3.8 gm/dL (3.4-4.8); Albumin/Globulin Ratio 1.1 (1.2-2.2); Alkaline Phosphatase 77 U/L (46-116); Anion Gap 3 (7-16); Aspartate Amino Transferase 25 U/L (0-34); BUN/Creatinine Ratio 49 Ratio (12-20); Bilirubin,Total 0.3 mg/dL (0.3-1.2); Blood Urea Nitrogen 39 mg/dL (9-23); Calcium 8.9 mg/dL (8.3-10.6); Calcium (Corrected) 9.1 mg/dL (8.5-10.1); Carbon Dioxide 31.9 mMol/L (20.0-31.0); Chloride 102 mMol/L (98-107); Creatinine (Component) 0.8 mg/dL (0.6-1.3); Globulin 3.4 gm/dL (2.3-3.5); Glucose 159 mg/dL (74-106); Osmolality,Calculated 286 (275-295); Potassium 4.5 mMol/L (3.4-5.1); Sodium 137 mMol/L (136-145); Total Protein 7.2 gm/dL (5.7-8.2); eGFR > 60 See Note
[2024-07-03 12:15] LABS: Hemoglobin 8.8 g/dL (12.0-16.0)
== END 2024-07-05 23:59 | disposition home or self-care (01) ==
LOC: SCTC 10:45
PROVIDERS: Internal Medicine Hematology & Oncology; PCP Nurse Practitioner; Referring Provider Nurse Practitioner; Visit Provider Radiology Therapeutic Radiology
DX: Z51.11 Encounter for antineoplastic chemotherapy (principal); C32.8 Malignant neoplasm of overlapping sites of larynx
CPT/HCPCS: 36430; 36591; 80053; 84443; 85025; 86850; 86900; 86901; 86923; 96367; 96413; 96417; A4216; J1453; J1642; J2405; J7040; J7050; J9022; J9045; J9181; P9016

== ENCOUNTER 2024-07-19 13:45 | Emergency (ER) | payer MEDICARE, MEDICAID, SELFPAY ==
[2024-07-19 14:15] VITALS: BP 101/48; PULSE 75; RESP 20; TEMP 36.9; O2SAT 100; BMI 16.9
--- NOTE | 2024-07-19 14:27 | XR_ITS ---
Examination: CT pelvis without intravenous contrast. 2-D sagittal and coronal reconstructions. Date and time of exam:July 19, 2024 1442 hours INDICATIONS: Onset pelvic pain today CTDI: vol (mGy) :4.50 DLP: (mGycm) : 140 Technique: Multiple 3 mm axial sections of the pelvis have been obtained with the 64 slice high resolution scanner. 2-D sagittal and coronal reconstructions. Low dose protocols were performed. One or more of the following dose reduction techniques were used; automated exposure control, adjustment of the mA and/or KV according to patient size, use of iterative reconstruction technique. 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
--- NOTE | 2024-07-19 14:27 | XR_ITS ---
Examination: CT lumbar spine, without contrast. 2-D sagittal reconstructions. 2-D coronal reconstructions. 3-D reconstructions. Date and time of exam:July 19, 2024 1450 hours INDICATIONS: Patient fell today with injury to the lower back, lower back pain CTDI: vol (mGy):12.1 DLP: (mGycm):131 Technique: Multiple 1.25 mm axial sections of the lumbar spine without intravenous contrast have been obtained. 2-D sagittal and coronal reconstructions have been obtained. 3-D reconstructions have been obtained. Low dose protocols were performed. One or more of the following dose reduction techniques were used; automated exposure control, adjustment of the mA and/or KV according to patient size, use of iterative reconstruction technique. Findings: Severe osteopenia Lumbar fusion L3-L5 with satisfactory alignment Nodular parenchymal disease left lower lobe for instance axial image 15 Lumbar pedicles, laminae, transverse and posterior spinous processes appear intact Osteolytic right sacral lesion noted on the CT pelvis study No focal lumbar disc protrusion IMPRESSION: No lumbar fracture Please see the CT pelvis report today with description of osteolytic right sacral lesion
--- NOTE | 2024-07-19 14:29 | EDRME_ITS ---
Rapid Medical Screening Exam [facility] Arrival date/time: 07/19/24 13:45 74-year-old female presents emergency department today for complaint of lower back pain after fall Chief Complaint: Shortness of Breath/Dyspnea Vital signs: Vital Signs Temperature 98.4 F 07/19/24 14:15 Pulse Rate 75 07/19/24 14:15 Respiratory Rate 20 07/19/24 14:15 Blood Pressure 101/48 L 07/19/24 14:15 Pulse Oximetry (%) 100 07/19/24 14:15 Oxygen Delivery Method Nasal Cannula 07/19/24 14:15 Oxygen Flow Rate 2 07/19/24 14:15
[2024-07-19] MEDS: HYDROcodone/APAP 5/325 TABLET 1 TAB PO (14:59)
[2024-07-19 15:47] VITALS: BP 138/56; PULSE 71; RESP 20; TEMP 36.7; O2SAT 97
--- NOTE | 2024-07-19 16:00 | EDNOTE_ITS ---
<Statement entered by Remedios Jeff MD - 09/26/24 04:08> As co-signing physician, I was present and available for consult prn. I concur with the plan and care as documented by the midlevel provider. ED General RME/HPI General Chief complaint: Shortness of Breath/Dyspnea Stated complaint: Shortness of breath Arrival date/time: 07/19/24 13:45 RME / HPI RME / HPI narrative: 07/19/24 13:45 74-year-old female presents emergency department today for complaint of lower back pain after fall. She has a history of Metastatic Laryngeal Cancer. She was seen in [facility] where imaging studies were ordered. 16:00: This provider evauates these results for disposition of the patient. Related Data Home Medications ?Medication ?Instructions ?Recorded ?Confirmed hydrocodone 5 mg-acetaminophen 325 1 tab PO Q6H PRN Pa in 01/13/24 03/29/24 mg tablet Previous Rx's ?Medication ?Instructions ?Recorded azithromycin 500 mg tablet See Rx Instructions PO .COM PLEX #3 03/31/24 tabs amoxicillin 875 mg-potassium 1 tab PO BID #14 tabs clavulanate 125 mg tablet Allergies Allergy/AdvReac Type Severity Reaction Status Date / Time No Known Allergies Allergy Verified 07/19/24 13:49 Review of Systems Review of Systems Systems Reviewed: All systems reviewed, normal except as documented Past Medical History Past Medical History NEUROLOGIC: Positive Cerebrovascular Accident ([facility] 2023); Negative Neurological Disorders or Seizures CARDIAC: Positive Cardiac Disorders, Myocardial Infarction, Coronary Artery Disease, Peripheral Vascular Disease and Hypercholesterolemia; Negative Congestive Heart Failure RESPIRATORY: Positive Chronic Obstructive Pulmonary Disease (COPD) (PER PATIENT) and Asthma GASTROINTESTINAL: Negative Gastrointestinal Disorders or Hepatitis GENITOURINARY: Positive Genitourinary Disorders and Renal Disease; Negative Dialysis REPRODUCTIVE: Positive Previous Pregnancies MUSCULOSKELETAL: Positive Musculoskeletal Disorders, Arthritis and Fractures ENT: Positive Cataracts ENDOCRINE: Positive Endocrine Disorders and Diabetes Mellitus Type 2; Negative Diabetes Mellitus Type 1 HEMATOLOGIC: Negative Blood Disorders PSYCHO/SOCIAL: Positive Depression OTHER HISTORY: Positive Falls, Chemotherapy, Radiation Therapy, Chicken Pox, Cancer and Lung Cancer; Negative Hospitalization (March for CVA,), Autoimmune Disease, Shingles, Blood Transfusions or Anesthesia Reactions Family History FAMILY HISTORY: Positive Family Cancer and Family Surgery; Negative Family Psychiatric Problems, Family Respiratory Disorders, Family Cardiac Disorders, Family Gastrointestinal Problems or Family Anesthesia Reaction Surgical History SURGICAL: Positive Vascular Surgery, Coronary Stent, Cardiac Catheterization and Hysterectomy; Negative Pacemaker Social History SMOKING STATUS: Light (< 1 pack/day) ED Exam Narrative Physical exam: A&O, afebrile and thin and cachectic appearing 74 year old female, moderate acute pain distress. Lung are clear, RRR, Abdomen is soft, non-distended, and non-tender.No pain with AP or lateral chest compression. Cervical and thoracic spine without spinal or paraspinal tenderness. Lumbar spine with spinal and paraspinal tenderness bilaterally. No step-off noted. CMS intact to 4 extremities. Moves all extremities well. Course Course Course Narrative: Patient was initially given [place] 5mg PO. CT Pelvis wo Con reveals: No acute hip or pelvic fracture. 13 mm osteolytic lesion right sacrum, recommend elective MRI pelvis pre and post contrast follow- up. CT Lumbar spine reveals: No lumbar fracture. Patient was given Hydromorphone 2mg PO x1 prior to discharge. Quality Measures none Orders Category Date Time Status CT lumbar spine wo con Stat Exams 07/19/24 14:[address] pelvis wo con Stat Exams 07/19/24 14:27 Completed HYDROcodone*/APAP 5/325 [[place] 5/325] Med 07/19/24 14:28 Discontinued 1 tab PO X1 ONE Hydromorphone HCl [Dilaudid] Med 07/19/24 16:04 Discontinued 2 mg PO X1 ONE Vital Signs Vital signs: Vital Signs Temperature 98.4 F 07/19/24 14:15 Pulse Rate 75 07/19/24 14:15 Respiratory Rate 20 07/19/24 14:15 Blood Pressure 101/48 L 07/19/24 14:15 Pulse Oximetry (%) 100 07/19/24 14:15 Oxygen Delivery Method Nasal Cannula 07/19/24 14:15 Oxygen Flow Rate 2 07/19/24 14:15 Discharge Plan Plan Patient Disposition: HOME (Self Care) Discharge Disposition comment: Stable Prescriptions/Referrals Prescriptions/Med Rec: No Action amoxicillin-pot clavulanate 875-125 mg tablet 1 tab PO BID Qty: 14 0RF hydrocodone-acetaminophen 5-325 mg Tablet 1 tab PO Q6H PRN (Reason: Pain) azithromycin 500 mg tablet See Rx Instructions .ROUTE .COMPLEX Qty: 3 0RF Rx Instructions: For 500 mg dose pack: take 500 mg once daily for 3 days Referrals: No Primary/Family,Physician [Primary Care Provider] - In 1 week Problem List Clinical Impression: Osteolytic lesion due to metastasis Patient/Caregiver Discharge Instructions Education Materials: Understanding Bone Metastasis Additional Instructions: Follow-up with your oncologist tomorrow. Follow-up with your primary care physician in 24 to 48 hours. Return to the ED for any new or worsening symptoms. Print Language: [place] Stand Alone Forms: Miya Award Info., Patient Portal Info Letter PA/EKG MONITOR Supervising Physician PA/EKG MONITOR Supervising Physician: Dr. Randee SLOAN Narrative [facility] hospital course: 74-year-old female presents emergency department today for complaint of lower back pain after fall. She has a history of Metastatic Laryngeal Cancer. She was seen in [facility] where imaging studies were ordered. 16:00: This provider evauates these results for disposition of the patient. A&O, afebrile and thin and cachectic appearing 74 year old female, moderate acute pain distress. Lung are clear, RRR, Abdomen is soft, non-distended, and non-tender.No pain with AP or lateral chest compression. Cervical and thoracic spine without spinal or paraspinal tenderness. Lumbar spine with spinal and paraspinal tenderness bilaterally. No step-off noted. CMS intact to 4 extremities. Moves all extremities well. Patient was initially given [place] 5mg PO. CT Pelvis wo Con reveals: No acute hip or pelvic fracture. 13 mm osteolytic lesion right sacrum, recommend elective MRI pelvis pre and post contrast follow- up. CT Lumbar spine reveals: No lumbar fracture. Patient was given Hydromorphone 2mg PO x1 prior to discharge. Symptoms, exam and diagnostic studies are consistent with: Lumbar contusion without fracture. Metastatic Osteolytic lesions of the sacrom. Patient was discharged home in stable condition. Patient/family advised to follow-up with Oncologist tomorrow and PCP in 24-48 hours. Encouraged to return to the ED for any new or worsening symptoms. Clinical Information Provided by patient Medical Records Reviewed [facility] Meds/Rx Considered, not Ordered None Labs/Rad/Tests considered, not Ordered None Chronic Illness/Social Conditions which may negatively complicate care or outcome(s)-explain: Cancer EKG EKG not done Lab Interpretation Labs: none Imaging Imaging interpretation: see narrative above Radiology reports / interpretation(s): as above Medication Administration(s) Medication Administration History Discontinued Medications Hydrocodone Bitart/Acetaminophen (Hydrocodone/Apap 5/325 Tablet) 1 tab PO X1 ONE Stop: 07/19/24 14:29 Last Admin: 07/19/24 14:59 Dose: 1 tab Documented By: Hydromorphone HCl (Hydromorphone Hcl 2 Mg Tablet) 2 mg PO X1 ONE Stop: 07/19/24 16:05 Last Admin: 07/19/24 16:25 Dose: 2 mg Documented By: ISAMAR as above. Diagnosis Differential diagnosis: Lumbar fracture, pelvic fracture, hip fracture, lumbar contusion Differential dx and/or dx ruled out: No fractures Most likely dx, and/or detailed dx discussion: Lumbar contusion as well as metastatic osteolytic lesion noted to the sacrum. Dispositon Disposition: Discharge Home Disposition comments: Patient is stable for discharge.
[2024-07-19] MEDS: HYDROMORPHONE HCL 2 MG TABLET PO (16:25)
== END 2024-07-19 16:28 | disposition home or self-care (01) ==
PROVIDERS: Emergency Provider Emergency Medicine
DX: M89.58 Osteolysis, other site (principal); S39.92XA Unspecified injury of lower back, initial encounter; C79.89 Secondary malignant neoplasm of other specified sites; C32.9 Malignant neoplasm of larynx, unspecified; X58.XXXA Exposure to other specified factors, initial encounter
CPT/HCPCS: 72131; 72192; 99284; A9270

== ENCOUNTER 2024-08-04 10:17 | Outpatient (RCR) | payer MEDICARE, MEDICAID, SELFPAY ==
[2024-07-18 14:59] LABS: Basophils % (Auto) 0 % (0-2.5); Eosinophils % (Auto) 0 % (0-10); Hematocrit 22.5 % (36.0-46.0); Immature Granulocytes % (Auto) 0 % (0-0); Immature Granulocytes Auto 0.01 Thou/mm3 (0.00-0.00); Lymphocytes # (Auto) 1.2 Thou/mm3 (1.0-4.8); Lymphocytes % (Auto) 33 % (10-50); Mean Corpuscular HGB Conc 34.7 g/dl (31.0-37.0); Mean Corpuscular Hemoglobin 31.2 pg (25.0-35.0); Mean Corpuscular Volume 90 fL (80-100); Monocytes # (Auto) 0.4 Thou/mm3 (0.0-0.8); Monocytes % (Auto) 10 % (0-12); Neutrophils % (Auto) 56 % (37-80); Nucleated Red Blood Cell % 0 /100 WBC (0); Platelet Count 123 Thou/mm3 (140-440); RDW Standard Deviation 71.3 fL (36.4-46.3); White Blood Count 3.7 Thou/mm3 (3.6-11.0)
[2024-07-18 15:01] LABS: Hemoglobin 7.8 g/dL (12.0-16.0)
[2024-07-18 15:24] LABS: Alanine Aminotransferase 10 U/L (10-49); Albumin/Globulin Ratio 1.2 (1.2-2.2); Alkaline Phosphatase 70 U/L (46-116); Anion Gap 3 (7-16); Aspartate Amino Transferase 15 U/L (0-34); BUN/Creatinine Ratio 43 Ratio (12-20); Bilirubin,Total 0.3 mg/dL (0.3-1.2); Blood Urea Nitrogen 43 mg/dL (9-23); Calcium 8.9 mg/dL (8.3-10.6); Calcium (Corrected) 8.9 mg/dL (8.5-10.1); Carbon Dioxide 28.8 mMol/L (20.0-31.0); Chloride 102 mMol/L (98-107); Globulin 3.3 gm/dL (2.3-3.5); Glucose 204 mg/dL (74-106); Osmolality,Calculated 285 (275-295); Potassium 4.6 mMol/L (3.4-5.1); Sodium 134 mMol/L (136-145); Thyroid Stimulating Hormone 3.28 uIU/mL (0.55-4.78); Total Protein 7.3 gm/dL (5.7-8.2); eGFR 59 See Note
[2024-07-25 16:19] LABS: Basophils % (Auto) 1 % (0-2.5); Eosinophils % (Auto) 0 % (0-10); Hematocrit 28.5 % (36.0-46.0); Hemoglobin 9.7 g/dL (12.0-16.0); Immature Granulocytes % (Auto) 1 % (0-0); Immature Granulocytes Auto 0.06 Thou/mm3 (0.00-0.00); Lymphocytes # (Auto) 0.6 Thou/mm3 (1.0-4.8); Lymphocytes % (Auto) 7 % (10-50); Mean Corpuscular Hemoglobin 31.1 pg (25.0-35.0); Mean Corpuscular Volume 91 fL (80-100); Monocytes # (Auto) 0.7 Thou/mm3 (0.0-0.8); Monocytes % (Auto) 8 % (0-12); Neutrophils # (Auto) 7.4 Thou/mm3 (1.8-7.7); Neutrophils % (Auto) 84 % (37-80); Nucleated Red Blood Cell % 0 /100 WBC (0); Platelet Count 338 Thou/mm3 (140-440); Red Blood Count 3.12 Miln/mm3 (4.00-5.20); White Blood Count 8.8 Thou/mm3 (3.6-11.0)
[2024-07-25 16:35] LABS: Alanine Aminotransferase 14 U/L (10-49); Albumin/Globulin Ratio 1.2 (1.2-2.2); Alkaline Phosphatase 81 U/L (46-116); Anion Gap 8 (7-16); Aspartate Amino Transferase 19 U/L (0-34); BUN/Creatinine Ratio 44 Ratio (12-20); Bilirubin,Total 0.4 mg/dL (0.3-1.2); Blood Urea Nitrogen 44 mg/dL (9-23); Calcium 8.6 mg/dL (8.3-10.6); Calcium (Corrected) 8.6 mg/dL (8.5-10.1); Carbon Dioxide 27.4 mMol/L (20.0-31.0); Chloride 100 mMol/L (98-107); Globulin 3.3 gm/dL (2.3-3.5); Glucose 189 mg/dL (74-106); Osmolality,Calculated 286 (275-295); Potassium 4.7 mMol/L (3.4-5.1); Sodium 135 mMol/L (136-145); Thyroid Stimulating Hormone 1.65 uIU/mL (0.55-4.78); Total Protein 7.3 gm/dL (5.7-8.2); eGFR 59 See Note
--- NOTE | 2024-08-01 23:26 | CTCFLWUP_ITS ---
Patient: DIANA TIERNEY : 1950 Page 6 of 6 FOLLOW UP NOTE DATE OF SERVICE: 07/25/2024 NAME: DIANA TIERNEY ACCOUNT: [id number] : 1950 AGE: 74 INTERVAL HISTORY: Subjective: Chief Complaint Nausea and vomiting, weakness and difficulty walking for 4 days, cold sensation History of Present Illness Diana Tierney, a 74-year-old female with stage four laryngeal cancer and a history of pulmonary embolism, presents with nausea, vomiting, and weakness. The patient reports experiencing nausea and vomiting for the first time today, having thrown up 3-4 times this morning despite taking anti-nausea medication before coming to the clinic. The patient has been experiencing significant weakness, stating she hasn't been out of bed for about 4 days due to her legs giving way. She reports almost falling when attempting to get out of bed. This weakness has significantly impacted her daily functioning and mobility. Diana has completed 5 cycles of chemotherapy and is currently on blood thinners (Eliquis) for her pulmonary embolism. She reports experiencing cold sensations and mentions hair loss as a side effect of her treatment, though she's been informed that her hair will likely grow back. Regarding her weight, the patient reports fluctuations due to her nausea and vomiting. She states that she gains weight but then loses it when she starts throwing up. The patient confirms taking her anti-nausea medications (Zofran and Compazine) 3-4 times a day as prescribed. Diana is a former smoker but reports that she no longer smokes. Medications and Supplements - Zofran - Taken before coming to the appointment, but patient threw up since arriving. - Has dissolvable form at home. - Compazine - Taking after breakfast, lunch, and dinner. - Eliquis - Placed on this medication for pulmonary embolism. Review of Systems General: Positive for fatigue, weakness, and weight fluctuations. HEENT: Positive for hair loss. Cardiovascular: Positive for feeling cold. Gastrointestinal: Positive for nausea and vomiting. Musculoskeletal: Positive for leg weakness, difficulty walking. Objective: Laboratory, Imaging, and Diagnostic Test Results - CT scan: - Negative for major findings - Small lesion in the right sacrum - No lumbar fractures - No periosteolytic right sacral lesion noted - Brain scan: Normal - CT scan of chest, abdomen, pelvis: - No cancer detected - Small lesion in the pelvis (unknown if cancerous) - MRI brain: Recently performed (specific date not mentioned) ONCOLOGY HISTORY: DIAGNOSIS: Malignant neoplasm of overlapping sites of larynx [ICD10] C32.8; Malignant neoplasm of larynx, unspecified [ICD10] C32.9 DATE OF DIAGNOSIS: 12/29/2023 STAGE/TNM: IVB TX N2c M0 TREATMENT HISTORY: Care?Plan Start?Date Cycle Day Intent Carboplatin?70mg/m2?/?5fU?600mg/m2/day?x?4D?with?Radiation 03/28/2024 1 Palliative Carbo,?Etoposide?NSCLC 04/18/202403 28 Palliative 2?Small?cell,?Atezo?maintenanc?[id number]?study 04/18/2024 1 Palliative HISTORY OF PRESENT ILLNESS: 74-year-old female who is a current smoker with at least half pack a day is here for establishing care. Patient says that she started noticing change in her voice as well as difficulty swallowing for about 1 and half year. She is has been investigated extensively and was not found to have any cancer until recently when she had a diagnosis of laryngeal cancer. She would like to preserve her voice and do not want surgical intervention. Patient will like to have more conservative treatment with chemotherapy and radiation. Patient have a boyfriend who will be helping Ms. Tierney and do not have any immediate family to support her during her treatment. OTHER MEDICAL HISTORY/CONDITIONS: METASTATIC CARCINOMA LEFT NECK LYMPH NODE - 12/28/23 UTERINE CANCER - AGE 18 COPD DIABETES HYPERLIPIDEMIA AZ - 10 YRS AGO CVA - MAR 2023 PVD CKD VENOUS STENTS VASILE GROIN - 6 MONTHS AGO RIGHT SHOULDER ROTATOR CUFF REPAIR - 6YRS AGO BACK SURGERY X 2 - 2018; 2019 CORONARY STENT X 1 - 10 YRS AGO CHOLECYSTECTOMY - 8 YRS AGO ABD HYSTRECTOMY; PARTIAL OPHORECTOMY - AGE 18 FAMILY HISTORY: Mother:?STOMACH SOCIAL HISTORY: Occupational?History:?SY[employer]ENT [employer]?/?[employer] Education?Level:?Completed 8th grade Marital?Status:? 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 atorvastatin - 40 mg 1 tab Daily 2. azithromycin - 250 mg 250 mg Daily 3. Compazine - 10 mg 1 tab Every 6 Hours 4. Compazine - 10 mg 1 tab 1 tab every 6 hrs as needed for nausea 5. Effexor XR - 75 mg Daily 6. hydrochlorothiazide - 25 mg Daily 7. HYDROcodone-acetaminophen - 10-325 mg 1 tab Every 6 Hours 8. Jardiance - 25 mg 1 tab Daily 9. Lasix - 20 mg Daily 10. Lidocaine Viscous - 2 % 10 mL Daily 11. Lipitor - 40 mg Daily 12. lisinopril - 2.5 mg Daily 13. Maalox Advanced - 200-200-20 mg/5 mL 20 mL Daily 14. Mouthwash - As directed 15. nystatin - 100,000 unit/mL 10 mL Daily 16. ondansetron - 8 mg 1 tab every 8 hras / before meals as needed for nausea 17. Pepcid - 20 mg Daily 18. Protonix - 40 mg Daily 19. Senna Plus - 8.6-50 mg 1 Capsule Twice a Day 20. Singulair - 10 mg Daily 21. Vitamin D - 5,000 unit 1 tab Daily 22. Zofran - 8 mg 8 mg three times a day prn nausea 23. Zofran - 8 mg 1 tab Every 8 Hours Medications Last Reconciled by Latonya Mark MA on 07/25/2024 ALLERGIES: No Known Drug Allergies REVIEW OF SYSTEMS: A complete 14-point review of systems was performed and is negative except as noted in interval history. PHYSICAL EXAMINATION: VITAL SIGNS: Temperature?98.1, B/P?119/53, Oxygen?Saturation?93% PAIN: 3 - Between mild and moderate pain ECOG Performance Status: 2 - Symptomatic; ambulatory; capable of self-care; >50% of waking hrs. not in bed GENERAL APPEARANCE: Appears well, in no apparent distress, appropriately interactive. HEENT: Normocephalic, no temporal wasting, normal conjunctiva, no scleral icterus, normal hearing, lips without lesions, neck normal range of motion. CARDIOVASCULAR: Not assessed. PULMONARY: Normal respiratory effort, no respiratory distress or use of accessory muscles, speaking in full sentences, no tachypnea. EXTREMITIES: No pedal edema or cyanosis. SKIN: Normal skin appearance. NEUROLOGIC: Alert and oriented x4. PSHYCHIATRIC: Appropriate affect, mood normal, behavior normal, intact thought and speech. LABORATORY DATA: I have personally reviewed and interpreted each of the patient?s relevant lab tests, abnormal findings are below: Date 07/18/24 07/25/24 ??WHITE?BLOOD?COUNT?(Thou/mm3) ? 3.7 8.8 ??RED?BLOOD?COUNT?(Miln/mm3) ? 2.50?L 3.12?L ??HEMOGLOBIN?(gm/dl) ? 7.8?L 9.7?L ??HEMATOCRIT?(%) ? 22.5?L 28.5?L ??PLATELET?COUNT?(Thou/mm3) ? 123?L 338 ??NEUTROPHILS?%,?AUTO?(%) ? 56 84?H ??LYMPH?%,?AUTO?(%) ? 33 7?L ??NEUTROPHILS,?AUTO?(Thou/mm3) ? 2.0 7.4 ??GLUCOSE,RANDOM?(mg/dL) 204?H ? 189?H ??BLOOD?UREA?NITROGEN?(mg/dL) 43?H ? 44?H ??CREATININE?(mg/dL) 1.00 ? 1.00 ??SODIUM?(mmol/L) 134?L ? 135?L ??POTASSIUM?(mmol/L) 4.6 ? 4.7 ??CHLORIDE?(mmol/L) 102 ? 100 ??CrCl?(CandG)?(ml/min) 33.62 ? 33.62 ??AST/SGOT?(Unit/L) 15 ? 19 ??ALT/SGPT?(Unit/L) 10 ? 14 ??ALKALINE?PHOSPHATASE?(Unit/L) 70 ? 81 ??BILIRUBIN,?TOTAL?(mg/dL) 0.3 ? 0.4 ??PROTEIN?TOTAL?(gm/dl) 7.3 ? 7.3 ??ALBUMIN,?SERUM?(gm/dl) 4.0 ? 4.0 ??GLOBULIN?(gm/dl) 3.3 ? 3.3 ??ALBUMIN/GLOBULIN?RATIO 1.2 ? 1.2 ??CALCIUM,?SERUM?(mg/dL) 8.9 ? 8.6 ??CALCIUM?SERUM?(CORRECTED)?(mg/dL) 8.9 ? 8.6 ASSESSMENT/PLAN: Diana Tierney, a 74-year-old female with stage IV laryngeal cancer, presents with nausea, vomiting, weakness, and difficulty walking after completing 5 cycles of chemotherapy. Stage IV Laryngeal Cancer Assessment: Patient has a history of stage IV laryngeal cancer and has completed 5 cycles of [address]. Recent CT scan of chest, abdomen, and pelvis shows no evidence of cancer, except for a small lesion in the pelvis of unknown significance. A CT scan of the brain was reported as normal. There is a recommendation for an MRI of the right sacrum due to a finding on a previous imaging study. Given the inconclusive nature of the pelvic lesion, further evaluation with a PET-CT scan is warranted to determine if it represents active cancer. Plan: - Order PET-CT scan to evaluate the small pelvic lesion - Schedule follow-up appointment after PET-CT scan results are available - Continue current chemotherapy regimen - Order MRI of brain every 6 months for surveillance - If PET-CT shows active cancer in the pelvis, refer for radiation therapy Chemotherapy-Induced Nausea and Vomiting Assessment: Patient reports severe nausea and vomiting, with 3-4 episodes of emesis this morning. She has been taking antiemetics, including Compazine and Zofran, but the current regimen appears to be inadequate for symptom control. Plan: - Administer Zofran 8 mg IV or PO immediately for acute symptom relief - Adjust antiemetic regimen: - Zofran (dissolvable): Take 3 times daily (channeler runner, before lunch, and before dinner) - Compazine: Take after breakfast, lunch, and dinner - Order Home Health for medication education - Reassess efficacy of antiemetic regimen at next follow-up Weakness and Difficulty Walking Assessment: Patient reports being bedbound for approximately 4 days due to weakness and difficulty walking. She experiences leg weakness and near-falls when attempting to get out of bed. This could be related to deconditioning from prolonged bed rest, a side effect of chemotherapy, or potentially due to the cancer itself. Brain scan was reported as normal, making a central nervous system cause less likely. Plan: - Recommend gradual mobilization with assistance to prevent falls - Consider physical therapy evaluation for strength training and gait assessment - Reassess at next follow-up appointment Severe Osteopenia Assessment: Patient has been diagnosed with severe osteopenia, which increases her risk of fractures, especially in the context of her weakness and difficulty walking. Plan: - Educate patient on fall prevention strategies - Recommend calcium and vitamin D supplementation (specific doses not mentioned) - Consider bone density follow-up and potential osteoporosis treatment at a future visit History of Pulmonary Embolism Assessment: Patient has a history of pulmonary embolism and is currently on anticoagulation therapy with Eliquis. Plan: - Continue Eliquis as prescribed for anticoagulation - Monitor for signs of bleeding or thrombosis at follow-up visits ORDERS: Order # Description [id number] PET/CT of Skull to mid-thigh for Restaging [id number] MD Follow Up 4 Week RETURN TO CLINIC: BILLING AND COMPLIANCE: I reviewed external records from providers outside my specialty as summarized above. I spent a total of 50 minutes on this patient?s care on the day of their visit excluding time spent related to any billed procedures. This time includes time spent with the patient as well as time spent documenting in the medical record, reviewing patients records and tests, obtaining history, placing orders, communicating with other healthcare professionals, counseling the patient, family or caregiver, and/or care coordination for the diagnoses above. Electronically Signed by: {Object.Sanct_ID*PnP.NameFL@M}, {Object.Sanct_ID*PnP.Suffix@U} D: {Object.Sanct_Date} T: {Object.Sanct_Time} CC: PCP: Linda Mendosa Referring: Linda Mendosa This document was completed utilizing speech recognition software. Grammatical errors, random word insertions, pronoun errors, and incomplete sentences are an occasional consequence of this system due to software limitations, ambient noise, and hardware issues. Any formal questions or concerns about the content, text or information contained within the body of this dictation should be directly addressed to the provider for clarification.
[2024-08-03 09:15] LABS: Basophils # (Auto) 0.1 Thou/mm3 (0.0-0.2); Basophils % (Auto) 1 % (0-2.5); Eosinophils % (Auto) 0 % (0-10); Hematocrit 29.6 % (36.0-46.0); Hemoglobin 9.9 g/dL (12.0-16.0); Immature Granulocytes % (Auto) 1 % (0-0); Immature Granulocytes Auto 0.08 Thou/mm3 (0.00-0.00); Lymphocytes # (Auto) 3.2 Thou/mm3 (1.0-4.8); Lymphocytes % (Auto) 30 % (10-50); Mean Corpuscular HGB Conc 33.4 g/dl (31.0-37.0); Mean Corpuscular Hemoglobin 31.2 pg (25.0-35.0); Mean Corpuscular Volume 93 fL (80-100); Monocytes # (Auto) 1.2 Thou/mm3 (0.0-0.8); Monocytes % (Auto) 11 % (0-12); Neutrophils # (Auto) 6.3 Thou/mm3 (1.8-7.7); Neutrophils % (Auto) 58 % (37-80); Nucleated Red Blood Cell % 0 /100 WBC (0); Platelet Count 431 Thou/mm3 (140-440); RDW Standard Deviation 75.4 fL (36.4-46.3); Red Blood Count 3.17 Miln/mm3 (4.00-5.20); White Blood Count 10.8 Thou/mm3 (3.6-11.0)
[2024-08-03 09:35] LABS: Alanine Aminotransferase 21 U/L (10-49); Albumin, Serum 4.1 gm/dL (3.4-4.8); Albumin/Globulin Ratio 1.3 (1.2-2.2); Alkaline Phosphatase 99 U/L (46-116); Anion Gap 8 (7-16); Aspartate Amino Transferase 22 U/L (0-34); BUN/Creatinine Ratio 43 Ratio (12-20); Bilirubin,Total 0.3 mg/dL (0.3-1.2); Blood Urea Nitrogen 43 mg/dL (9-23); Calcium 8.8 mg/dL (8.3-10.6); Calcium (Corrected) 8.8 mg/dL (8.5-10.1); Carbon Dioxide 28.9 mMol/L (20.0-31.0); Chloride 102 mMol/L (98-107); Globulin 3.2 gm/dL (2.3-3.5); Glucose 146 mg/dL (74-106); Osmolality,Calculated 291 (275-295); Sodium 139 mMol/L (136-145); Total Protein 7.3 gm/dL (5.7-8.2); eGFR 59 See Note
== END 2024-08-05 23:59 | disposition home or self-care (01) ==
LOC: SCTC 10:17
PROVIDERS: PCP Nurse Practitioner; Referring Provider Nurse Practitioner; Visit Provider Internal Medicine Hematology & Oncology
DX: Z51.11 Encounter for antineoplastic chemotherapy (principal); Z51.0 Encounter for antineoplastic radiation therapy; C32.8 Malignant neoplasm of overlapping sites of larynx; R11.2 Nausea with vomiting, unspecified; R26.2 Difficulty in walking, not elsewhere classified; R53.1 Weakness; T45.1X5D Adverse effect of antineoplastic and immunosuppressive drugs, subsequent encounter; Z87.891 Personal history of nicotine dependence; M85.80 Other specified disorders of bone density and structure, unspecified site; Z86.711 Personal history of pulmonary embolism; Z79.01 Long term (current) use of anticoagulants
CPT/HCPCS: 36430; 36591; 77014; 77290; 77300; 77301; 77334; 77338; 77385; 80053; 84443; 85025; 86850; 86900; 86901; 86923; 96360; 96361; 96365; 96372; 96413; 99212; A4216; J1642; J2405; J7030; J7040; J7050; J9022; P9016; G0463

== ENCOUNTER 2024-08-17 10:20 | Outpatient (RCR) | payer MEDICARE, MEDICAID, SELFPAY ==
--- NOTE | 2024-08-07 11:51 | CTCTRTNOTE_ITS ---
[facility] [address] [place], [place] [address] Weekly Management Date: 08/07/2024 ?? Name: LEVIZuleyka Ledbetter.: 1950 A. Patient is currently at 600 cGy. B. Patient is tolerating treatment well. C. Right cervical adenopathy noted. Has been having some nausea vomiting. D. Resume radiation therapy. Will order MRI of the brain with contrast Electronically signed by: Marko Duran M.D. 08/07/2024 11:49 AM
[2024-08-09 10:34] LABS: Basophils # (Auto) 0.1 Thou/mm3 (0.0-0.2); Basophils % (Auto) 1 % (0-2.5); Eosinophils % (Auto) 0 % (0-10); Hematocrit 29.1 % (36.0-46.0); Hemoglobin 9.9 g/dL (12.0-16.0); Immature Granulocytes % (Auto) 0 % (0-0); Immature Granulocytes Auto 0.02 Thou/mm3 (0.00-0.00); Lymphocytes # (Auto) 1.3 Thou/mm3 (1.0-4.8); Lymphocytes % (Auto) 18 % (10-50); Mean Corpuscular Volume 94 fL (80-100); Monocytes # (Auto) 0.5 Thou/mm3 (0.0-0.8); Monocytes % (Auto) 7 % (0-12); Neutrophils # (Auto) 5.6 Thou/mm3 (1.8-7.7); Neutrophils % (Auto) 74 % (37-80); Nucleated Red Blood Cell % 0 /100 WBC (0); Platelet Count 294 Thou/mm3 (140-440); RDW Standard Deviation 73.7 fL (36.4-46.3); Red Blood Count 3.09 Miln/mm3 (4.00-5.20); White Blood Count 7.6 Thou/mm3 (3.6-11.0)
[2024-08-09 10:54] LABS: Alanine Aminotransferase 19 U/L (10-49); Albumin/Globulin Ratio 1.4 (1.2-2.2); Alkaline Phosphatase 86 U/L (46-116); Anion Gap 8 (7-16); Aspartate Amino Transferase 20 U/L (0-34); BUN/Creatinine Ratio 43 Ratio (12-20); Bilirubin,Total 0.3 mg/dL (0.3-1.2); Blood Urea Nitrogen 34 mg/dL (9-23); Calcium 8.6 mg/dL (8.3-10.6); Calcium (Corrected) 8.6 mg/dL (8.5-10.1); Carbon Dioxide 27.5 mMol/L (20.0-31.0); Chloride 105 mMol/L (98-107); Creatinine (Component) 0.8 mg/dL (0.6-1.3); Globulin 2.9 gm/dL (2.3-3.5); Glucose 169 mg/dL (74-106); Osmolality,Calculated 291 (275-295); Potassium 4.5 mMol/L (3.4-5.1); Sodium 140 mMol/L (136-145); Total Protein 6.9 gm/dL (5.7-8.2); eGFR > 60 See Note
[2024-08-09 10:57] LABS: Thyroid Stimulating Hormone 1.95 uIU/mL (0.55-4.78)
[2024-08-15 10:22] LABS: Basophils % (Auto) 1 % (0-2.5); Eosinophils # (Auto) 0.1 Thou/mm3 (0.0-0.5); Eosinophils % (Auto) 2 % (0-10); Hematocrit 29.7 % (36.0-46.0); Hemoglobin 9.8 g/dL (12.0-16.0); Immature Granulocytes % (Auto) 0 % (0-0); Immature Granulocytes Auto 0.02 Thou/mm3 (0.00-0.00); Lymphocytes # (Auto) 1.2 Thou/mm3 (1.0-4.8); Lymphocytes % (Auto) 21 % (10-50); Mean Corpuscular Hemoglobin 32.5 pg (25.0-35.0); Mean Corpuscular Volume 98 fL (80-100); Monocytes # (Auto) 0.5 Thou/mm3 (0.0-0.8); Monocytes % (Auto) 9 % (0-12); Neutrophils # (Auto) 3.7 Thou/mm3 (1.8-7.7); Neutrophils % (Auto) 67 % (37-80); Nucleated Red Blood Cell % 0 /100 WBC (0); Platelet Count 221 Thou/mm3 (140-440); Red Blood Count 3.02 Miln/mm3 (4.00-5.20); White Blood Count 5.6 Thou/mm3 (3.6-11.0)
[2024-08-15 10:41] LABS: Alanine Aminotransferase 19 U/L (10-49); Albumin/Globulin Ratio 1.3 (1.2-2.2); Alkaline Phosphatase 80 U/L (46-116); Anion Gap 5 (7-16); BUN/Creatinine Ratio 56 Ratio (12-20); Bilirubin,Total 0.3 mg/dL (0.3-1.2); Blood Urea Nitrogen 45 mg/dL (9-23); Carbon Dioxide 29.2 mMol/L (20.0-31.0); Chloride 107 mMol/L (98-107); Creatinine (Component) 0.8 mg/dL (0.6-1.3); Glucose 154 mg/dL (74-106); Osmolality,Calculated 295 (275-295); Potassium 4.6 mMol/L (3.4-5.1); Sodium 141 mMol/L (136-145); eGFR > 60 See Note
== END 2024-09-04 23:59 | disposition home or self-care (01) ==
LOC: SCTC 10:20
PROVIDERS: Referring Provider Internal Medicine Hematology & Oncology; Visit Provider Internal Medicine Hematology & Oncology
DX: Z51.0 Encounter for antineoplastic radiation therapy (principal); Z51.11 Encounter for antineoplastic chemotherapy; C32.8 Malignant neoplasm of overlapping sites of larynx; C79.51 Secondary malignant neoplasm of bone
CPT/HCPCS: 36591; 77336; 77385; 80053; 84443; 85025; 96361; 96365; 96413; A4216; J1642; J2405; J7030; J7040; J7050; J9022

== ENCOUNTER → 2024-08-29 | Outpatient (CLI) | payer MEDICARE, MEDICAID, SELFPAY ==
--- NOTE | 2024-08-29 13:15 | XR_ITS ---
EXAMINATION: PET/CT FUSION SKULL TO THIGH EXAM DATE AND TIME: August 29, 2024 1417 hours Comparison PET/CT scan February 24, 2024 INDICATIONS: Diagnosis laryngeal cancer, restaging post treatment CTDI:vol (mGy) 2.42 DLP: (mGycm) 220.80 PROCEDURE: 16 mCi FDG was administered intravenously To allow for distribution and uptake of radiotracer, the patient was allowed to rest quietly in a shielded room. Imaging was performed on an integrated 16-slice PET/CT scanner, with scanning from the skull base to the mid thigh. . CT scanning was performed without oral or intravenous contrast material. FINDINGS: Head and Neck: Minimal residual week hypermetabolic activity in the left larynx, 6 x 4 mm compared to 12 x 8 mm on February 24, 2024 Large hypermetabolic 5.5 cm metastatic cervical hypermetabolic lymphadenopathy on February 24, 2024 is no longer identified New 14 mm hypermetabolic right carotid triangle lymph node axial image 71 compared to the prior PET scan Left supraclavicular hypermetabolic lymph node mass lateral to the larynx noted on the February 24, 2024 study is no longer identified New retroclavicular 6 mm metastatic left lymph node image 96 Chest: No current mediastinal hypermetabolic lymphadenopathy Anterior segment left upper lobe nodule, non hypermetabolic, measures 11 mm compared to 16 mm on 02/24/2024 13 mm pulmonary nodule left upper lobe on 02/24/2024 is no longer identified 4 mm pulmonary nodule right upper lobe noted on February 24, 2024 is no longer identified New 18 mm pulmonary nodule right lower lobe not visualized on February 24, 2024 Abdomen and Pelvis: Interval 4 mm hypermetabolic focus anterior right lobe of the liver image 162, Interval 10 mm hypermetabolic focus upper right lobe of the liver image 157 Interval 12 mm hypermetabolic focus left lobe of the liver image 164 Interval 12 mm hypermetabolic focus left lobe of the liver image 178 Interval 10 mm hypermetabolic focus right lower lobe and interval 20 mm focus right lower liver on image 183 Multiple additional smaller hypermetabolic foci in the liver lower right lobe Interval 14 mm hypermetabolic focus lower medial right lobe of the liver Musculoskeletal: Interval multiple hypermetabolic osseous lesions including right acromium right anterior fourth rib right seventh rib posteriorly, proximal left humerus, left humeral neck IMPRESSION: Comparison made to PET CT scan February 24, 2024 Some pulmonary nodules are no longer identified and some pulmonary nodules are smaller However, 18 mm pulmonary nodule right lower lobe Interval multiple hepatic metastases Interval multiple hypermetabolic osseous metastatic lesions
== END | disposition home or self-care (01) ==
PROVIDERS: PCP Nurse Practitioner; Referring Provider Internal Medicine Hematology & Oncology; Visit Provider Internal Medicine Hematology & Oncology
DX: C32.8 Malignant neoplasm of overlapping sites of larynx (principal); C32.9 Malignant neoplasm of larynx, unspecified; R91.1 Solitary pulmonary nodule; C78.7 Secondary malignant neoplasm of liver and intrahepatic bile duct; C79.51 Secondary malignant neoplasm of bone
CPT/HCPCS: 78815; A9552

== ENCOUNTER → 2024-09-14 | Outpatient (CLI) | payer MEDICARE, MEDICAID, SELFPAY ==
--- NOTE | 2024-09-14 08:30 | XR_ITS ---
Examination: MRI brain with intravenous contrast TECHNIQUE: Multiple axial sagittal coronal brain MRI images post intravenous ministration 8 cc gadolinium INDICATIONS: Diagnosis malignant neoplasm of overlapping sites of the larynx secondary malignant neoplasm bone, dizziness numbness in the legs one year Date and time: September 14, 2024 0905 hours Comparison brain MRI with without contrast April 25, 2024 FINDINGS: Ventricles are normal in size and configuration. No mass effect upon the ventricular system. No effacement cortical sulci Fourth ventricle midline Mild bilateral mastoiditis No abnormal enhancing cerebellar or cerebral lesions IMPRESSION: No abnormal enhancing cerebellar or cerebral lesions
== END | disposition home or self-care (01) ==
LOC: SMRI 08:20
PROVIDERS: PCP Radiology Therapeutic Radiology; Referring Provider Radiology Therapeutic Radiology; Visit Provider Radiology Therapeutic Radiology
DX: C32.8 Malignant neoplasm of overlapping sites of larynx (principal); C79.51 Secondary malignant neoplasm of bone
CPT/HCPCS: 70552; A9579

== ENCOUNTER 2024-10-02 09:02 | Outpatient (RCR) | payer MEDICARE, MEDICAID, SELFPAY ==
--- NOTE | 2024-09-05 11:06 | CTCTSUMM_ITS ---
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 Patient started chemo under Dr. Lazaro's direction. For mets to the sacrum which caused significant pain symptoms patient received 3000 cGy completed 1 month ago. When seen for first follow-up on 09/05/2024 patient felt better overall, not having significant pain or breathing difficulties. (G) Discharge Instructions and F/U Appt was given: The patient was also advised to continue follow-up with Dr. Lazaro and primary care physician: C: Chilango Pabon DO Electronically signed by: Marko Duran MD, LARONR 09/05/2024 11:04 AM
[2024-09-06 11:57] LABS: Basophils # (Auto) 0.1 Thou/mm3 (0.0-0.2); Basophils % (Auto) 1 % (0-2.5); Eosinophils # (Auto) 0.1 Thou/mm3 (0.0-0.5); Eosinophils % (Auto) 1 % (0-10); Hematocrit 28.9 % (36.0-46.0); Hemoglobin 9.8 g/dL (12.0-16.0); Immature Granulocytes Auto 0.04 Thou/mm3 (0.00-0.00); Lymphocytes # (Auto) 1.0 Thou/mm3 (1.0-4.8); Lymphocytes % (Auto) 13 % (10-50); Mean Corpuscular HGB Conc 33.9 g/dl (31.0-37.0); Mean Corpuscular Hemoglobin 32.8 pg (25.0-35.0); Mean Corpuscular Volume 97 fL (80-100); Monocytes # (Auto) 0.5 Thou/mm3 (0.0-0.8); Monocytes % (Auto) 7 % (0-12); Neutrophils # (Auto) 6.3 Thou/mm3 (1.8-7.7); Neutrophils % (Auto) 78 % (37-80); Nucleated Red Blood Cell # 0.00 Thou/mm3 (0.00-0.00); Nucleated Red Blood Cell % 0 /100 WBC (0); Platelet Count 215 Thou/mm3 (140-440); RDW Standard Deviation 61.2 fL (36.4-46.3); Red Blood Count 2.99 Miln/mm3 (4.00-5.20); White Blood Count 8.0 Thou/mm3 (3.6-11.0)
[2024-09-06 12:22] LABS: Alanine Aminotransferase 26 U/L (10-49); Albumin, Serum 4.0 gm/dL (3.4-4.8); Albumin/Globulin Ratio 1.3 (1.2-2.2); Alkaline Phosphatase 96 U/L (46-116); Anion Gap 2 (7-16); Aspartate Amino Transferase 23 U/L (0-34); BUN/Creatinine Ratio 31 Ratio (12-20); Bilirubin,Total 0.3 mg/dL (0.3-1.2); Blood Urea Nitrogen 28 mg/dL (9-23); Calcium 9.1 mg/dL (8.3-10.6); Calcium (Corrected) 9.1 mg/dL (8.5-10.1); Carbon Dioxide 29.2 mMol/L (20.0-31.0); Chloride 107 mMol/L (98-107); Creatinine (Component) 0.9 mg/dL (0.6-1.3); Globulin 3.0 gm/dL (2.3-3.5); Glucose 144 mg/dL (74-106); Osmolality,Calculated 284 (275-295); Potassium 4.1 mMol/L (3.4-5.1); Sodium 138 mMol/L (136-145); Thyroid Stimulating Hormone 1.84 uIU/mL (0.55-4.78); Total Protein 7.0 gm/dL (5.7-8.2); eGFR > 60 See Note
[2024-09-27 15:55] LABS: Basophils # (Auto) 0.0 Thou/mm3 (0.0-0.2); Basophils % (Auto) 1 % (0-2.5); Eosinophils # (Auto) 0.0 Thou/mm3 (0.0-0.5); Eosinophils % (Auto) 1 % (0-10); Hematocrit 28.9 % (36.0-46.0); Hemoglobin 9.8 g/dL (12.0-16.0); Immature Granulocytes Auto 0.01 Thou/mm3 (0.00-0.00); Lymphocytes # (Auto) 1.2 Thou/mm3 (1.0-4.8); Lymphocytes % (Auto) 20 % (10-50); Mean Corpuscular HGB Conc 33.9 g/dl (31.0-37.0); Mean Corpuscular Hemoglobin 32.8 pg (25.0-35.0); Mean Corpuscular Volume 97 fL (80-100); Monocytes # (Auto) 0.6 Thou/mm3 (0.0-0.8); Monocytes % (Auto) 10 % (0-12); Neutrophils # (Auto) 4.3 Thou/mm3 (1.8-7.7); Neutrophils % (Auto) 69 % (37-80); Nucleated Red Blood Cell # 0.00 Thou/mm3 (0.00-0.00); Nucleated Red Blood Cell % 0 /100 WBC (0); Platelet Count 243 Thou/mm3 (140-440); RDW Standard Deviation 54.4 fL (36.4-46.3); Red Blood Count 2.99 Miln/mm3 (4.00-5.20); White Blood Count 6.2 Thou/mm3 (3.6-11.0)
[2024-09-27 16:05] LABS: Alanine Aminotransferase 43 U/L (10-49); Albumin, Serum 3.9 gm/dL (3.4-4.8); Albumin/Globulin Ratio 1.3 (1.2-2.2); Alkaline Phosphatase 171 U/L (46-116); Anion Gap 6 (7-16); Aspartate Amino Transferase 46 U/L (0-34); BUN/Creatinine Ratio 32 Ratio (12-20); Bilirubin,Total 0.2 mg/dL (0.3-1.2); Blood Urea Nitrogen 29 mg/dL (9-23); Calcium 9.1 mg/dL (8.3-10.6); Calcium (Corrected) 9.2 mg/dL (8.5-10.1); Carbon Dioxide 29.2 mMol/L (20.0-31.0); Chloride 105 mMol/L (98-107); Creatinine (Component) 0.9 mg/dL (0.6-1.3); Globulin 2.9 gm/dL (2.3-3.5); Glucose 108 mg/dL (74-106); Osmolality,Calculated 286 (275-295); Potassium 4.0 mMol/L (3.4-5.1); Sodium 140 mMol/L (136-145); Thyroid Stimulating Hormone 2.77 uIU/mL (0.55-4.78); Total Protein 6.8 gm/dL (5.7-8.2); eGFR > 60 See Note
--- NOTE | 2024-10-03 07:21 | CTCFLWUP_ITS ---
Patient: DIANA HOSKINS : 1950 Page 4 of 6 FOLLOW UP NOTE DATE OF SERVICE: 10/02/2024 NAME: DIANA HOSKINS ACCOUNT: [id number] : 1950 AGE: 74 INTERVAL HISTORY: Subjective: Chief Complaint Right shoulder pain, worsening metastatic cancer History of Present Illness Niall Ortiz, a patient with a history of lung cancer, presents for follow- up of her condition and to discuss recent imaging results. The patient reports severe pain in her right shoulder, specifically in the bone of the right acromion. She describes this pain as so sore and notes that it is the primary source of her discomfort. Diana mentions that her left humerus is also affected, but states, That one doesn't bother me. She acknowledges a history of smoking and indicates that she has attempted to quit. The patient expresses concern about the severity of her cancer, asking, So is it bad for I have the cancer? Since her last visit, Diana's condition has evolved. While the lung lesions have decreased in size, metastatic disease has been identified in her bones and liver. Specifically, cancer has been detected in the right acromion, 4th and 7th ribs, and the liver. This progression suggests that her current treatment regimen may no longer be effective. Medications and Supplements - Carboplatin - Etoposide - Atezolizumab Review of Systems Musculoskeletal: Positive for right shoulder pain. Negative for left humerus pain. Objective: Laboratory, Imaging, and Diagnostic Test Results - MRI brain: Negative - Imaging studies: - Lungs: Metastatic disease has improved - Bones: Metastatic disease present - Right acromion - 4th and 7th ribs - Left humerus - Liver: Cancer present ONCOLOGY HISTORY:?[facility] Hx? 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 Patient says that she started noticing change in her voice as well as difficulty swallowing for about 1 and half year. She is has been investigated extensively and was not found to have any cancer until recently when she had a diagnosis of laryngeal cancer. She would like to preserve her voice and do not want surgical intervention. Patient will like to have more conservative treatment with chemotherapy and radiation. Patient have a boyfriend who will be helping Ms. Hoskins and do not have any immediate family to support her during her treatment. 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 atorvastatin - 40 mg 1 tab Daily 2. azithromycin - 250 mg 250 mg Daily 3. Compazine - 10 mg 1 tab Every 6 Hours 4. Compazine - 10 mg 1 tab 1 tab every 6 hrs as needed for nausea 5. Effexor XR - 75 mg Daily 6. hydrochlorothiazide - 25 mg Daily 7. HYDROcodone-acetaminophen - 10-325 mg 1 tab Every 6 Hours 8. Jardiance - 25 mg 1 tab Daily 9. Lasix - 20 mg Daily 10. Lidocaine Viscous - 2 % 10 mL Daily 11. Lipitor - 40 mg Daily 12. lisinopril - 2.5 mg Daily 13. Maalox Advanced - 200-200-20 mg/5 mL 20 mL Daily 14. Mouthwash - As directed 15. nystatin - 100,000 unit/mL 10 mL Daily 16. ondansetron - 8 mg 1 tab every 8 hras / before meals as needed for nausea 17. Pepcid - 20 mg Daily 18. Protonix - 40 mg Daily 19. Senna Plus - 8.6-50 mg 1 Capsule Twice a Day 20. Singulair - 10 mg Daily 21. Vitamin D - 5,000 unit 1 tab Daily 22. Zofran - 8 mg 8 mg three times a day prn nausea 23. Zofran - 8 mg 1 tab Every 8 Hours?Palabra Meds? Medications Last Reconciled by Latonya Mark MA on 10/02/2024 ALLERGIES: No Known Drug Allergies REVIEW OF SYSTEMS: A complete 14-point review of systems was performed and is negative except as noted in interval history. PHYSICAL EXAMINATION:?[facility] PE? VITAL SIGNS: Temperature?92.8, B/P?128/76, Oxygen?Saturation?94% Weight?92.8?lbs (Change?since?09/27/24:?0?lbs) PAIN: 0 - No pain ECOG Performance Status: 1 - Symptomatic; ambulatory; restricted in strenuous activity GENERAL APPEARANCE: Appears emaciated , in no apparent distress, appropriately interactive. In wheel chair HEENT: Normocephalic, no temporal wasting, normal conjunctiva, no scleral icterus, normal hearing, lips without lesions, neck normal range of motion. CARDIOVASCULAR: Not assessed. PULMONARY: Normal respiratory effort, no respiratory distress or use of accessory muscles, speaking in full sentences, no tachypnea. EXTREMITIES: No pedal edema or cyanosis. SKIN: Normal skin appearance. NEUROLOGIC: Alert and oriented x4. PSHYCHIATRIC: Appropriate affect, mood normal, behavior normal, intact thought and speech. LABORATORY DATA: I have personally reviewed and interpreted each of the patient?s relevant lab tests, abnormal findings are below: Date 09/06/24 09/27/24 ??WHITE?BLOOD?COUNT?(Thou/mm3) 8.0 6.2 ??RED?BLOOD?COUNT?(Miln/mm3) 2.99?L 2.99?L ??HEMOGLOBIN?(gm/dl) 9.8?L 9.8?L ??HEMATOCRIT?(%) 28.9?L 28.9?L ??PLATELET?COUNT?(Thou/mm3) 215 243 ??NEUTROPHILS?%,?AUTO?(%) 78 69 ??LYMPH?%,?AUTO?(%) 13 20 ??NEUTROPHILS,?AUTO?(Thou/mm3) 6.3 4.3 ??GLUCOSE,RANDOM?(mg/dL) 144?H 108?H ??BLOOD?UREA?NITROGEN?(mg/dL) 28?H 29?H ??CREATININE?(mg/dL) 0.90 0.90 ??SODIUM?(mmol/L) 138 140 ??POTASSIUM?(mmol/L) 4.1 4.0 ??CHLORIDE?(mmol/L) 107 105 ??CrCl?(CandG)?(ml/min) 35.66 35.89 ??AST/SGOT?(Unit/L) 23 46?H ??ALT/SGPT?(Unit/L) 26 43 ??ALKALINE?PHOSPHATASE?(Unit/L) 96 171?H ??BILIRUBIN,?TOTAL?(mg/dL) 0.3 0.2?L ??PROTEIN?TOTAL?(gm/dl) 7.0 6.8 ??ALBUMIN,?SERUM?(gm/dl) 4.0 3.9 ??GLOBULIN?(gm/dl) 3.0 2.9 ??ALBUMIN/GLOBULIN?RATIO 1.3 1.3 ??CALCIUM,?SERUM?(mg/dL) 9.1 9.1 ??CALCIUM?SERUM?(CORRECTED)?(mg/dL) 9.1 9.2 ASSESSMENT/PLAN:?Sj Tejas Assessment/Plan? Niall Ortiz, a patient with a history of smoking and lung cancer, presents with right shoulder pain and progression of metastatic disease. Metastatic Lung Cancer Assessment: Patient has a known history of lung cancer, likely related to smoking. Recent imaging studies reveal progression of metastatic disease. MRI of the brain was negative, but there is evidence of metastases in the liver, bones (right acromion, 4th and 7th ribs, and left humerus), and persistent lung involvement. The patient reports significant right shoulder pain, correlating with the metastasis in the right acromion. Previous treatment with carboplatin, etoposide, and atezolizumab (1st line therapy) has shown partial response in the lungs, but disease progression in other sites indicates treatment resistance. Plan: - Discontinue current treatment regimen due to disease progression - Initiate 2nd line therapy with eyak-based chemotherapy and irinotecan - Administer treatment every 2-3 weeks - Reassess with imaging studies after 2 months (approximately 2-3 treatment cycles) - Consider biopsy of progressing lesions if time permits - Educate patient on the importance of early reporting of new symptoms or changes in condition - Schedule follow-up visit after completion of 2-3 treatment cycles Smoking Assessment: Patient has a history of smoking, which is directly linked to their lung cancer diagnosis. It is unclear from the transcript whether the patient or their spouse is currently smoking. Plan: - Reinforce smoking cessation counseling for patient and household members - Discuss importance of smoking cessation in cancer treatment and overall health Weakness and Difficulty Walking Assessment: Patient reports being bedbound for approximately 4 days due to weakness and difficulty walking. She experiences leg weakness and near-falls when attempting to get out of bed. This could be related to deconditioning from prolonged bed rest, a side effect of chemotherapy, or potentially due to the cancer itself. Brain scan was reported as normal, making a central nervous system cause less likely. Plan: - Recommend gradual mobilization with assistance to prevent falls - Consider physical therapy evaluation for strength training and gait assessment - Reassess at next follow-up appointment Severe Osteopenia Assessment: Patient has been diagnosed with severe osteopenia, which increases her risk of fractures, especially in the context of her weakness and difficulty walking. Plan: - Educate patient on fall prevention strategies - Recommend calcium and vitamin D supplementation (specific doses not mentioned) - Consider bone density follow-up and potential osteoporosis treatment at a future visit History of Pulmonary Embolism Assessment: Patient has a history of pulmonary embolism and is currently on anticoagulation therapy with Eliquis. Plan: - Continue Eliquis as prescribed for anticoagulation - Monitor for signs of bleeding or thrombosis at follow-up visits ORDERS: Order # Description [id number] Lab Appointment [id number] CBC + Comprehensive Metabolic Panel [id number] Lab Appointment [id number] Lab Appointment [id number] CBC + Comprehensive Metabolic Panel [id number] Lab Appointment [id number] Lab Appointment [id number] CBC + Comprehensive Metabolic Panel [id number] Lab Appointment [id number] Lab Appointment [id number] CBC + Comprehensive Metabolic Panel [id number] Lab Appointment [id number] Lab Appointment [id number] CBC + Comprehensive Metabolic Panel [id number] Lab Appointment [id number] Lab Appointment [id number] CBC + Comprehensive Metabolic Panel [id number] Lab Appointment [id number] Lab Appointment [id number] CBC + Comprehensive Metabolic Panel [id number] Lab Appointment [id number] Lab Appointment [id number] CBC + Comprehensive Metabolic Panel [id number] Lab Appointment [id number] Lab Appointment [id number] CBC + Comprehensive Metabolic Panel [id number] Lab Appointment [id number] Lab Appointment [id number] CBC + Comprehensive Metabolic Panel [id number] Lab Appointment [id number] Lab Appointment [id number] CBC + Comprehensive Metabolic Panel [id number] Lab Appointment [id number] Lab Appointment [id number] CBC + Comprehensive Metabolic Panel [id number] Lab Appointment [id number] Lab Appointment [id number] CBC + Comprehensive Metabolic Panel [id number] Lab Appointment [id number] Lab Appointment [id number] CBC + Comprehensive Metabolic Panel [id number] Lab Appointment [id number] Lab Appointment [id number] CBC + Comprehensive Metabolic Panel [id number] Lab Appointment [id number] Lab Appointment [id number] CBC + Comprehensive Metabolic Panel [id number] Lab Appointment RETURN TO CLINIC: I reviewed the diagnosis, prognosis, and recommended treatment/procedure options with the patient (and/or their legal maintenance representative), including the potential benefits, risks, side effects and alternative therapies. We also discussed the option of no treatment and the possibility of clinical trial participation, if applicable. All questions were addressed, and they demonstrated understanding. They provided informed consent to proceed with the proposed plan of care. BILLING AND COMPLIANCE: I reviewed external records from providers outside my specialty as summarized above. I spent a total of 50 minutes on this patient?s care on the day of their visit excluding time spent related to any billed procedures. This time includes time spent with the patient as well as time spent documenting in the medical record, reviewing patients records and tests, obtaining history, placing orders, communicating with other healthcare professionals, counseling the patient, family or caregiver, and/or care coordination for the diagnoses above. Electronically Signed by: Schuyler Lazaro MD T: 7:19 AM CC: Jese? PCP: Linda Mendosa Referring: Marko Duran This document was completed utilizing speech recognition software. Grammatical errors, random word insertions, pronoun errors, and incomplete sentences are an occasional consequence of this system due to software limitations, ambient noise, and hardware issues. Any formal questions or concerns about the content, text or information contained within the body of this dictation should be directly addressed to the provider for clarification.
== END 2024-10-05 23:59 | disposition home or self-care (01) ==
LOC: SCTC 09:02
PROVIDERS: PCP Nurse Practitioner; Referring Provider Nurse Practitioner; Visit Provider Internal Medicine Hematology & Oncology
DX: Z51.11 Encounter for antineoplastic chemotherapy (principal); C32.8 Malignant neoplasm of overlapping sites of larynx; C34.12 Malignant neoplasm of upper lobe, left bronchus or lung; C79.51 Secondary malignant neoplasm of bone; C78.7 Secondary malignant neoplasm of liver and intrahepatic bile duct; Z92.3 Personal history of irradiation; F17.210 Nicotine dependence, cigarettes, uncomplicated; Z71.6 Tobacco abuse counseling; R26.2 Difficulty in walking, not elsewhere classified; R53.1 Weakness; M85.80 Other specified disorders of bone density and structure, unspecified site; Z86.711 Personal history of pulmonary embolism; Z79.01 Long term (current) use of anticoagulants
CPT/HCPCS: 36591; 80053; 84443; 85025; 96413; 99212; A4216; J1642; J7040; J7050; J9022; G0463

== ENCOUNTER 2024-10-27 11:30 | Emergency (ER) | payer MEDICARE, MEDICAID, SELFPAY ==
[2024-10-27 11:31] VITALS: BMI 16.5
--- NOTE | 2024-10-27 12:05 | PC.NURSE ---
PT CAME TO TRIAGE DESK AND SAID CAN I GET MY PAPER BACK. I'M GOING TO LEAVE AND GO TO THE [facility]. EXPLAINED ALL RISKS TO PT INCLUDING THAT SHE COUD BE BLEEDING INTO HER BRAIN AND STILL WANTING TO LEAVE. GAVE PT BACK REFERRAL TO THE E.D. FORM AND PT SIGNED LMSE FORM AND LEFT.
--- NOTE | 2024-10-27 12:09 | PC.LAC ---
AT 1205 PT CAME TO TRIAGE DESK AND SAID I DON'T FEEL GOOD AND I WANT TO LEAVE. CAN I GET MY PAPER BACK? EXPLAINED ALL CONSEQUENCES TO PT AND FAMILY MEMBER INCLUDING THAT SHE COULD BE BLEEDING INTO HER BRAIN AND PT STILL WANTS TO LEAVE. GAVE PT BACK REFERRAL TO THE E.D. FORM AND PT SIGNED LMSE FORM AND LEFT
--- NOTE | 2024-10-27 12:29 | PC.NURSE ---
PT CAME BACK TO THE E.D. STATING THEY CALLED ME TO COME BACK THAT THEY WERE READY FOR ME. SPOKE WITH DR. LAMAR WHO SAYS SHE CALLED THE PT TO COME BACK TO THE E.D.'
[2024-10-27 12:34] VITALS: BP 110/52; PULSE 81; RESP 18; TEMP 36.9; O2SAT 99
--- NOTE | 2024-10-27 12:44 | XR_ITS ---
Examination: Shoulder,left, 3 views Technique: Shoulder AP internal rotation, AP external rotation, Y view shoulder, 3 views Exam date and time :October 27, 2024 1342 hours INDICATIONS: Patient fell yesterday with injury to the shoulder, shoulder pain. FINDINGS: Multiple abnormal osteolytic lesions in the proximal left humeral shaft, the largest is 8 mm No shoulder fracture No shoulder dislocation IMPRESSION: No shoulder fracture Suspicious for osseous metastatic disease involving the proximal humeral shaft, recommend elective MRI shoulder follow-up pre and post intravenous contrast, consider old body bone scan Please see the patient's PET/CT scan August 29, 2024 and recommendations
[2024-10-27] MEDS: HYDROcodone/APAP 5/325 TABLET 1 TAB PO (13:51)
[2024-10-27] MEDS: ONDANSETRON ODT 4 MG TABRAP PO (13:52)
--- NOTE | 2024-10-27 14:30 | PC.NURSE ---
Patient left AMA at 1430, patient stated I don't want to wait anymore, I just want to go home and lay down, I had chemo today . Patient understood risks vs benefits of leaving ED AMA including . Patient encouraged to return to ED as needed.
== END 2024-10-27 14:30 | disposition left against medical advice (07) ==
LOC: SERX 14:44
PROVIDERS: Emergency Provider Emergency Medicine
DX: Z53.29 Procedure and treatment not carried out because of patient's decision for other reasons (principal); S49.92XA Unspecified injury of left shoulder and upper arm, initial encounter; W19.XXXA Unspecified fall, initial encounter
CPT/HCPCS: 73030; 99282; Q0162; A9270

== ENCOUNTER 2024-11-22 10:15 | Outpatient (RCR) | payer MEDICARE, MEDICAID, SELFPAY ==
[2024-11-08 12:57] LABS: Basophils # (Auto) 0.0 Thou/mm3 (0.0-0.2); Basophils % (Auto) 1 % (0-2.5); Eosinophils # (Auto) 0.0 Thou/mm3 (0.0-0.5); Eosinophils % (Auto) 0 % (0-10); Hematocrit 29.5 % (36.0-46.0); Hemoglobin 9.6 g/dL (12.0-16.0); Immature Granulocytes Auto 0.02 Thou/mm3 (0.00-0.00); Lymphocytes # (Auto) 0.7 Thou/mm3 (1.0-4.8); Lymphocytes % (Auto) 17 % (10-50); Mean Corpuscular HGB Conc 32.5 g/dl (31.0-37.0); Mean Corpuscular Hemoglobin 32.4 pg (25.0-35.0); Mean Corpuscular Volume 100 fL (80-100); Monocytes # (Auto) 0.5 Thou/mm3 (0.0-0.8); Monocytes % (Auto) 11 % (0-12); Neutrophils # (Auto) 2.9 Thou/mm3 (1.8-7.7); Neutrophils % (Auto) 70 % (37-80); Nucleated Red Blood Cell # 0.00 Thou/mm3 (0.00-0.00); Nucleated Red Blood Cell % 0 /100 WBC (0); Platelet Count 300 Thou/mm3 (140-440); RDW Standard Deviation 52.7 fL (36.4-46.3); Red Blood Count 2.96 Miln/mm3 (4.00-5.20); White Blood Count 4.1 Thou/mm3 (3.6-11.0)
[2024-11-08 13:29] LABS: Alanine Aminotransferase 56 U/L (10-49); Albumin, Serum 3.6 gm/dL (3.4-4.8); Albumin/Globulin Ratio 1.4 (1.2-2.2); Alkaline Phosphatase 791 U/L (46-116); Anion Gap 11 (7-16); Aspartate Amino Transferase 65 U/L (0-34); BUN/Creatinine Ratio 38 Ratio (12-20); Bilirubin,Total 0.3 mg/dL (0.3-1.2); Blood Urea Nitrogen 34 mg/dL (9-23); Calcium 9.6 mg/dL (8.3-10.6); Calcium (Corrected) 9.9 mg/dL (8.5-10.1); Carbon Dioxide 27.1 mMol/L (20.0-31.0); Chloride 100 mMol/L (98-107); Creatinine (Component) 0.9 mg/dL (0.6-1.3); Globulin 2.6 gm/dL (2.3-3.5); Glucose 117 mg/dL (74-106); Osmolality,Calculated 284 (275-295); Potassium 4.8 mMol/L (3.4-5.1); Sodium 138 mMol/L (136-145); Total Protein 6.2 gm/dL (5.7-8.2); eGFR > 60 See Note
--- NOTE | 2024-11-13 00:41 | CTCFLWUP_ITS ---
Patient: LEVI HOSKINS : 1950 Page 3 of 6 FOLLOW UP NOTE DATE OF SERVICE: 11/09/2024 NAME: LEVI HOSKINS ACCOUNT: [id number] : 1950 AGE: 74 INTERVAL HISTORY: Patient was started on your chemotherapy at last visit. Patient has received it and tolerated well. Medications and Supplements Lurbinectedin Review of Systems Musculoskeletal: Positive for right shoulder pain. Negative for left humerus pain. Objective: Laboratory, Imaging, and Diagnostic Test Results - MRI brain: Negative - Imaging studies: - Lungs: Metastatic disease has improved - Bones: Metastatic disease present - Right acromion - 4th and 7th ribs - Left humerus - Liver: Cancer present ONCOLOGY HISTORY:?[facility] Hx? 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 Patient says that she started noticing change in her voice as well as difficulty swallowing for about 1 and half year. She is has been investigated extensively and was not found to have any cancer until recently when she had a diagnosis of laryngeal cancer. She would like to preserve her voice and do not want surgical intervention. Patient will like to have more conservative treatment with chemotherapy and radiation. Patient have a boyfriend who will be helping Ms. Hoskins and do not have any immediate family to support her during her treatment. 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 Tobacco Use:?SMOKED 1-2 PPD X 60YRS; SMOKING 1/2 PPD NOW ETOH?Use:?DENIES Drug?Note:?DENIES Social?History?Note:?LIVES?WITH?PARTNER [employer] HOU[employer] SUPER[employer]OR HISTORY: Menarche?-?Age:?8 Menopause:?19 Hormone?Use:?DENIES :?3 Live?Births:?3 Age?1st?:?14 MEDICATIONS: 1. Ativan - 1 mg 1 tab Daily 2. atorvastatin - 40 mg 1 tab Daily 3. azithromycin - 250 mg 250 mg Daily 4. Colace 2-In-1 - 8.6-50 mg 1 tab as needed 5. Compazine - 10 mg 1 tab 1 tab every 6 hrs as needed for nausea 6. Compazine - 10 mg 1 tab Every 6 Hours 7. dexamethasone - 4 mg 2 tab daily for 2 days after each chemotherapy 8. Effexor XR - 75 mg Daily 9. Emend - 125 mg (1)- 80 mg (2) 1 Pack start day after chemo 10. Fosamax - 70 mg 1 tab weekly 11. hydrochlorothiazide - 25 mg Daily 12. HYDROcodone-acetaminophen - 10-325 mg 1 tab Every 6 Hours 13. Jardiance - 25 mg 1 tab Daily 14. Lasix - 20 mg Daily 15. Lasix - 40 mg 1 tab twice a day 16. Lidocaine Viscous - 2 % 10 mL Daily 17. Lipitor - 40 mg Daily 18. lisinopril - 2.5 mg Daily 19. Maalox Advanced - 200-200-20 mg/5 mL 20 mL Daily 20. Mouthwash - As directed 21. nystatin - 100,000 unit/mL 10 mL Daily 22. ondansetron - 8 mg 1 tab every 8 hras / before meals as needed for nausea 23. ondansetron HCl - 8 mg 1 tab every 8 hours as needed for nausea 24. Pepcid - 20 mg Daily 25. Protonix - 40 mg Daily 26. Senna Plus - 8.6-50 mg 1 Capsule Twice a Day 27. Singulair - 10 mg Daily 28. Vitamin D - 5,000 unit 1 tab Daily 29. Zofran - 8 mg 8 mg three times a day prn nausea 30. Zofran - 8 mg 1 tab Every 8 Hours?[facility]ra Meds? Medications Last Reconciled by Tanvi Douglas MD on 11/09/2024 ALLERGIES: No Known Drug Allergies REVIEW OF SYSTEMS: A complete 14-point review of systems was performed and is negative except as noted in interval history. PHYSICAL EXAMINATION:?[facility] PE? VITAL SIGNS: Temperature?98.3, B/P?126/69, Oxygen?Saturation?94% Weight?90?lbs (Change?since?11/08/24:?-0.6?lbs) PAIN: 0 - No pain ECOG Performance Status: 2 - Symptomatic; ambulatory; capable of self-care; >50% of waking hrs. not in bed GENERAL APPEARANCE: Appears emaciated , in no apparent distress, appropriately interactive. In wheel chair HEENT: Normocephalic, no temporal wasting, normal conjunctiva, no scleral icterus, normal hearing, lips without lesions, neck normal range of motion. CARDIOVASCULAR: Not assessed. PULMONARY: In wheelchair on oxygen EXTREMITIES: No pedal edema or cyanosis. SKIN: Normal skin appearance. NEUROLOGIC: Alert and oriented x4. PSHYCHIATRIC: Appropriate affect, mood normal, behavior normal, intact thought and speech. LABORATORY DATA: I have personally reviewed and interpreted each of the patient?s relevant lab tests, abnormal findings are below: Date 10/26/24 10/27/24 11/08/24 ??WHITE?BLOOD?COUNT?(Thou/mm3) ? ? 4.1 ??RED?BLOOD?COUNT?(Miln/mm3) ? ? 2.96?L ??HEMOGLOBIN?(gm/dl) ? ? 9.6?L ??HEMATOCRIT?(%) ? ? 29.5?L ??PLATELET?COUNT?(Thou/mm3) ? ? 300 ??NEUTROPHILS?%,?AUTO?(%) ? ? 70 ??LYMPH?%,?AUTO?(%) ? ? 17 ??NEUTROPHILS,?AUTO?(Thou/mm3) ? ? 2.9 ??GLUCOSE,RANDOM?(mg/dL) 174?H 151?H 117?H ??BLOOD?UREA?NITROGEN?(mg/dL) 32?H 32?H 34?H ??CREATININE?(mg/dL) 0.90 0.80 0.90 ??SODIUM?(mmol/L) 142 142 138 ??POTASSIUM?(mmol/L) 3.8 3.7 4.8 ??CHLORIDE?(mmol/L) 107 102 100 ??CrCl?(CandG)?(ml/min) 33.96 38.20 33.96 ??AST/SGOT?(Unit/L) 115?H 137?H 65?H ??ALT/SGPT?(Unit/L) 115?H 132?H 56?H ??ALKALINE?PHOSPHATASE?(Unit/L) 584?H 572?H 791?H ??BILIRUBIN,?TOTAL?(mg/dL) 0.2?L 0.3 0.3 ??PROTEIN?TOTAL?(gm/dl) 5.9 6.4 6.2 ??ALBUMIN,?SERUM?(gm/dl) 3.6 3.6 3.6 ??GLOBULIN?(gm/dl) 2.3 2.8 2.6 ??ALBUMIN/GLOBULIN?RATIO 1.6 1.3 1.4 ??CALCIUM,?SERUM?(mg/dL) 12.8?HH 12.6?H 9.6 ??CALCIUM?SERUM?(CORRECTED)?(mg/dL) 13.1?HH 12.9?H 9.9 ASSESSMENT/PLAN:?Sj Lazaro Assessment/Plan? Niall Ortiz, a patient with extensive history of smoking and small cell lung cancer here for follow-up Metastatic Lung Cancer Assessment: Patient has a known history of lung cancer, likely related to smoking. Recent imaging studies reveal progression of metastatic disease. MRI of the brain was negative, but there is evidence of metastases in the liver, bones (right acromion, 4th and 7th ribs, and left humerus), and persistent lung involvement. The patient reports significant right shoulder pain, correlating with the metastasis in the right acromion. Previous treatment with carboplatin, etoposide, and atezolizumab (1st line therapy) has shown partial response in the lungs, but disease progression in other sites indicates treatment resistance. Patient was switched to lurbinectedin Patient tolerating well Weight is stable Will continue treatment Discussed overall prognosis guarded Patient want to continue treatment at this time Patient is full care is unable to take care of herself Patient lives with a care provider Severe Osteopenia Assessment: Patient has been diagnosed with severe osteopenia, which increases her risk of fractures, especially in the context of her weakness and difficulty walking. Plan: - Educate patient on fall prevention strategies - Recommend calcium and vitamin D supplementation (specific doses not mentioned) -Will consider bisphosphonate therapy if patient can get a dental evaluation History of Pulmonary Embolism Assessment: Patient has a history of pulmonary embolism and is currently on anticoagulation therapy with Eliquis. Plan: - Continue Eliquis as prescribed for anticoagulation - Monitor for signs of bleeding or thrombosis at follow-up visits ORDERS: Order # Description [id number] Follow Up Appointment [id number] Follow Up Appointment [id number] Follow Up Appointment [id number] Follow Up Appointment [id number] Follow Up Appointment [id number] Follow Up Appointment RETURN TO CLINIC: I reviewed the diagnosis, prognosis, and recommended treatment/procedure options with the patient (and/or their legal client representative), including the potential benefits, risks, side effects and alternative therapies. We also discussed the option of no treatment and the possibility of clinical trial participation, if applicable. All questions were addressed, and they demonstrated understanding. They provided informed consent to proceed with the proposed plan of care. BILLING AND COMPLIANCE: I reviewed external records from providers outside my specialty as summarized above. I spent a total of 50 minutes on this patient?s care on the day of their visit excluding time spent related to any billed procedures. This time includes time spent with the patient as well as time spent documenting in the medical record, reviewing patients records and tests, obtaining history, placing orders, communicating with other healthcare professionals, counseling the patient, family or caregiver, and/or care coordination for the diagnoses above. Electronically Signed by: Schuyler Lazaro MD T: 12:39 AM CC: Jese? PCP: Schuyler Lazaro Referring: Schuyler Lazaro This document was completed utilizing speech recognition software. Grammatical errors, random word insertions, pronoun errors, and incomplete sentences are an occasional consequence of this system due to software limitations, ambient noise, and hardware issues. Any formal questions or concerns about the content, text or information contained within the body of this dictation should be directly addressed to the provider for clarification.
[2024-11-22 11:13] LABS: Basophils # (Auto) 0.0 Thou/mm3 (0.0-0.2); Basophils % (Auto) 0 % (0-2.5); Eosinophils # (Auto) 0.0 Thou/mm3 (0.0-0.5); Eosinophils % (Auto) 0 % (0-10); Hematocrit 33.5 % (36.0-46.0); Hemoglobin 10.7 g/dL (12.0-16.0); Immature Granulocytes Auto 0.04 Thou/mm3 (0.00-0.00); Lymphocytes # (Auto) 0.7 Thou/mm3 (1.0-4.8); Lymphocytes % (Auto) 7 % (10-50); Mean Corpuscular HGB Conc 31.9 g/dl (31.0-37.0); Mean Corpuscular Hemoglobin 31.5 pg (25.0-35.0); Mean Corpuscular Volume 99 fL (80-100); Monocytes # (Auto) 0.6 Thou/mm3 (0.0-0.8); Monocytes % (Auto) 6 % (0-12); Neutrophils # (Auto) 8.3 Thou/mm3 (1.8-7.7); Neutrophils % (Auto) 86 % (37-80); Nucleated Red Blood Cell # 0.00 Thou/mm3 (0.00-0.00); Nucleated Red Blood Cell % 0 /100 WBC (0); Platelet Count 358 Thou/mm3 (140-440); RDW Standard Deviation 55.8 fL (36.4-46.3); Red Blood Count 3.40 Miln/mm3 (4.00-5.20); White Blood Count 9.6 Thou/mm3 (3.6-11.0)
[2024-11-22 11:51] LABS: Alanine Aminotransferase 59 U/L (10-49); Albumin, Serum 3.3 gm/dL (3.4-4.8); Albumin/Globulin Ratio 1.2 (1.2-2.2); Alkaline Phosphatase 1094 U/L (46-116); Anion Gap 12 (7-16); Aspartate Amino Transferase 121 U/L (0-34); BUN/Creatinine Ratio 50 Ratio (12-20); Bilirubin,Total 0.6 mg/dL (0.3-1.2); Blood Urea Nitrogen 45 mg/dL (9-23); Calcium 9.3 mg/dL (8.3-10.6); Calcium (Corrected) 9.9 mg/dL (8.5-10.1); Carbon Dioxide 23.5 mMol/L (20.0-31.0); Chloride 101 mMol/L (98-107); Creatinine (Component) 0.9 mg/dL (0.6-1.3); Globulin 2.7 gm/dL (2.3-3.5); Glucose 67 mg/dL (74-106); Osmolality,Calculated 281 (275-295); Potassium 4.9 mMol/L (3.4-5.1); Sodium 136 mMol/L (136-145); Total Protein 6.0 gm/dL (5.7-8.2); eGFR > 60 See Note
== END 2024-12-05 23:59 | disposition home or self-care (01) ==
LOC: SCTC 10:15
PROVIDERS: PCP Nurse Practitioner; Referring Provider Internal Medicine Hematology & Oncology; Visit Provider Internal Medicine Hematology & Oncology
DX: Z51.11 Encounter for antineoplastic chemotherapy (principal); C34.12 Malignant neoplasm of upper lobe, left bronchus or lung; Z87.891 Personal history of nicotine dependence; C79.51 Secondary malignant neoplasm of bone; C78.7 Secondary malignant neoplasm of liver and intrahepatic bile duct; C77.0 Secondary and unspecified malignant neoplasm of lymph nodes of head, face and neck; G89.3 Neoplasm related pain (acute) (chronic); M85.80 Other specified disorders of bone density and structure, unspecified site; Z86.711 Personal history of pulmonary embolism; Z79.01 Long term (current) use of anticoagulants
CPT/HCPCS: 36591; 80053; 85025; 96361; 96367; 96413; 99212; A4216; J1100; J1642; J2405; J3490; J7030; J7040; J7050; J9223; G0463